=== PATIENT | female | born 1960 | race Caucasian/White ===

== ENCOUNTER → 2016-04-15 | Outpatient (CLI) | payer OTHER ==
[~2016-04-15] MED LIST: AMT10 PO; ASPCH81X PO; ATOR-26 PO; ATOR10TA82 PO; ATV1 PO; ATV5 PO; B-COTAB18 PO; BUPR-79 PO; BUPR300T43 PO; CALC-20 PO; CHOL100010 PO; CHOL2000 PO; CHOLCAP10 PO; CLOP1TAB15 PO; COCO1CAP PO; CODEINE #3 PO; CYAN500T13 PO; CYCL10TA6 PO; CYM/30 PO; CYM60 PO; DEXL60CA4 PO; DULO60CA44 PO; FERR1TAB23 PO; IBUP-1050 PO; INSU50IN3 SQ; ISOS-10 PO; MAGN500T15 PO; METF1000 PO; METO50TA16 PO; NAPR500T3 PO; NIAC500T11 PO; NTRGSL/4 SL; PRAS50TA PO; PROB1CAP PO; TRAM-10 PO; [UNRECOGNIZED DRUG - CODE] PO
== END | disposition home or self-care (01) ==
LOC: C.NEUR 14:48
PROVIDERS: ATTEND Internal Medicine Pulmonary Disease
DX: G47.33 Obstructive sleep apnea (adult) (pediatric) (principal); E66.01 Morbid (severe) obesity due to excess calories; F17.200 Nicotine dependence, unspecified, uncomplicated; Z91.19 Patient's noncompliance with other medical treatment and regimen

== ENCOUNTER → 2016-05-20 | Day surgery (SDC) | payer OTHER ==
[2016-05-14 13:04] VITALS: BMI 37.0
[~2016-05-20] VITALS: Ht 162.6 cm; Wt 97.7 kg
[~2016-05-20] MED LIST changes: -AMT10 PO; -ATOR10TA82 PO; -ATV5 PO; -BUPR-79 PO; -CHOL100010 PO; -CHOL2000 PO; -CYAN500T13 PO; -CYM60 PO; -INSU50IN3 SQ; -ISOS-10 PO; +LIDOCAINE HCL 2% 2 ML VIAL (20MG/ML) ONE; +PROPOFOL IV EMULSION 10 MG/ML 20 ML VIAL IV ONE; +SODIUM CHLORIDE 0.9% 500ML 500 ML IV ONE
[2016-05-20 08:10] VITALS: Ht 162.6 cm; Wt 97.7 kg
--- NOTE | 2016-05-20 08:33 | Endo History and Physical ---
History & Physical Date of Service: May 20, 2016. Chief Complaint: Abnormal CT scan Referring Physician: Dr. Orozco History of Present Illness 55 yo CF who presents for EGD secondary to abnormal CT Scan. Past Surgical History Hx Cardiac Surgery: Yes (HEART CATH, STENTS X2) Hx Internal Defibrillator: No Hx Pacemaker: No Hx Abdominal Surgery: Yes (ROBER BSO) Hx of Implantable Prosthesis: No Hx Post-Op Nausea and Vomiting: No Hx Cancer Surgery: No Hx Thoracic Surgery: No Hx Orthopedic: No Hx Urinary Tract Surgery: No Family History Esophogeal CA, IBD Social History Smoking Status: Current Every Day Smoker Hx Substance Use: Yes (MARIJUANA USE A COUPLE TIMES/DAY) Hx Alcohol Use: Yes (OCCASIONAL) Allergies Coded Allergies: No Known Allergies (Unverified , 05/20/16) Current Medications Reported Home Medications Medications Dose Route/Sig Max Daily Dose Days Date Category Dose Instructions Awake Maximum Strength (Caffeine) 200 Mg Tab 2 Tabs PO QAM 05/14/16 Reported Cymbalta (Duloxetine Hcl) 60 Mg Cap 60 Mg PO QAM 05/14/16 Reported [Codeine #3] 1 Tab PO DAILY PRN 05/14/16 Reported Naproxen 500 Mg Tab 1 Tab PO BID PRN 05/14/16 Reported Niacin 500 Mg Tab 500 Mg PO HS 05/14/16 Reported Magnesium 500 Mg Tab 1 Tab PO HS 05/14/16 Reported Iron (Ferrous Sulfate) 325 Mg Tab 1 Tab PO HS 05/14/16 Reported Coconut Oil Organic (Coconut Oil) 1,000 Mg Cap 2 Tabs PO BID 05/14/16 Reported Acidophilus Super Probiot (Probiotic Product) 1 Cap Cap 1 Tab PO BID 05/14/16 Reported Dhea (Prasterone (Dhea)) 50 Mg Tab 1 Tab PO BID 05/14/16 Reported Vitamin B Complex (B-Complex Vitamins) 1 Tab Tab 1 Tab PO QAM 05/14/16 Reported Cymbalta (Duloxetine Hcl) 30 Mg Cap 30 Mg PO QAM 05/14/16 Reported D 5000 (Cholecalciferol) 5,000 Unit Cap 3 Tabs PO BID 05/14/16 Reported Lipitor (Atorvastatin Calcium) 80 Mg Tab 80 Mg PO HS 05/14/16 Reported Bupropion Hcl Xl (Bupropion Hcl) 300 Mg Tab 1 Tab PO QAM 1/31/17 Reported Aspirin Chewable (Aspirin) 81 Mg Chew 3 Tabs PO HS 11/03/13 Reported Calcium 600 + D (Calcium Carbonate-Vitamin D) 1 Tab Tab 1 Tab PO HS 11/03/13 Reported Nitrostat (Nitroglycerin) 0.4 Mg Tab 1 Tab SL UD PRN 11/03/13 Reported Lopressor (Metoprolol Tartrate) 50 Mg Tab 50 Mg PO BID 11/03/13 Reported Dexilant (Dexlansoprazole) 60 Mg Cap 60 Mg PO HS 11/03/13 Reported Glucophage (Metformin Hcl) 1,000 Mg Tab 1,000 Mg PO BID 03/30/13 Reported Flexeril (Cyclobenzaprine Hcl) 10 Mg Tab 10 Mg PO TID PRN 03/30/13 Reported PRN Advil (Ibuprofen) 200 Mg Tab 200-600 Mg PO Q4-6H PRN 09/06/08 Reported Ultram (Tramadol HCl) 50 Mg Tab 100 Mg PO BID 08/09/08 Reported PRN PAIN Ativan * (Lorazepam) 1 Mg Tab 1 Mg PO QAM 11/25/06 Reported Plavix (Clopidogrel Bisulfate) 75 Mg Tab 75 Mg PO QAM 03/29/06 Reported Vital Signs Weight (Kilograms): 97.73 Height (Feet): 5 Height (Inches): 4 Physical Exam General Appearance: WD/WN, no apparent distress Respiratory/Chest: Auscultation: breath sounds normal Cardiovascular: Heart Auscultation: RRR Abdomen: Bowel Sounds: normal Inspection & Palpation: soft, non-distended, no tenderness, guarding & rebound Assessment and Plan Assessment: 55 yo CF who presents for EGD secondary to abnormal CT Scan. Plan: Proceed with EGD.
[2016-05-20 08:34] VITALS: TEMP 37.3
--- NOTE | 2016-05-20 09:01 | Discharge Instructions ---
Endoscopy Patient Instructions Date / Procedure(s) Performed May 20, 2016. EGD Allergy Information Coded Allergies: No Known Allergies (Unverified , 05/20/16) Discharge Date / Findings May 20, 2016. Gastritis s/p biopsies Medication Instructions Stopped Medication(s): PLAVIX OK to resume all medications today as prescribed Reported Home Medications Medications Dose Route/Sig Max Daily Dose Days Date Category Dose Instructions Awake Maximum Strength (Caffeine) 200 Mg Tab 2 Tabs PO QAM 05/14/16 Reported Cymbalta (Duloxetine Hcl) 60 Mg Cap 60 Mg PO QAM 05/14/16 Reported [Codeine #3] 1 Tab PO DAILY PRN 05/14/16 Reported Naproxen 500 Mg Tab 1 Tab PO BID PRN 05/14/16 Reported Niacin 500 Mg Tab 500 Mg PO HS 05/14/16 Reported Magnesium 500 Mg Tab 1 Tab PO HS 05/14/16 Reported Iron (Ferrous Sulfate) 325 Mg Tab 1 Tab PO HS 05/14/16 Reported Coconut Oil Organic (Coconut Oil) 1,000 Mg Cap 2 Tabs PO BID 05/14/16 Reported Acidophilus Super Probiot (Probiotic Product) 1 Cap Cap 1 Tab PO BID 05/14/16 Reported Dhea (Prasterone (Dhea)) 50 Mg Tab 1 Tab PO BID 05/14/16 Reported Vitamin B Complex (B-Complex Vitamins) 1 Tab Tab 1 Tab PO QAM 05/14/16 Reported Cymbalta (Duloxetine Hcl) 30 Mg Cap 30 Mg PO QAM 05/14/16 Reported D 5000 (Cholecalciferol) 5,000 Unit Cap 3 Tabs PO BID 05/14/16 Reported Lipitor (Atorvastatin Calcium) 80 Mg Tab 80 Mg PO HS 05/14/16 Reported Bupropion Hcl Xl (Bupropion Hcl) 300 Mg Tab 1 Tab PO QAM 05/14/16 Reported Aspirin Chewable (Aspirin) 81 Mg Chew 3 Tabs PO HS 11/03/13 Reported Calcium 600 + D (Calcium Carbonate-Vitamin D) 1 Tab Tab 1 Tab PO HS 11/03/13 Reported Nitrostat (Nitroglycerin) 0.4 Mg Tab 1 Tab SL UD PRN 11/03/13 Reported Lopressor (Metoprolol Tartrate) 50 Mg Tab 50 Mg PO BID 11/03/13 Reported Dexilant (Dexlansoprazole) 60 Mg Cap 60 Mg PO HS 11/03/13 Reported Glucophage (Metformin Hcl) 1,000 Mg Tab 1,000 Mg PO BID 03/30/13 Reported Flexeril (Cyclobenzaprine Hcl) 10 Mg Tab 10 Mg PO TID PRN 03/30/13 Reported PRN Advil (Ibuprofen) 200 Mg Tab 200-600 Mg PO Q4-6H PRN 09/06/08 Reported Ultram (Tramadol HCl) 50 Mg Tab 100 Mg PO BID 08/09/08 Reported PRN PAIN Ativan * (Lorazepam) 1 Mg Tab 1 Mg PO QAM 11/25/06 Reported Plavix (Clopidogrel Bisulfate) 75 Mg Tab 75 Mg PO QAM 03/29/06 Reported Provider Instructions Activity Restrictions - No exercising or heavy lifting for 24 hours. - Do not drink alcohol the day of the procedure. - Do not drive a car or operate machinery until the day after the procedure. - Do not make any important decisions or sign important papers in 24 hours after the procedure. Following Day: - Return to full activity which may include returning to work/school. Diet Start your diet with liquids and light foods (jello, soup, juice, toast). Then eat your usual diet if not nauseated. Treatment For Common After Affects For mild abdominal pain, bloating, or excessive gas: - Rest - Eat lightly - Lie on right side Follow-Up Information Follow-up with [facility] as scheduled Anesthesia Information What You Should Know You have had a procedure that required some medicine to reduce anxiety and discomfort. This treatment is called moderate sedation. After receiving the treatment, you may be sleepy, but you will be able to breathe on your own. The effects of the treatment may last for several hours. Follow these instructions along with Activity/Diet recommendations noted above: * Do NOT do anything where dizziness or clumsiness would be dangerous. * Rest quietly at home today, then you can be up and about tomorrow. * Have a responsible person stay with you the rest of today. * You may have had an I.V. today. If so, you may take the dressing off later today. Recommendations Call your doctor if: * Trouble breathing * Continuous vomiting for more than 24 hours * Temperature above 101 degrees * Severe abdominal pain or bloating * Pain not relieved by pain medicine ordered * There is increased drainage or redness from any incision * A large amount of rectal bleeding greater than 2-3 tablespoons. (If you had a polyp/s removed or have hemorrhoids, a small amount of blood - from the rectum is to be expected.) * You have any unanswered questions or concerns. IN THE EVENT OF A SERIOUS EMERGENCY, GO TO THE NEAREST EMERGENCY ROOM Your discharge instructions were prepared by provider Lenin Berry. Patient Instructions Signature Page Amber Griffin Patient (or Guardian) Signature/Date: I have read and understand the instructions given to me by my caregivers. Caregiver/RN/Doctor Signature/Date: The above-named patient and/or guardian has received patient instructions on this date. + Original Patient Signature Page (only) stays with chart. Please make copy for patient.
--- NOTE | 2016-05-20 09:14 | GI REPORT ---
Procedure Date: 05/20/2016 8:35 AM Procedure: Upper GI endoscopy Indications: Abnormal CT of the GI tract Medicines: Monitored Anesthesia Care Complications: No immediate complications. Estimated Blood Loss: Estimated blood loss: none. Procedure: Pre-Anesthesia Assessment: - Prior to the procedure, a History and Physical was performed, and patient medications and allergies were reviewed. The patient's tolerance of previous anesthesia was also reviewed. The risks and benefits of the procedure and the sedation options and risks were discussed with the patient. All questions were answered, and informed consent was obtained. Prior Anticoagulants: The patient last took aspirin 1 day and Plavix (clopidogrel) 5 days prior to the procedure. ASA Grade Assessment: III - A patient with severe systemic disease. After reviewing the risks and benefits, the patient was deemed in satisfactory condition to undergo the procedure. After obtaining informed consent, the endoscope was passed under direct vision. Throughout the procedure, the patient's blood pressure, pulse, and oxygen saturations were monitored continuously. The scope was introduced through the mouth, and advanced to the second part of duodenum. The upper GI endoscopy was accomplished without difficulty. The patient tolerated the procedure well. Findings: The examined esophagus was normal. Localized moderate inflammation characterized by erythema was found in the gastric antrum. Biopsies were taken with a cold forceps for histology. The examined duodenum was normal. Impression: - Normal esophagus. - Gastritis. Biopsied. - Normal examined duodenum. Recommendation: - Resume previous diet. - Continue present medications. - Await pathology results. - Return to primary care physician as previously scheduled. Lenin Berry DO 05/20/2016 9:14:26 AM This report has been signed electronically. Note Initiated On: 05/20/2016 8:35 AM I attest to the content of the Intraoperative Record and orders documented therein, exceptions below
--- NOTE | 2016-05-20 09:18 | Anesthesiology Progress Note ---
Anesthesia Post Op Note Date & Time May 20, 2016 at 09:18 Vital Signs Vital Signs Past 12 Hours Date Time Temp Pulse Resp B/P Pulse Ox O2 Delivery O2 Flow Rate FiO2 05/20/16 09:08 71 20 140/72 97 Room Air 05/20/16 08:34 37.3 73 18 184/95 95 Room Air Notes Mental Status: alert / awake / arousable, participated in evaluation Pt Amnestic to Procedure: Yes Nausea / Vomiting: adequately controlled Pain: adequately controlled Airway Patency, RR, SpO2: stable & adequate BP & HR: stable & adequate Hydration State: stable & adequate Anesthetic Complications: no major complications apparent
[2016-05-20 09:38] VITALS: BP 135/86; PULSE 68; O2SAT 96
== END | disposition home or self-care (01) ==
LOC: C.GI 07:51
PROVIDERS: ATTEND Internal Medicine
DX: K29.60 Other gastritis without bleeding (principal); Z80.0 Family history of malignant neoplasm of digestive organs; Z83.79 Family history of other diseases of the digestive system; F17.210 Nicotine dependence, cigarettes, uncomplicated

== ENCOUNTER → 2016-05-29 | Outpatient (CLI) | payer OTHER ==
[~2016-05-29] MED LIST changes: -LIDOCAINE HCL 2% 2 ML VIAL (20MG/ML) ONE; -PROPOFOL IV EMULSION 10 MG/ML 20 ML VIAL IV ONE; -SODIUM CHLORIDE 0.9% 500ML 500 ML IV ONE
[2016-05-29 17:36] LABS: BASO % 0.4 %; BASO ABS # 0.04 K/uL (0-0.2); COMPLETE YES; HEMATOCRIT 40.6 % (37-47); IG% 0.2 %; MEAN CELL VOLUME 88.6 fL (80-100); MEAN CORPUSCULAR HEMOGLOBIN 31.7 pg (25-34); MEAN CORPUSCULAR HGB CONC 35.7 g/dl (32-36); MEAN PLATELET VOLUME 9.9 fL (7.4-10.4); MONO % 5.6 %; NEUT % 58.8 %; PLATELET COUNT 248 K/uL (130-400); RED BLOOD COUNT 4.58 M/uL (4.2-5.4); WHITE BLOOD COUNT 9.32 K/uL (4.8-10.8)
[2016-05-29 18:03] LABS: ALT/SGPT 19 U/L (12-78); AMYLASE 21 U/L (25-115); AST/SGOT 10 U/L (15-37); BLOOD UREA NITROGEN 12 mg/dl (7-18); CARBON DIOXIDE 28 mmol/L (21-32); CHLORIDE 106 mmol/L (98-107); CHOLESTEROL 125 mg/dl (0-200); CREATININE 0.92 mg/dl (0.60-1.20); GLUCOSE 97 mg/dl (70-99); POTASSIUM 3.8 mmol/L (3.5-5.1); SODIUM 141 mmol/L (136-145)
[2016-05-29 18:06] LABS: CHOLESTEROL/HDL RATIO 2.8; HDL CHOLESTEROL 45 mg/dl; LDL CHOLESTEROL CALCULATED 55 mg/dl; TRIGLYCERIDES 126 mg/dl (0-150); VERY LOW DENSITY LIPOPROT CALC 25 mg/dl
[2016-05-30 05:51] LABS: ESTIMATED AVERAGE GLUCOSE 143 mg/dl; HA1C FLAG Normal (Normal)
== END | disposition home or self-care (01) ==
LOC: C.LAB1850 16:40
PROVIDERS: ATTEND Internal Medicine
DX: E11.65 Type 2 diabetes mellitus with hyperglycemia (principal); K76.0 Fatty (change of) liver, not elsewhere classified; R11.0 Nausea

== ENCOUNTER → 2016-08-26 | Outpatient (CLI) | payer OTHER ==
[2016-08-26 17:43] LABS: BASO % 0.4 %; BASO ABS # 0.04 K/uL (0-0.2); COMPLETE YES; EOS % 4.2 %; HEMATOCRIT 41.6 % (37-47); IG% 0.3 %; LYMPH % 23.5 %; LYMPH ABS # 2.22 K/uL (1.2-3.4); MEAN CELL VOLUME 89.8 fL (80-100); MEAN CORPUSCULAR HEMOGLOBIN 31.5 pg (25-34); MEAN CORPUSCULAR HGB CONC 35.1 g/dl (32-36); MEAN PLATELET VOLUME 10.3 fL (7.4-10.4); MONO % 3.9 %; NEUT % 67.7 %; PLATELET COUNT 275 K/uL (130-400); RED BLOOD COUNT 4.63 M/uL (4.2-5.4); WHITE BLOOD COUNT 9.45 K/uL (4.8-10.8)
[2016-08-26 17:49] LABS: URINE APPEARANCE CLEAR (CLEAR); URINE BILIRUBIN NEG (NEG); URINE COLOR DK YELLOW; URINE EPITHELIAL CELL AUTO >30 /lpf (0-5); URINE NITRITE NEG (NEG); UROBILINOGEN NEG (NEG)
[2016-08-26 17:52] LABS: MANUAL MICROSCOPIC REQUIRED? NO; REVIEW REQ? NO
[2016-08-26 18:23] LABS: BLOOD UREA NITROGEN 12 mg/dl (7-18); BUN/CREATININE RATIO 12.9 (10-20); CALCIUM 9.3 mg/dl (8.5-10.1); CARBON DIOXIDE 31 mmol/L (21-32); CHLORIDE 106 mmol/L (98-107); CREATININE 0.96 mg/dl (0.60-1.20); GLUCOSE 196 mg/dl (70-99); POTASSIUM 4.1 mmol/L (3.5-5.1); SODIUM 141 mmol/L (136-145)
[2016-08-26 18:34] LABS: THYROID STIMULATING HORMONE 0.795 uIu/ml (0.300-4.500)
[2016-08-27 07:34] LABS: ESTIMATED AVERAGE GLUCOSE 148 mg/dl; HA1C FLAG Normal (Normal)
== END | disposition home or self-care (01) ==
LOC: C.LAB1850 16:43
PROVIDERS: ATTEND Internal Medicine
DX: R31.0 Gross hematuria (principal); R13.10 Dysphagia, unspecified; E11.65 Type 2 diabetes mellitus with hyperglycemia

== ENCOUNTER → 2017-01-02 | Outpatient (CLI) | payer OTHER ==
[2017-01-02 17:42] LABS: HEMATOCRIT 41.2 % (37-47); MEAN CELL VOLUME 91.2 fL (80-100); MEAN CORPUSCULAR HEMOGLOBIN 32.3 pg (25-34); MEAN CORPUSCULAR HGB CONC 35.4 g/dl (32-36); MEAN PLATELET VOLUME 10.7 fL (7.4-10.4); PLATELET COUNT 250 K/uL (130-400); RED BLOOD COUNT 4.52 M/uL (4.2-5.4); WHITE BLOOD COUNT 8.84 K/uL (4.8-10.8)
[2017-01-02 17:51] LABS: URINE APPEARANCE CLEAR (CLEAR); URINE BILIRUBIN NEG (NEG); URINE COLOR YELLOW; URINE NITRITE NEG (NEG); URINE PH 6.5 (4.5-7.5); URINE SPECIFIC GRAVITY 1.016 (1.000-1.030); UROBILINOGEN NEG (NEG)
[2017-01-02 17:55] LABS: MANUAL MICROSCOPIC REQUIRED? NO; REVIEW REQ? NO
[2017-01-02 18:18] LABS: ALT/SGPT 18 U/L (12-78); AST/SGOT 10 U/L (15-37); BLOOD UREA NITROGEN 10 mg/dl (7-18); BUN/CREATININE RATIO 8.2 (10-20); CALCIUM 9.2 mg/dl (8.5-10.1); CARBON DIOXIDE 28 mmol/L (21-32); CHLORIDE 106 mmol/L (98-107); GLUCOSE 153 mg/dl (70-99); POTASSIUM 4.2 mmol/L (3.5-5.1); SODIUM 141 mmol/L (136-145)
[2017-01-02 18:20] LABS: ALKALINE PHOSPHATASE 88 U/L (45-117)
[2017-01-03 06:02] LABS: ESTIMATED AVERAGE GLUCOSE 143 mg/dl; HA1C FLAG Normal (Normal)
== END | disposition home or self-care (01) ==
LOC: C.LAB1850 16:30
PROVIDERS: ATTEND Internal Medicine
DX: N39.3 Stress incontinence (female) (male) (principal); E11.9 Type 2 diabetes mellitus without complications; E55.9 Vitamin D deficiency, unspecified; K76.0 Fatty (change of) liver, not elsewhere classified; R60.0 Localized edema

== ENCOUNTER → 2017-05-12 | Outpatient (CLI) | payer OTHER ==
[2017-05-12 17:14] LABS: HEMATOCRIT 41.7 % (37-47); HEMOGLOBIN 14.5 g/dL (12.0-16.0); MEAN CELL VOLUME 90.3 fL (80-100); MEAN CORPUSCULAR HEMOGLOBIN 31.4 pg (25-34); MEAN CORPUSCULAR HGB CONC 34.8 g/dl (32-36); MEAN PLATELET VOLUME 10.9 fL (7.4-10.4); PLATELET COUNT 236 K/uL (130-400); RED CELL DISTRIBUTION WIDTH CV 12.7 % (11.5-14.5); RED CELL DISTRIBUTION WIDTH SD 41.3 fL (36.4-46.3)
[2017-05-12 17:34] LABS: ALT/SGPT 17 U/L (12-78); AST/SGOT 10 U/L (15-37); BLOOD UREA NITROGEN 11 mg/dl (7-18); CALCIUM 9.2 mg/dl (8.5-10.1); CARBON DIOXIDE 27 mmol/L (21-32); CHOLESTEROL 101 mg/dl (0-200); CREATININE 1.04 mg/dl (0.60-1.20); GLUCOSE 142 mg/dl (70-99); POTASSIUM 4.1 mmol/L (3.5-5.1); SODIUM 139 mmol/L (136-145)
[2017-05-12 17:36] LABS: LDL CHOLESTEROL CALCULATED 37 mg/dl
[2017-05-13 06:21] LABS: HEMOGLOBIN A1C 6.4 % (4.5-5.6)
== END | disposition home or self-care (01) ==
LOC: C.LAB1850 16:00
PROVIDERS: ATTEND Internal Medicine
DX: E11.65 Type 2 diabetes mellitus with hyperglycemia (principal); E78.5 Hyperlipidemia, unspecified; E55.9 Vitamin D deficiency, unspecified; R10.9 Unspecified abdominal pain

== ENCOUNTER → 2017-07-14 | Outpatient (CLI) | payer OTHER ==
[~2017-07-14] MED LIST changes: +NAPR-1231 PO; -NAPR500T3 PO
[2017-07-14 17:39] LABS: BASO % 0.8 %; BASO ABS # 0.07 K/uL (0-0.2); EOS % 3.4 %; HEMOGLOBIN 14.2 g/dL (12.0-16.0); IG# 0.02 K/uL (0.00-0.02); LYMPH % 30.3 %; MEAN CELL VOLUME 88.4 fL (80-100); MEAN CORPUSCULAR HEMOGLOBIN 32.2 pg (25-34); MEAN CORPUSCULAR HGB CONC 36.4 g/dl (32-36); MEAN PLATELET VOLUME 10.7 fL (7.4-10.4); MONO % 4.3 %; MONO ABS # 0.38 K/uL (0.11-0.59); NEUT ABS # 5.45 K/uL (1.4-6.5); PLATELET COUNT 252 K/uL (130-400); RED CELL DISTRIBUTION WIDTH CV 12.5 % (11.5-14.5); WHITE BLOOD COUNT 8.92 K/uL (4.8-10.8)
[2017-07-14 18:23] LABS: ALBUMIN 3.6 gm/dl (3.4-5.0); ALT/SGPT 18 U/L (12-78); BLOOD UREA NITROGEN 14 mg/dl (7-18); CARBON DIOXIDE 28 mmol/L (21-32); CREATININE 1.12 mg/dl (0.60-1.20); GLUCOSE 108 mg/dl (70-99); POTASSIUM 4.2 mmol/L (3.5-5.1); SODIUM 138 mmol/L (136-145)
[2017-07-14 18:34] LABS: ALKALINE PHOSPHATASE 127 U/L (45-117); AST/SGOT 13 U/L (15-37); TOTAL PROTEIN 7.2 gm/dl (6.4-8.2)
== END | disposition home or self-care (01) ==
LOC: C.LAB1850 16:31
PROVIDERS: ATTEND Internal Medicine
DX: R42 Dizziness and giddiness (principal)

== ENCOUNTER → 2017-11-14 | Outpatient (CLI) | payer OTHER ==
--- NOTE | 2017-11-14 14:37 | MAMMOGRAPHY REPORT ---
BILATERAL DIGITAL DIAGNOSTIC MAMMOGRAM TOMOSYNTHESIS WITH CAD: 11/14/2017 CLINICAL HISTORY: The patient reports nonfocal left breast discomfort intermittently for at least one year. She denies any palpable lump, skin changes, or other complaints. TECHNIQUE: The study was acquired using full field digital technology and interpreted from soft copy. Breast tomosynthesis in addition to standard 2D mammography was performed. Current study was also ev aluated with a Computer Aided Detection (CAD) system. Bilateral CC and MLO to gentamicin that this i mages were obtained. COMPARISON: Comparison is made to exams dated: 10/24/2009 mammogram - [facility]. BREAST COMPOSITION: There are scattered areas of fibroglandular density in both breasts. FINDINGS: A square marker was placed by the technologist on the left breast at the site of pain, however, on di scussion with the patient the pain is diffuse and nonfocal. There are no suspicious masses, calcific ations, or areas of architectural distortion noted within either breast. There has been no significa nt interval change mammographically compared to prior exams. A circular marker jolly a mole on the l eft upper outer breast. As the pain is diffuse and nonfocal and given no mammographic abnormality, t argeted ultrasound was not performed. IMPRESSION: ACR BI-RADS CATEGORY 2: BENIGN No etiology for intermittent left breast discomfort evident. There is no mammographic evidence of ma lignancy in either breast. Recommend clinical follow-up for left breast discomfort, and recommend ro utine bilateral screening mammograms in one year. The patient has been verbally notified of the results. Some breast cancers are not detected with mammography. A negative mammographic report should not renetta y biopsy if a clinically suggestive mass is present. Inessa Hermosillo M.D. /:11/14/2017 11:57:24 Validation Technician: RT Laureano(Fidencio)(M), [facility] letter sent: Normal 1/2 BI-RADS Code: ACR BI-RADS Category 2: Benign
== END | disposition home or self-care (01) ==
LOC: C.MAMM 10:37
PROVIDERS: ATTEND Internal Medicine
DX: N64.4 Mastodynia (principal)

== ENCOUNTER 2023-08-19 13:20 | Inpatient (IN) ==
--- NOTE | 2023-08-19 14:20 | Emergency Department Note ---
Impression & Plan Paranoid schizophrenia, Psychosis, Acute UTI (urinary tract infection) ED Provider Note NAME: JAE HUERTA AGE: 63 SEX: F : 1960 ARRIVES VIA: Law Enforcement Transport INFORMANT: Patient, ED PROVIDER(S): Viktor Vanegas DO CHIEF COMPLAINT: Mental health evaluation HPI: The patient is a 63-year-old female who is well-known to our facility who presented to the emergency department for an evaluation with the police. The patient has a history of delusional thoughts. She also has a history of schizophrenia. Apparently the patient arrived with police after she was in a neighbor's home. She was trespassing. She has a history of delusional thoughts especially around her neighbors. This is not new. The patient was sprayed with bug spray in the face and hair. She denies having any visual difficulty. She denies having any nausea or vomiting. The patient states that she is been compliant with her outpatient medications. She presented with police for medical clearance. ROS: See above HPI for pertinent positives & negatives. A total of 10 systems reviewed and were otherwise negative. PAST MEDICAL HISTORY: See Below PAST SURGICAL HISTORY: See Below FAMILY HISTORY: See Below SOCIAL HISTORY: See Below HOME MEDICATIONS: See Below ALLERGIES: See Below VITALS: See Below PHYSICAL EXAMINATION: GENERAL: Patient is awake and alert. She is nonanxious appearing. She does smell of cat urine. EYES: The conjunctivae are clear. The pupils are round and reactive. EARS, NOSE, MOUTH AND THROAT: The nose is without any evidence of any deformity. NECK: The neck is nontender and supple. RESPIRATORY: Normal respiratory effort is noted there is no evidence of wheezing rhonchi or rales CARDIOVASCULAR: Regular rate and rhythm noted there no murmurs rubs or gallops normal S1 normal S2. GASTROINTESTINAL: The abdomen is soft. Abdomen is nontender. MUSCULOSKELETAL/EXTREMITIES: There is no evidence of gross deformity full range of motion is noted in the hips and shoulders. SKIN: There is no obvious evidence of any rash. There are no petechiae, pallor or cyanosis noted. NEUROLOGIC: Patient is awake alert and oriented x3 PSYCH: The patient makes good eye contact mostly evaluation. Patient's thought process is somewhat tangential. She does not remember being in her neighbors home. She states the police picked her up from her home but then later states that the police picked her up for a number of her neighbors home. The patient is currently denying any suicidal homicidal ideation. MEDICAL DECISION MAKING: The patient is a 63-year-old female who presented to the department for evaluation with police. The patient has been having chronic problems with schizophrenia. She has psychotic thoughts about her neighbors. She was brought in by police after she was found in her neighbors home. The patient states that she has been compliant with her outpatient medications. Extensive review the patient's previous visits as well as her overall condition does not make me feel the patient is a good candidate for outpatient treatment. For this reason the patient was felt to be a better candidate for inpatient management. I discussed the patient's condition with the emergency department off pillowcase cutter. Triage Nursing notes reviewed. Prior medical records reviewed Vital Signs: reviewed and remarkable for no significant abnormalities Differential diagnosis: Mood disorder, infection, hypoglycemia, electrolyte abnormalities, cardiac sources, intracerebral event, toxicologic, trauma, neurologic, as well as other pathologies. ER treatment provided: See below Diagnostics interpreted by me: ECG: EKG was obtained in the emergency department. My interpretation is normal sinus rhythm at 95 bpm. There is no ectopy. There is no acute ST segment abnormalities noted. This was compared to a tracing from April 24, 2020. No changes were noted Laboratory studies: As stated above and show below. Imaging studies: See below. Consultation(s): I discussed this case with the emergency department mental health pillowcase cutter The patient was evaluated by the delegate from [facility]. The patient was felt to be a good candidate for admission on their inpatient psychiatric unit. Past Med/Surg History Medical History Schizophrenia Psychosis Delusions Encounter for pre-operative examination Diverticulitis ? PT NOT SURE Leg swelling left leg worse/right leg swells on occ Excessive daytime sleepiness on occassion History of anesthesia reaction wake up during anesthesia Gallstones Kidney stones will flare occ Fatty liver Anxiety Poor historian Abdominal tenderness reason for upcoming procedure History of high blood pressure High cholesterol Migraines Type 2 diabetes mellitus ? controlled Encounter for screening for malignant neoplasm of rectum Encounter for screening for malignant neoplasm of colon Dyspnea on exertion Abdominal pain Orthostatic lightheadedness Palpitations Hypomagnesemia Hypophosphatemia Atypical chest pain Radiculopathy, lumbar region Rectal pain Early satiety Nausea Abdominal pain Vitamin D deficiency Obstructive sleep apnea couldn't tolerate cpap History of renal stone Arteriosclerotic cardiovascular disease (ASCVD) ADD (attention deficit disorder) Surgical History H/O sinus surgery H/O esophagogastroduodenoscopy H/O colonoscopy H/O cardiac catheterization 2004...tx to gen/ 2 stents total. H/O: hysterectomy H/O oral surgery Family History Father Acute myocardial infarction Myocardial infarction Hypertension Mother , age 49 Cancer Sister Alcoholism Depression Unknown Breast cancer Grandmother (Paternal) Myocardial infarction Other Antithrombin 3 deficiency Denies family history of Ovarian cancer Prostate cancer Colonic polyp Social History Smoking Status: Former smoker Tobacco Type: Cigarettes Cigarettes Per Day: 2 PER DAY AVERAGE/ADVISED NPO; Second Hand Exposure: No; Do You Dip or Chew Tobacco: No; Hx Alcohol Use: No Preferred Language: Kenyan Communication Ability: Effective Visual Impairment: No Limitations Hearing Ability: Normal Cyber Security Manager Required: No Beliefs That Will Affect Care: None marital status: Single Current Living Situation: Alone current occupational status: disabled Feels Safe at Home: Yes Childhood Exposure to Second-Hand Smoke: No Dental Care, Regularly: No Physical Activity Frequency: 1-2 Times per Week Seatbelt Use: always Sunscreen Use: No Gender Identity: Female Assistive Devices: Denture - Upper and Glasses Allergies Allergies Allergy/AdvReac Type Severity Reaction Status Date / Time fentanyl Allergy Unknown see notes Verified 07/14/23 14:13 below Home Meds Home Medications Medication Instructions Recorded Confirmed cholecalciferol (vitamin D3) 125 125 mcg PO QAM 01/09/22 07/14/23 mcg (5,000 unit) capsule mecobalamin (vitamin B12) 5,000 5,000 mcg PO QAM 01/09/22 07/14/23 mcg disintegrating tablet aspirin 81 mg tablet,delayed 81 mg PO QPM 03/19/22 07/14/23 release caffeine 100 mg tablet 200 mg PO UD PRN migraines 10/10/22 07/14/23 omeprazole 40 mg capsule,delayed 40 mg PO HS 10/10/22 07/14/23 release ibuprofen 200 mg capsule 200 mg PO Q6H PRN 02/27/23 07/14/23 Previous Rx's Medication Instructions Recorded nystatin 100,000 unit/gram topical 1 applic topical BID #60 grams 04/30/21 powder nitroglycerin 0.4 mg sublingual 0.4 mg sublingual DIRECTED PRN 10/24/21 tablet Chest Pain #30 tabs clopidogrel 75 mg tablet 75 mg PO QAM #30 tabs 02/27/23 cyclobenzaprine 5 mg tablet 5 mg PO BID PRN Muscle Spasm #30 02/27/23 tabs atorvastatin 80 mg tablet 80 mg PO QPM #90 tabs 03/04/23 peg [id number] See Rx Instructions PO .COMPLEX #2 04/09/23 178.7-7.3-0.5-1.12-0.9 gram oral mL soln (Suflave) amlodipine 5 mg tablet 5 mg PO BID #180 tabs 05/22/23 bupropion HCl 300 mg 24 hr tablet, 300 mg PO QAM #90 tabs 07/10/23 extended release metformin 1,000 mg tablet 1,000 mg PO BID #180 tabs 07/10/23 metoprolol tartrate 50 mg tablet 50 mg PO BID 90 days #180 tabs 07/10/23 buspirone 5 mg tablet 5 mg PO BID #60 tabs 07/14/23 duloxetine 30 mg capsule,delayed 30 mg PO QAM #90 caps 07/14/23 release duloxetine 60 mg capsule,delayed 60 mg PO QAM #90 caps 07/14/23 release valsartan 40 mg tablet 40 mg PO BID #180 tabs 07/14/23 Results & Data (ED) Vital Signs Vital Signs - 24 hr 08/19/23 13:27 08/19/23 15:22 Temperature 36.6 C Temperature Source Oral Pulse Rate 105 H Pulse Rate [Radial] 90 Pulse Rhythm [Radial] Regular Pulse Strength Normal Respiratory Rate 18 18 Respiratory Effort / Characteristics Non-Labored Spontaneous Non-Labored Respiratory Depth Normal Normal Respiratory Pattern Regular Regular Blood Pressure 145/88 H Blood Pressure [Left Arm] 113/77 Blood Pressure Mean 107 Blood Pressure Mean [Left Arm] 89 Blood Pressure Position Sitting Pulse Oximetry 95 97 Oxygen Delivery Method Room Air Room Air Sepsis Recent Fever Within 48 Hours No Sepsis New/Unexplained Change in Mental Status No Sepsis Action Taken by Nursing No Action Required Home Medications Current Medication List: was personally reviewed by me Laboratory Data Attestation: I reviewed the patient's lab results. 08/19/23 14:22 08/19/23 14:22 Lab Results 08/19/23 08/19/23 Range/Units 13:23 14:22 WBC 8.52 (4.8-10.8) K/ul RBC 3.77 L (4.20-5.40) M/uL Hgb 11.3 L (12.0-16.0) g/dl Hct 33.7 L (37.0-47.0) % MCV 89.4 (80.0-100.0) fL MCH 30.0 (25.0-34.0) pg MCHC 33.5 (32.0-36.0) g/dL RDW Std Deviation 45.8 (36.4-46.3) fL RDW Coeff of Stacie 14.1 (11.5-14.5) % Plt Count 273 (130-400) K/uL MPV 10.7 (9.4-12.4) fL Immature Gran % (Auto) 0.5 % Neut % (Auto) 69.5 % Lymph % (Auto) 21.5 % [place] % (Auto) 5.4 % Eos % (Auto) 2.5 % Baso % (Auto) 0.6 % Neut # (Auto) 5.93 (1.40-6.50) K/uL Lymph # (Auto) 1.83 (1.20-3.40) K/uL Morrison # (Auto) 0.46 (0.11-0.59) K/uL Eos # (Auto) 0.21 (0.00-0.50) K/uL Baso # (Auto) 0.05 (0.00-0.20) K/uL Immature Gran # (Auto) 0.04 (0.01-0.20) K/uL Sodium 141 (136-145) mmol/L Potassium 4.1 (3.5-5.1) mmol/L Chloride 107 (98-107) mmol/L Carbon Dioxide 25 (21-32) mmol/L Anion Gap 9 (3-11) BUN 30 H (6-23) mg/dl Creatinine 2.00 H (0.6-1.2) mg/dl Est Cr Clr Drug Dosing Not Reportable Est GFR ( Amer) 29.6 ml/min Est GFR (Non-Af Amer) 25.6 ml/min BUN/Creatinine Ratio 15.0 (10-20) Glucose 104 H (70-99(Fasting)) mg/dl Calcium 10.4 H (8.6-10.3) mg/dl Total Bilirubin 0.4 (0.2-1.0) mg/dl AST 10 L (13-39) U/L ALT 8 (7-52) U/L Alkaline Phosphatase 82 (34-104) U/L Troponin I High Sens 8.4 (0-14) pg/ml Total Protein 7.0 (6.0-8.3) gm/dl Albumin 4.0 (3.4-5.0) gm/dl Globulin 3.0 (2.5-4.0) gm/dl Albumin/Globulin Ratio 1.3 (0.9-2) TSH 1.941 (0.300-4.500) uIu/ml Urine Color Yellow Urine Appearance Cloudy A (Clear) Urine pH 5.5 (4.5-7.5) Ur Specific [place] 1.018 (1.000-1.030) Urine Protein 1+ H (Negative) Urine Glucose (UA) Negative (Negative) Urine Ketones Trace H (Negative) Urine Blood 1+ H (Negative) Urine Nitrite Negative (Negative) Urine Bilirubin Negative (Negative) Urine Urobilinogen Negative (Negative) Ur Leukocyte Esterase 1+ H (Negative) Urine WBC (Auto) 21-50 H (0-5) /hpf Urine RBC (Auto) 3-5 H (0-2) /hpf U Hyaline Cast (Auto) >20 H (0-2) /lpf U Epithel Cells (Auto) 11-20 H (0-2) /hpf Urine Bacteria (Auto) 4+ H (None Seen) Granular Casts Present A (None Prsent) /lpf Other Casts Mixed Cell Cast A (None Prsent) /lpf Salicylates < 3.0 L (3.0-30) mg/dl Urine Opiates Screen Neg (Neg) Ur Methadone, Qual Neg (Neg) Acetaminophen < 3 L (10-30) ug/ml Urine Barbiturates Neg (Neg) Ur Phencyclidine (PCP) Neg (Neg) U Amphetamin/Meth Scrn Neg (Neg) MDMA (Ecstasy) Screen Pos H (Neg) U Benzodiazepines Scrn Neg (Neg) Ur Cocaine Metabolite Neg (Neg) U Marijuana (THC) Screen Neg (Neg) Ethyl Alcohol mg/dL < 10.0 (<10.0) mg/dl SARS-CoV-2, RNA, NAAT NEGATIVE (NEGATIVE) Discharge Plan Visit Data Chief Complaint: Medical Clearance ED Provider: Vincent Tyler Discharge Problem: Paranoid schizophrenia, Psychosis, Acute UTI (urinary tract infection) Patient Disposition: Transfer Behavioral Health Fac Forms Stand Alone Forms: [facility] Prescriptions Prescriptions: No Action nystatin 100,000 unit/gram powder 1 applic topical BID Qty: 60 0RF nitroglycerin 0.4 mg tablet, sublingual 0.4 mg SL DIRECTED PRN (Reason: Chest Pain) Qty: 30 3RF Rx Instructions: PLACE ONE TABLET UNDER THE TONGUE EVERY 5 MINUTES FOR UP TO 3 DOSES OVER 15 MINUTES IF NEEDED FOR CHEST PAIN atorvastatin 80 mg tablet 80 mg PO QPM Qty: 90 3RF Patient Comments: Not taking Suflave 178.7-7.3-0.5 gram recon soln See Rx Instructions PO .COMPLEX Qty: 2 0RF Rx Instructions: orally; TAKE FIRST DOSE AT 6 PM AND SECOND DOSE 6 HOURS PRIOR TO PROCEDURE BIN: [id number] PCN: XIN GROUP: [id number] bupropion HCl 300 mg tablet extended release 24 hr 300 mg PO QAM Qty: 90 3RF metoprolol tartrate 50 mg tablet 50 mg PO BID 90 Days Qty: 180 1RF metformin 1,000 mg tablet 1,000 mg PO BID Qty: 180 1RF amlodipine 5 mg tablet 5 mg PO BID Qty: 180 2RF cholecalciferol (vitamin D3) 125 mcg (5,000 unit) capsule 125 mcg PO QAM mecobalamin (vitamin B12) 5,000 mcg tablet,disintegrating 5,000 mcg PO QAM ibuprofen 200 mg capsule 200 mg PO Q6H PRN clopidogrel 75 mg tablet 75 mg PO QAM Qty: 30 5RF cyclobenzaprine 5 mg tablet 5 mg PO BID PRN (Reason: Muscle Spasm) Qty: 30 3RF aspirin 81 mg tablet,delayed release (DR/EC) 81 mg PO QPM duloxetine 30 mg capsule,delayed release(DR/EC) 30 mg PO QAM Qty: 90 1RF Rx Instructions: Take with 60mg capsule for total of 90mg duloxetine 60 mg capsule,delayed release(DR/EC) 60 mg PO QAM Qty: 90 1RF Rx Instructions: Take with 30mg capsule for total of 90mg daily valsartan 40 mg tablet 40 mg PO BID Qty: 180 1RF buspirone 5 mg tablet 5 mg PO BID Qty: 60 2RF omeprazole 40 mg capsule,delayed release(DR/EC) 40 mg PO HS caffeine 100 mg Tablet 200 mg PO UD PRN (Reason: migraines) Referrals Referrals: ,Viktor Ramirez MD [Primary Care Provider] - Discharge Problem: Psychosis Qualifiers: Psychosis type: other Qualified Code(s): F28 - Other psychotic disorder not due to a substance or known physiological condition
[2023-08-19 14:44] LABS: Basophils # (auto) 0.05 K/uL (0.00-0.20); Basophils % (auto) 0.6 %; Eosinophils # (auto) 0.21 K/uL (0.00-0.50); Eosinophils % (auto) 2.5 %; Hematocrit (blood only) 33.7 % (37.0-47.0); Hemoglobin 11.3 g/dl (12.0-16.0); Immature Granulocytes # (auto) 0.04 K/uL (0.01-0.20); Immature Granulocytes % (auto) 0.5 %; Lymphocytes # (auto) 1.83 K/uL (1.20-3.40); Lymphocytes % (auto) 21.5 %; Mean Corpuscular Hgb Conc 33.5 g/dL (32.0-36.0); Mean Corpuscular Volume 89.4 fL (80.0-100.0); Mean Platelet Volume 10.7 fL (9.4-12.4); Monocytes # (auto) 0.46 K/uL (0.11-0.59); Monocytes % (auto) 5.4 %; Neutrophils # (auto) 5.93 K/uL (1.40-6.50); Neutrophils % (auto) 69.5 %; Platelet Count 273 K/uL (130-400); RDW Coefficient of Variation 14.1 % (11.5-14.5); RDW Standard Deviation 45.8 fL (36.4-46.3); Red Blood Count 3.77 M/uL (4.20-5.40); White Blood Count 8.52 K/ul (4.8-10.8)
[2023-08-19 14:55] LABS: Anion Gap 9 (3-11); Bilirubin,Total 0.4 mg/dl (0.2-1.0); Calcium 10.4 mg/dl (8.6-10.3); Carbon Dioxide 25 mmol/L (21-32); Chloride 107 mmol/L (98-107); Potassium 4.1 mmol/L (3.5-5.1); Sodium 141 mmol/L (136-145)
[2023-08-19 15:01] LABS: Acetaminophen < 3 ug/ml (10-30); Alanine Aminotransferase 8 U/L (7-52); Albumin Globulin Ratio 1.3 (0.9-2); Alkaline Phosphatase 82 U/L (34-104); Aspartate Aminotransferase 10 U/L (13-39); Blood Urea Nitrogen 30 mg/dl (6-23); Est GFR (African American) 29.6 ml/min; Est GFR (Non-African American) 25.6 ml/min; Glucose 104 mg/dl (70-99(Fasting)); Salicylate < 3.0 mg/dl (3.0-30)
[2023-08-19 15:06] LABS: Troponin I High Sensitivity 8.4 pg/ml (0-14)
[2023-08-19 15:15] LABS: Thyroid Stimulating Hormone 1.941 uIu/ml (0.300-4.500)
[2023-08-19 15:20] LABS: Amphetamines+Metham, Urine Neg (Neg); Barbiturates, Urine Neg (Neg); Benzodiazepine, Urine Neg (Neg); Cocaine, Urine Neg (Neg); MDMA (Ecstacy), Urine Pos (Neg); Marijuana, Urine Neg (Neg); Methadone, Urine Neg (Neg); Opiate, Urine Neg (Neg); Phencyclidine, Urine Neg (Neg)
[2023-08-19 16:33] LABS: Appearance Urine Cloudy (Clear); Bacteria Urine Automated 4+ (None Seen); Bilirubin Urine Negative (Negative); Blood Urine 1+ (Negative); Cast Urine Automated >20 /lpf (0-2); Color Urine Yellow; Glucose Urine UA Negative (Negative); Ketones Urine Trace (Negative); Leukocyte Esterase Urine 1+ (Negative); Nitrite Urine Negative (Negative); Protein Urine 1+ (Negative); Specific Gravity Urine 1.018 (1.000-1.030); Urobilinogen Urine Negative (Negative); WBC Urine Automated 21-50 /hpf (0-5); pH Urine 5.5 (4.5-7.5)
[2023-08-19 16:53] LABS: Granular Casts Urine Present /lpf (None Prsent)
[2023-08-19] MEDS ORDERED: CYCLOBENZAPRINE HCL 5 MG TAB PO PRN (22:23)
[2023-08-19] MEDS ORDERED: NITROGLYCERIN SL 0.4 MG/TAB TAB SL PRN (22:23)
--- NOTE | 2023-08-19 23:02 | Emergency Department Note ---
ED Visit Note 05/17/2001: Signout from Dr. Vanegas. 63-year-old female with history of schizophrenia. 302. Awaiting placement. .
[2023-08-19] MEDS: METOPROLOL TARTRATE 50 MG TAB PO SCH (23:19)
[2023-08-19] MEDS: CEFDINIR 300 MG CAP PO STA (23:19)
[2023-08-19] MEDS: VALSARTAN 80 MG TAB PO SCH (23:19)
[2023-08-20] MEDS ORDERED: SODIUM CHLORIDE 0.65% NA SOLN 45 ML (OCEAN) PRN (02:54)
[2023-08-20] MEDS ORDERED: BISMUTH SUBSALICYLATE LIQD 236 ML PO PRN (02:54)
--- NOTE | 2023-08-20 04:36 | Electrocardiogram Report ---
Test Reason : Blood Pressure : / mmHG Vent. Rate : 095 BPM Atrial Rate : 095 BPM P-R Int : 192 ms QRS Dur : 086 ms QT Int : 346 ms P-R-T Axes : 065 -26 073 degrees QTc Int : 434 ms Normal sinus rhythm Normal ECG When compared with ECG of 24-APR-2020 14:24, Borderline criteria for Anterolateral infarct are no longer Present Confirmed by Miguel A George ([id number]) on 08/20/2023 4:35:58 AM Referred By: Confirmed By:Miguel A George
[2023-08-20] MEDS ORDERED: busPIRone 5 MG TAB PO SCH (09:00)
[2023-08-20] MEDS ORDERED: buPROPion XL 300 MG TABCR PO SCH (09:00)
[2023-08-20] MEDS ORDERED: CEFDINIR 300 MG CAP PO SCH (09:00)
[2023-08-20] MEDS ORDERED: CLOPIDOGREL BISULFATE 75 MG TAB PO SCH (09:00)
[2023-08-20] MEDS ORDERED: amLODIPine BESYLATE 5 MG TAB PO SCH (09:00)
[2023-08-20] MEDS ORDERED: metFORMIN HCL 500 MG TAB PO SCH (09:00)
[2023-08-20] MEDS: NICOTINE 7 MG/24 HR TDSY TD SCH (10:38)
[2023-08-20] MEDS: metFORMIN HCL 500 MG TAB PO SCH (10:39)
[2023-08-20] MEDS: DULoxetine HCL 30 MG CAP PO SCH (10:39)
[2023-08-20] MEDS: amLODIPine BESYLATE 5 MG TAB PO SCH (10:39)
[2023-08-20] MEDS: VALSARTAN 80 MG TAB PO SCH (10:40)
[2023-08-20] MEDS: METOPROLOL TARTRATE 50 MG TAB PO SCH (10:40)
[2023-08-20] MEDS: buPROPion XL 300 MG TABCR PO SCH (10:40)
[2023-08-20] MEDS: busPIRone 5 MG TAB PO SCH (10:40)
[2023-08-20] MEDS: CLOPIDOGREL BISULFATE 75 MG TAB PO SCH (10:40)
[2023-08-20] MEDS: ACETAMINOPHEN 325 MG TAB PO PRN (15:43)
[2023-08-20] MEDS: ALUMINUM/MAGNESIUM SUSP 30 ML UDC PO PRN (16:00)
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
--- NOTE | 2023-08-20 16:24 | Hospitalist Consultation ---
Date of Consultation August 20, 2023 Assessment & Plan (1) Diabetes mellitus type 2, uncontrolled: Patient continues on home medications which metformin, (2) Hypertension: Continues on metoprolol and losartan Is in mild ALBA on CKD 3 we will evaluate once she is hydrated and watch her labs rechecking labs in 48 hours (3) Acute UTI (urinary tract infection): Patient has gram-negative urinary tract infection present on admission patient is on cefdinir at this point in time, on 10 August she had a Klebsiella urinary tract infection which was pansensitive she says she did not believe she completed all of her outpatient antibiotics. Was on cephalexin as an outpatient (4) Paranoid schizophrenia: Patient is admitted manage to the behavioral health unit History of Present Illness Attending Physician: Alejandro Piper MD History of Present Illness 63 F who is admitted to psychiatry as a 302, reportedly has a warrant for her arrest as she was trespassing has medical history of Hypertension cad dyslipidemia and diabetes has a uti with Gr negative rods present on admission Allergies Allergy/AdvReac Type Severity Reaction Status Date / Time fentanyl Allergy Unknown see notes Verified 07/14/23 14:13 below Home Medications Medication Instructions Recorded Confirmed Type nystatin 100,000 unit/gram topical 1 applic topical BID #60 grams 04/30/21 07/14/23 Rx powder nitroglycerin 0.4 mg sublingual 0.4 mg sublingual DIRECTED PRN 10/24/21 07/14/23 Rx tablet Chest Pain #30 tabs cholecalciferol (vitamin D3) 125 125 mcg PO QAM 01/09/22 07/14/23 History mcg (5,000 unit) capsule mecobalamin (vitamin B12) 5,000 5,000 mcg PO QAM 01/09/22 07/14/23 History mcg disintegrating tablet aspirin 81 mg tablet,delayed 81 mg PO QPM 03/19/22 07/14/23 History release caffeine 100 mg tablet 200 mg PO UD PRN migraines 10/10/22 07/14/23 History omeprazole 40 mg capsule,delayed 40 mg PO HS 10/10/22 07/14/23 History release clopidogrel 75 mg tablet 75 mg PO QAM #30 tabs 02/27/23 07/14/23 Rx cyclobenzaprine 5 mg tablet 5 mg PO BID PRN Muscle Spasm #30 11/16/23 04/01/24 Rx tabs ibuprofen 200 mg capsule 200 mg PO Q6H PRN 02/27/23 07/14/23 History atorvastatin 80 mg tablet 80 mg PO QPM #90 tabs 03/04/23 07/14/23 Rx peg 3350-sod sulf,[id number] See Rx Instructions PO .COMPLEX #2 04/09/23 07/14/23 Rx 178.7-7.3-0.5-1.12-0.9 gram oral mL soln (Suflave) amlodipine 5 mg tablet 5 mg PO BID #180 tabs 05/22/23 07/14/23 Rx bupropion HCl 300 mg 24 hr tablet, 300 mg PO QAM #90 tabs 07/10/23 07/14/23 Rx extended release metformin 1,000 mg tablet 1,000 mg PO BID #180 tabs 07/10/23 07/14/23 Rx metoprolol tartrate 50 mg tablet 50 mg PO BID 90 days #180 tabs 07/10/23 07/14/23 Rx buspirone 5 mg tablet 5 mg PO BID #60 tabs 07/14/23 07/14/23 Rx duloxetine 30 mg capsule,delayed 30 mg PO QAM #90 caps 07/14/23 07/14/23 Rx release duloxetine 60 mg capsule,delayed 60 mg PO QAM #90 caps 07/14/23 07/14/23 Rx release valsartan 40 mg tablet 40 mg PO BID #180 tabs 07/14/23 07/14/23 Rx Patient History Medical History Schizophrenia Psychosis Delusions Encounter for pre-operative examination Diverticulitis ? PT NOT SURE Leg swelling left leg worse/right leg swells on occ Excessive daytime sleepiness on occassion History of anesthesia reaction wake up during anesthesia Gallstones Kidney stones will flare occ Fatty liver Anxiety Poor historian Abdominal tenderness reason for upcoming procedure History of high blood pressure High cholesterol Migraines Type 2 diabetes mellitus ? controlled Encounter for screening for malignant neoplasm of rectum Encounter for screening for malignant neoplasm of colon Dyspnea on exertion Abdominal pain Orthostatic lightheadedness Palpitations Hypomagnesemia Hypophosphatemia Atypical chest pain Radiculopathy, lumbar region Rectal pain Early satiety Nausea Abdominal pain Vitamin D deficiency Obstructive sleep apnea couldn't tolerate cpap History of renal stone Arteriosclerotic cardiovascular disease (ASCVD) ADD (attention deficit disorder) Surgical History H/O sinus surgery H/O esophagogastroduodenoscopy H/O colonoscopy H/O cardiac catheterization 2004...tx to gen/ 2 stents total. H/O: hysterectomy H/O oral surgery Family History Father Acute myocardial infarction Myocardial infarction Hypertension Mother , age 49 Cancer Sister Alcoholism Depression Unknown Breast cancer Grandmother (Paternal) Myocardial infarction Other Antithrombin 3 deficiency Denies family history of Ovarian cancer Prostate cancer Colonic polyp Social History Smoking Status: Current every day smoker Tobacco Type: Cigarettes Cigarettes Per Day: 2 PER DAY AVERAGE/ADVISED NPO; Second Hand Exposure: No; Do You Dip or Chew Tobacco: No; Hx Alcohol Use: No Preferred Language: Tajik Communication Ability: Effective Visual Impairment: No Limitations Hearing Ability: Normal 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 Beliefs That Will Affect Care: None marital status: Single Current Living Situation: Alone current occupational status: disabled Feels Safe at Home: Yes Childhood Exposure to Second-Hand Smoke: No Dental Care, Regularly: No Physical Activity Frequency: 1-2 Times per Week Seatbelt Use: always Sunscreen Use: No Gender Identity: Female Assistive Devices: Glasses Review of Systems Review of Systems: Mild distress and fatigue no headache, no visual changes no speech or swallowing issues no chest pain, pressure or palpitations no shortness of breath, cough or wheezes no abdominal pain, nausea or vomiting, diarrhea or constipation no dysuria, hematuria or frequency no focal joint pain or swelling no back pain, CVA tenderness or radicular pain Patient has some bruises and scratches from falling no focal signs of weakness or numbness or altered sensation Patient has some confusion about the events that occurred yesterday prior to her admission Physical Exam Physical Exam: The patient appeared well nourished and normally developed. Vital signs as documented. Head exam is normocephalic atraumatic Neck is without JVD, thyromegaly, or carotid bruits. Lungs are clear to auscultation, no focal loss of breath sounds Cardiac exam, Rhythm is regular.. No murmurs, rubs or gallops. Abdominal exam reveals normal bowel sounds, soft non tender, no masses Extremities are nonedematous and both pedal pulses are present Neurologic exam is alert and oriented, no focal loss of strength or sensation Skin is with bruising to her left knee, some abrasions to her left arm Results & Data Results & Data Vital Signs (Past 12 Hours) Vital Signs Temp Pulse Resp BP Pulse Ox O2 Del Method 08/20/23 04:20 99.1 F 85 18 157/96 H 97 Room Air Laboratory Results Reviewed CBC Reviewed urine culture PG Care Time/CCT Total # of Minutes Spent Total Time Spent with Patient: Total time spent is greater than 50% in coordination of care (as documented) at patient's floor/unit and/or counseling patient: Coding Level of Care Code 50206 IN/OBS CONSULT LVL 3,45M Diagnoses Diabetes mellitus type 2, uncontrolled E11.65 Hypertension I10 Acute UTI (urinary tract infection) N39.0 Paranoid schizophrenia F20.0
[2023-08-20] MEDS ORDERED: NON-FORMULARY MEDICATION (Omeprazole 40 mg capsule,delayed release(DR/EC)) PO SCH (21:00)
[2023-08-20] MEDS ORDERED: ATORVASTATIN 40 MG TAB PO SCH (21:00)
[2023-08-20] MEDS: ATORVASTATIN 40 MG TAB PO SCH (21:17)
[2023-08-20] MEDS: ASPIRIN 81 MG CHEW PO SCH (21:17)
[2023-08-20] MEDS: CEFDINIR 300 MG CAP PO SCH (21:19)
[2023-08-20] MEDS: PANTOprazole 40 MG TAB PO SCH (21:21)
[2023-08-20] MEDS: ARIPiprazole 5 MG TAB PO SCH (21:22)
--- NOTE | 2023-08-21 07:47 | Hospitalist Progress Note ---
Date of Service August 21, 2023 Assessment & Plan (1) Acute UTI (urinary tract infection): Plan: Patient has Klebsiella urinary tract infection present on admission complete 5 days of cefdinirlast dose 08/25/2023 (2) Diabetes mellitus type 2, uncontrolled: Plan: Patient continues on home medications which metformin, (3) Hypertension: Plan: Continues on metoprolol and losartan, blood pressure remains controlled Is in mild ALBA on CKD 3 we will evaluate once she is hydrated and watch her labs rechecking labs in 48 hours (4) Paranoid schizophrenia: Plan: Patient is admitted manage to the behavioral health unit Admission and Anticipated Discharge Date Admission Date: August 20, 2023 Subjective Patient states she has headache but this is her chronic daily headache. She has improvement in her dysuria and urinary urgency. She has no other physical complaints on 08/21/2023 Physical Exam Physical Exam: She is awake and alert she has no focal deficits She does not have pressured speech in fact she appears slightly lethargic today Card exam is regular lungs are clear Results & Data Results & Data Vital Signs (Past 12 Hours) Vital Signs Temp Pulse Resp BP 08/21/23 06:34 70 114/74 08/21/23 06:34 98.8 F 61 16 132/80 PG Care Time/CCT Total # of Minutes Spent Total Time Spent with Patient: Total time spent is greater than 50% in coordination of care (as documented) at patient's floor/unit and/or counseling patient: Coding Level of Care Code 09893 SUB INP/OBS CARE 2/35MIN Diagnoses Acute UTI (urinary tract infection) N39.0 Diabetes mellitus type 2, uncontrolled E11.65 Hypertension I10 Paranoid schizophrenia F20.0
--- NOTE | 2023-08-21 11:29 | Psychiatric Progress Note ---
Date of Service August 21, 2023 Impression / Recommendations Impression JAE HUERTA is a 63-year-old F who currently lives in alone, has a history of psychosis, and was admitted on 08/20/23 01:01 on a 302 involuntary commitment for psychosis and acting on delusional thoughts. 08/21/23: Patient is receiving appropriate hydration and presents an improvement in her and her mental status. She appears less confused today and is more oriented. She continues to present persecutory delusions regarding her neighbors. Overnight staff noted she was responding to internal stimuli. She reports having broken appliances at home and limited outpatient support; we discussed opportunities for her to receive more help post discharge. We discussed medication side effects and she was agreeable to continue her scheduled antipsychotic Abilify. (1) Psychosis: (2) UTI (urinary tract infection): (3) Diabetes mellitus type 2, uncontrolled: (4) Hyperlipidemia: (5) Hypertension: (6) Coronary artery disease: Plan 08/21/2023: Continue home Cymbalta Buspar Wellbutrin. Continue Abilify 5 mg at bedtime. Encourage fluid intake. Working with social work to provide appropriate outpatient resources post discharge. BG checks daily. Suicide Risk Level Suicide Risk Level: Moderate (q15 min suicide checks) Risk Factors Assessment Do You Have Access To A Gun?: No Protective Factors Assessment Employed: No Interval History Identifying Information JAE HUERTA is a 63-year-old F who currently lives in alone, has a history of psychosis, and was admitted on 08/20/23 01:01 on a 302 involuntary commitment for psychosis and acting on delusional thoughts. Chief Complaint "I have a headache". Review of Systems Sleep Information Total Hours of Sleep: 7.25 Meal Information Percent Meal Consumed - Breakfast: 100 Percent Meal Consumed - Lunch: 100 Percent Meal Consumed - Dinner: 0 Nutrition Comment: sleeping Subjective Subjective Patient was seen & assessed and interval progress reviewed with treatment team nursing and social work Overnight no acute events. was seen by hospitalist and concern for acute kidney injury and will reevaluate once hydrated. Patient complains of a headache. She reports having a headache in the past due to Abilify. When discussing the timeline of the headache she reports the headache started before her first Abilify dose last night. She is agreeable to continuing Abilify and seeing if headache will improve. She feels safe and denies any auditory or visual hallucinations. She presents complaints about her neighbors and then try to take advantage of her. She reports not having a refrigerator in her home because it stopped working. Says her washing machine is broken. Reports being unable to get to the laundromat as it can be a lot of work. Reports she is still driving. When asked about what foods she eats at home she reports eating Ramen and at times completes her meal eats it late or does not eat at all. When asked about Case management she reports not getting along with her as the bilingual case manager would often make remarks she did not appreciate and she spoke to the coin wrapping machine operator's boss requesting her to stop coming. She is open to discussing getting a new bilingual case manager. Physical Exam Mental Examination Appearance: Unkempt and Disheveled Eye Contact: Maintains Eye Contact Motor Behavior: Unremarkable Speech: Normal and Circumstantial Mood: Euthymic and Happy Affect: Congruent Thought Process: Intact and Circumstantial Thought Content: Circumstantial (persecutory delusions of neighbors) Hallucinations: None Insight: Poor Judgement: Poor Vital Signs (Past 24 Hours) Last Vital Signs Temp 37.1 C 08/21/23 06:34 Pulse 70 08/21/23 06:34 Resp 16 08/21/23 06:34 BP 114/74 08/21/23 06:34 Pulse Ox 97 08/20/23 04:20 O2 Del Method Room Air 08/20/23 04:20 Results & Data ([facility]) Current Inpatient Medications Current Inpatient Medications: Current Inpatient Medications Acetaminophen (Acetaminophen 325 Mg Tab) 650 mg PO Q4H PRN PRN Reason: Headache or Minor Fever Stop: 09/19/23 02:53 Last Admin: 08/21/23 07:49 Dose: 650 mg Al Hydrox/Mg Hydrox/Simethicone (Aluminum/Magnesium Susp 30 Ml Udc) 30 ml PO Q4H PRN PRN Reason: GI Upset Stop: 09/19/23 02:53 Last Admin: 08/20/23 16:00 Dose: 30 ml Amlodipine Besylate (Amlodipine Besylate 5 Mg Tab) 5 mg PO BID [facility] Stop: 09/19/23 08:59 Last Admin: 08/21/23 07:50 Dose: 5 mg Aripiprazole (Aripiprazole 5 Mg Tab) 5 mg PO HS [facility] Stop: 09/19/23 21:59 Last Admin: 08/20/23 21:22 Dose: 5 mg Aspirin (Aspirin 81 Mg Chew) 81 mg PO QPM [facility] Stop: 09/19/23 20:59 Last Admin: 08/20/23 21:17 Dose: 81 mg Atorvastatin Calcium (Atorvastatin 40 Mg Tab) 80 mg PO QPM [facility] Stop: 09/19/23 20:59 Last Admin: 08/20/23 21:17 Dose: 80 mg Bismuth Subsalicylate (Bismuth Subsalicylate Liqd 236 Ml) 15 ml PO PRN PRN PRN Reason: Loose Stool Stop: 09/19/23 02:53 Bupropion HCl (Bupropion Xl 300 Mg Tabcr) 300 mg PO [facility] Stop: 09/19/23 08:59 Last Admin: 08/21/23 07:51 Dose: 300 mg Buspirone HCl (Buspirone 5 Mg Tab) 5 mg PO BID [facility] Stop: 09/19/23 08:59 Last Admin: 08/21/23 07:51 Dose: 5 mg Cefdinir (Cefdinir 300 Mg Cap) 300 mg PO BID [facility]; Protocol Stop: 08/25/23 20:59 Last Admin: 08/21/23 07:52 Dose: 300 mg Clopidogrel Bisulfate (Clopidogrel Bisulfate 75 Mg Tab) 75 mg PO [facility] Stop: 09/19/23 08:59 Last Admin: 08/21/23 07:52 Dose: 75 mg Duloxetine HCl (Duloxetine Hcl 30 Mg Cap) 90 mg PO [facility] Stop: 09/19/23 08:59 Last Admin: 08/21/23 07:53 Dose: 90 mg Hydroxyzine HCl (Hydroxyzine Hcl 25 Mg Tab) 25 mg PO HSZ PRN PRN Reason: Insomnia Stop: 09/19/23 02:53 Hydroxyzine HCl (Hydroxyzine Hcl 25 Mg Tab) 25 mg PO Q4H PRN PRN Reason: Anxiety Stop: 09/19/23 02:53 Magnesium Hydroxide (Magnesium Hydroxide Susp 30 Ml Udc) 30 ml PO DAILY PRN PRN Reason: Constipation Stop: 09/19/23 02:53 Metformin HCl (Metformin Hcl 500 Mg Tab) [facility] [place] Stop: 09/19/23 08:59 Last Admin: 08/21/23 07:55 Dose: 1,000 mg Metoprolol Tartrate (Metoprolol Tartrate 50 Mg Tab) 50 mg PO BID [facility] Stop: 09/19/23 08:59 Last Admin: 08/21/23 07:54 Dose: 50 mg Miscellaneous (Remove Nicoderm Patch) 1 each N/A DAILY@0859 [facility] Stop: 09/19/23 08:58 Last Admin: 08/21/23 07:50 Dose: Not Given Nicotine (Nicotine 7 Mg/24 Hr Tdsy) 1 patch TD QAM [facility] Stop: 09/19/23 08:59 Last Admin: 08/21/23 07:56 Dose: Not Given Pantoprazole Sodium (Pantoprazole 40 Mg Tab) 40 mg PO HS [facility] Stop: 09/19/23 21:59 Last Admin: 08/20/23 21:21 Dose: 40 mg Sodium Chloride (Sodium Chloride 0.65% Na Soln 45 Ml ([place])) 1 - 2 sprays NA PRN PRN PRN Reason: Nasal Dryness/Congestion Stop: 09/19/23 02:53 Valsartan (Valsartan 80 Mg Tab) 40 mg PO BID [facility] Stop: 09/19/23 08:59 Last Admin: 08/21/23 07:57 Dose: 40 mg Mental Health & Subst Abuse Tx Therapist Name of Therapist: N/A Stave Jointer Name of Stave Jointer: N/A (1) Psychosis Psychosis type: other Qualified Code(s): F28 - Other psychotic disorder not due to a substance or known physiological condition
[2023-08-21] MEDS: IBUPROFEN 200 MG TAB PO PRN (19:57)
[2023-08-22 09:15] LABS: Anion Gap 8 (3-11); BUN Creatinine Ratio 17.6 (10-20); Blood Urea Nitrogen 21 mg/dl (6-23); Calcium 9.5 mg/dl (8.6-10.3); Carbon Dioxide 25 mmol/L (21-32); Chloride 108 mmol/L (98-107); Est GFR (African American) 55.5 ml/min; Est GFR (Non-African American) 47.9 ml/min; Glucose 98 mg/dl (70-99(Fasting)); Potassium 3.7 mmol/L (3.5-5.1); Sodium 141 mmol/L (136-145)
[2023-08-22] MEDS ORDERED: bisacodyL 5 MG TABEC PO PRN (09:49)
[2023-08-22] MEDS: LIDOCAINE 5% 1 PATCH TD SCH (10:42)
[2023-08-22] MEDS: DOCUSATE SODIUM 100 MG CAP PO SCH (10:42)
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
[2023-08-23] MEDS: hydrOXYzine HCl 25 MG TAB PO PRN (02:31)
[2023-08-23] MEDS: MAGNESIUM HYDROXIDE SUSP 30 ML UDC PO PRN (06:44)
[2023-08-23] MEDS: buPROPion XL 150 MG TABCR PO SCH (09:07)
[2023-08-23] MEDS: ARIPiprazole 5 MG TAB PO SCH (09:07)
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
[2023-08-23 16:18] LABS: MDA negative; MDEA negative; MDMA (Ecstasy) Urine, Confirm negative
[2023-08-23] MEDS: busPIRone 5 MG TAB PO SCH (21:22)
[2023-08-23] MEDS: risperiDONE 1 MG TABLET PO SCH (21:23)
--- NOTE | 2023-08-24 07:19 | Communication Note ---
Date of Service: August 24, 2023 pts medical problems are stable hospital medicine will sign off, complete antibiotics for 5 days for uti bp is stable on current regimen, continue please contact me is you need further assistance
[2023-08-24 07:34] LABS: Chol HDL Ratio 3.4 (0-5)
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
[2023-08-24] MEDS: risperiDONE 0.25 MG TAB PO PRN (14:30)
[2023-08-25 07:28] LABS: Estimated Average Glucose 123 mg/dl; Hemoglobin A1C 5.9 % (4.5-5.6)
[2023-08-25] MEDS: risperiDONE 0.5 MG TABLET PO SCH (07:59)
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
[2023-08-25] MEDS ORDERED: DOCUSATE SODIUM 100 MG CAP PO PRN (12:42)
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
[2023-08-26] MEDS: OLANZapine 5 MG TABLET PO SCH (22:12)
--- NOTE | 2023-08-27 09:00 | Psychiatric Progress Note ---
Date of Service August 27, 2023 Impression / Recommendations Impression JAE HUERTA is a 63-year-old woman with a history of psychosis admitted initially on a 302 involuntary commitment, now converted to voluntary status, for psychosis and acting on delusional thoughts. Differential includes schizophrenia vs post-TBI induced psychosis vs delusional disorder vs mood disorder such as gi. 08/27/23: Fewer overt delusions today but having dizziness and nausea this afternoon. Possibly due to Vistaril versus side effect from buspirone. Given ongoing expansive speech pattern and flight of ideas will decrease duloxetine. Continue with olanzapine. MNPR due to acute psychosis and delusions that involve peers. Overall, I spent a total of 28 minutes on this case including meeting with the patient, reviewing the chart, nursing report, multidisciplinary team meeting, orders, and documentation. (1) Psychosis: (2) Diabetes mellitus type 2, uncontrolled: (3) Hyperlipidemia: (4) Hypertension: (5) Coronary artery disease: Plan 08/27/2023: -Continue olanzapine -Decrease Cymbalta to 60mg daily -EKG given her report of history of cardiac event with atypical symptoms 08/26/2023: -Discontinue risperidone -Start olanzapine 5mg HS 08/25/2023: Continue current medications and tx plan. Change colace to prn given loose stool this AM. 08/24/2023: Increase risperidone to 0.5mg qAM & 1 mg HS. May need to consider tapering Cymbalta but will hold off for now. Elopement precautions. 08/23/2023: -Discontinue abilify -Start risperidone 1mg HS -Increase buspar to 10mg BID -Discontinue Wellbutrin -Continue Cymbalta -Fasting lipid panel in AM 08/22/2023: Continue home Cymbalta Buspar Wellbutrin. Increase Abilify to 5mg QAM and 5mg HS. Decrease Wellbutrin to 150mg QD. Encourage fluid intake. Working with social work to provide appropriate outpatient resources post discharge. Colace 100mg BID started. Lidocaine patch 5% QD for low back pain started. Ibuprofen 200mg Q8hr PRN for pain started. 08/21/2023: Continue home Cymbalta Buspar Wellbutrin. Continue Abilify 5 mg at bedtime. Encourage fluid intake. Working with social work to provide appropriate outpatient resources post discharge. BG checks daily. Inventory Assets Strengths: housing, trusts PCP Needs: additional services, medication management, psychiatric follow-up Suicide Risk Level Suicide Risk Level: Moderate (q15 min suicide checks) (denies SI but with ongoing psychosis) Risk Factors Assessment : Yes Do You Have Access To A Gun?: No Mental Health Diagnoses: Yes Previous Psychiatric Hospitalization: Yes Protective Factors Assessment Employed: No Stable Relationships: Yes Good Rapport with Provider: Yes (PCP) Interval History Identifying Information JAE HUERTA is a 63-year-old F who currently lives in alone, has a history of psychosis, and was admitted on 08/20/23 01:01 on a 302 involuntary commitment for psychosis and acting on delusional thoughts. Chief Complaint "I liked those small orange pills from before". Review of Systems Sleep Information Total Hours of Sleep: 8 Sleep Comments: Scheduled Zyprexa and Buspar a HS Meal Information Percent Meal Consumed - Breakfast: 100 Percent Meal Consumed - Lunch: 100 Percent Meal Consumed - Dinner: 50 Nutrition Comment: sleeping Subjective Subjective Patient was seen & assessed and interval progress reviewed with treatment team nursing and social work. Increased anxiety mid-day and recieved Vistaril prn. After this having nausea and dizziness. Vital signs reviewed and stable. Tells me she had a stent in the past and never had typical chest pain. She is agreeable to EKG. Until mid-day no medication side effects today. Physical Exam Psychiatric Orientation: alert and oriented x 3 Eye Contact: good eye contact Motor Behavior: no abnormal motor movements Speech: + abnormal rate/rhythm/volume of speech (expansive) Affect: + constricted affect Mood: + anxious mood Thought Process: + tangential thought process and + confabulations (possibly) Thought Content: + paranoid, + delusions and + persecution Suicidal Thoughts: denies suicidal thoughts Homicidal Thoughts: denies homicidal thoughts Hallucinations: + auditory hallucinations (of neighbors communicating with her) Insight: + limited insight Judgment: + limited judgement Vital Signs (Past 24 Hours) Last Vital Signs Temp 35.6 C L 08/27/23 05:59 Pulse 78 08/27/23 06:01 Resp 16 08/27/23 05:59 BP 118/79 08/27/23 06:01 Pulse Ox 98 08/24/23 06:19 O2 Del Method Room Air 08/24/23 06:19 Results & Data ([facility]) Laboratory Results Laboratory Results - last 24 hr 08/27/23 05:52 POC Glucose 118 H Current Inpatient Medications Current Inpatient Medications: Current Inpatient Medications Acetaminophen (Acetaminophen 325 Mg Tab) 650 mg PO Q4H PRN PRN Reason: Headache or Minor Fever Stop: 09/19/23 02:53 Last Admin: 08/25/23 18:15 Dose: 650 mg Al Hydrox/Mg Hydrox/Simethicone (Aluminum/Magnesium Susp 30 Ml Udc) 30 ml PO Q4H PRN PRN Reason: GI Upset Stop: 09/19/23 02:53 Last Admin: 08/20/23 16:00 Dose: 30 ml Amlodipine Besylate (Amlodipine Besylate 5 Mg Tab) 5 mg PO BID [facility] Stop: 09/19/23 08:59 Last Admin: 08/26/23 21:45 Dose: 5 mg Aspirin (Aspirin 81 Mg Chew) 81 mg PO QPM [facility] Stop: 09/19/23 20:59 Last Admin: 08/26/23 21:45 Dose: 81 mg Atorvastatin Calcium (Atorvastatin 40 Mg Tab) 80 mg PO QPM [facility] Stop: 09/19/23 20:59 Last Admin: 08/26/23 21:45 Dose: 80 mg Bisacodyl (Bisacodyl 5 Mg Tabec) 5 mg PO DAILY PRN PRN Reason: Constipation Stop: 09/21/23 09:48 Bismuth Subsalicylate (Bismuth Subsalicylate Liqd 236 Ml) 15 ml PO PRN PRN PRN Reason: Loose Stool Stop: 09/19/23 02:53 Buspirone HCl (Buspirone 5 Mg Tab) 10 mg PO BID [facility] Stop: 09/22/23 20:59 Last Admin: 08/26/23 21:45 Dose: 10 mg Clopidogrel Bisulfate (Clopidogrel Bisulfate 75 Mg Tab) 75 mg PO QAM [facility] Stop: 09/19/23 08:59 Last Admin: 08/26/23 09:17 Dose: 75 mg Docusate Sodium (Docusate Sodium 100 Mg Cap) 100 mg PO BID PRN PRN Reason: Constipation Stop: 09/24/23 20:59 Duloxetine HCl (Duloxetine Hcl 30 Mg Cap) 90 mg PO QAM [facility] Stop: 09/19/23 08:59 Last Admin: 08/26/23 09:17 Dose: 90 mg Hydroxyzine HCl (Hydroxyzine Hcl 25 Mg Tab) 25 mg PO HSZ PRN PRN Reason: Insomnia Stop: 09/19/23 02:53 Last Admin: 08/23/23 21:50 Dose: 25 mg Hydroxyzine HCl (Hydroxyzine Hcl 25 Mg Tab) 25 mg PO Q4H PRN PRN Reason: Anxiety Stop: 09/19/23 02:53 Ibuprofen (Ibuprofen 200 Mg Tab) 200 mg PO Q8H PRN PRN Reason: Pain or Fever Stop: 09/20/23 19:35 Last Admin: 08/26/23 12:37 Dose: 200 mg Lidocaine (Lidocaine 5% 1 Patch) 1 patch TD [facility] Stop: 09/21/23 09:59 Last Admin: 08/26/23 09:21 Dose: 1 patch Magnesium Hydroxide (Magnesium Hydroxide Susp 30 Ml Udc) 30 ml PO DAILY PRN PRN Reason: Constipation Stop: 09/19/23 02:53 Last Admin: 08/24/23 19:45 Dose: 30 ml Metformin HCl (Metformin Hcl 500 Mg Tab) 1,000 mg PO BIDM [facility] Stop: 09/19/23 08:59 Last Admin: 08/26/23 17:24 Dose: 1,000 mg Metoprolol Tartrate (Metoprolol Tartrate 50 Mg Tab) 50 mg PO BID [facility] Stop: 09/19/23 08:59 Last Admin: 08/26/23 21:45 Dose: 50 mg Miscellaneous (Remove Nicoderm Patch) 1 each N/A DAILY@0859 [facility] Stop: 09/19/23 08:58 Last Admin: 08/26/23 09:31 Dose: Not Given Miscellaneous (Remove Lidoderm Patch) 1 each N/A DAILY@2100 [facility] Stop: 09/21/23 20:59 Last Admin: 08/26/23 21:45 Dose: 1 each Nicotine (Nicotine 7 Mg/24 Hr Tdsy) 1 patch TD QAM [facility] Stop: 09/19/23 08:59 Last Admin: 08/26/23 09:30 Dose: Not Given Nicotine Polacrilex (Nicotine Polacrilex 2 Mg Gum) 1 piece MT PRN PRN PRN Reason: nicotine cravings Stop: 09/24/23 12:40 Olanzapine (Olanzapine 5 Mg Tablet) 5 mg PO HS [facility] Stop: 09/25/23 21:59 Last Admin: 08/26/23 22:12 Dose: 5 mg Pantoprazole Sodium (Pantoprazole 40 Mg Tab) 40 mg PO HS [facility] Stop: 09/19/23 21:59 Last Admin: 08/26/23 22:11 Dose: 40 mg Risperidone (Risperidone 0.25 Mg Tab) 0.5 mg PO BID PRN PRN Reason: paranoia/agitation Stop: 09/22/23 12:18 Last Admin: 08/24/23 14:30 Dose: 0.5 mg Sodium Chloride (Sodium Chloride 0.65% Na Soln 45 Ml ([place])) 1 - 2 sprays NA PRN PRN PRN Reason: Nasal Dryness/Congestion Stop: 09/19/23 02:53 Valsartan (Valsartan 80 Mg Tab) 40 mg PO BID [facility] Stop: 09/19/23 08:59 Last Admin: 08/26/23 22:13 Dose: 40 mg Mental Health & Subst Abuse Tx Therapist Name of Therapist: N/A Cake Press Operator Name of Cake Press Operator: N/A (1) Psychosis Psychosis type: other Qualified Code(s): F28 - Other psychotic disorder not due to a substance or known physiological condition
[2023-08-27] MEDS: hydrOXYzine HCl 25 MG TAB PO PRN (12:09)
[2023-08-27] MEDS: NICOTINE POLACRILEX 2 MG GUM MT PRN (23:46)
--- NOTE | 2023-08-28 08:03 | Electrocardiogram Report ---
Test Reason : Blood Pressure : / mmHG Vent. Rate : 068 BPM Atrial Rate : 068 BPM P-R Int : 178 ms QRS Dur : 100 ms QT Int : 394 ms P-R-T Axes : 040 -34 049 degrees QTc Int : 418 ms Normal sinus rhythm Left axis deviation Minimal voltage criteria for LVH, may be normal variant Poor R wave progression, consider anterior ID vs. lead placement vs. LVH Abnormal ECG When compared with ECG of 19-AUG-2023 14:13, No significant change was found Confirmed by Nabeel Corbett ([id number]) on 08/28/2023 8:02:44 AM Referred By: Viktor Orozco Confirmed By:Gordon Corbett
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
[2023-08-28] MEDS: DULoxetine HCL 60 MG CAP PO SCH (09:17)
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
[2023-08-29] MEDS ORDERED: OLANZAPINE 2.5 MG TAB PO PRN (17:56)
[2023-08-29] MEDS: OLANZAPINE 2.5 MG TAB PO SCH (21:58)
--- NOTE | 2023-08-30 15:13 | Psychiatric Progress Note ---
Date of Service August 30, 2023 Impression / Recommendations Impression JAE HUERTA is a 63-year-old woman with a history of psychosis admitted initially on a 302 involuntary commitment, now converted to voluntary status, for psychosis and acting on delusional thoughts. Differential includes schizophrenia vs post-TBI induced psychosis vs delusional disorder vs mood disorder such as gi. 08/29/23: Ongoing persecutory delusions and paranoia, able to reality-test at times but struggles to do this with any consistency. Continues to be very tangential. Ongoing concerns about deplorable state of her home with no water or sewage which seems to have lead her to restrict her intake to avoid having bowel movements. Tolerating taper of duloxetine given concerns for possible gi component. 08/30/23 Patient says she is doing well. We will continue to observe and titrate the medications as required. Overall, I spent a total of 50 minutes on this case including meeting with the patient, reviewing the chart, nursing report, multidisciplinary team meeting, orders, gathering collateral information and documentation. Inventory Assets Strengths: housing, trusts PCP Needs: additional services, medication management, psychiatric follow-up Suicide Risk Level Suicide Risk Level: Moderate (q15 min suicide checks) (denies SI but with ongoing psychosis) Risk Factors Assessment : Yes Do You Have Access To A Gun?: No Mental Health Diagnoses: Yes Previous Psychiatric Hospitalization: Yes Protective Factors Assessment Employed: No Stable Relationships: Yes Good Rapport with Provider: Yes (PCP) Interval History Identifying Information JAE HUERTA is a 63-year-old F who currently lives in alone, has a history of psychosis, and was admitted on 08/20/23 01:01 on a 302 involuntary commitment for psychosis and acting on delusional thoughts. Chief Complaint "I like the risperidone". Review of Systems Sleep Information Total Hours of Sleep: 5.5 Sleep Comments: Scheduled Zyprexa and Buspar a HS Meal Information Percent Meal Consumed - Breakfast: 100 Percent Meal Consumed - Lunch: 100 Percent Meal Consumed - Dinner: 100 Nutrition Comment: sleeping Subjective Subjective Patient was seen & assessed and interval progress reviewed with treatment team, nursing and social work. She was in good spirits and states that she is pleased with the medication changes so far. Physical Exam Psychiatric Orientation: alert and oriented x 3 Eye Contact: good eye contact Motor Behavior: no abnormal motor movements Speech: + abnormal rate/rhythm/volume of speech (expansive) Affect: + constricted affect Mood: + anxious mood Thought Process: + circumstantial thought process, + tangential thought process and + confabulations (possibly) Thought Content: + paranoid, + delusions and + persecution Suicidal Thoughts: denies suicidal thoughts Homicidal Thoughts: denies homicidal thoughts Hallucinations: + auditory hallucinations (of neighbors communicating with her) Insight: + limited insight Judgment: + limited judgement Vital Signs (Past 24 Hours) Last Vital Signs Temp 36.4 C L 08/30/23 06:32 Pulse 76 08/30/23 06:33 Resp 16 08/30/23 06:32 BP 127/80 08/30/23 06:33 Pulse Ox 96 08/27/23 15:46 O2 Del Method Room Air 08/27/23 15:46 Results & Data (U) Laboratory Results Laboratory Results - last 24 hr 08/30/23 07:37 POC Glucose 143 H Current Inpatient Medications Current Inpatient Medications: Current Inpatient Medications Acetaminophen (Acetaminophen 325 Mg Tab) 650 mg PO Q4H PRN PRN Reason: Headache or Minor Fever Stop: 09/19/23 02:53 Last Admin: 08/30/23 14:56 Dose: 650 mg Al Hydrox/Mg Hydrox/Simethicone (Aluminum/Magnesium Susp 30 Ml Udc) 30 ml PO Q4H PRN PRN Reason: GI Upset Stop: 09/19/23 02:53 Last Admin: 08/20/23 16:00 Dose: 30 ml Amlodipine Besylate (Amlodipine Besylate 5 Mg Tab) 5 mg PO BID [facility] Stop: 09/19/23 08:59 Last Admin: 08/30/23 08:56 Dose: 5 mg Aspirin (Aspirin 81 Mg Chew) 81 mg PO QPM [facility] Stop: 09/19/23 20:59 Last Admin: 08/29/23 21:55 Dose: 81 mg Atorvastatin Calcium (Atorvastatin 40 Mg Tab) 80 mg PO QPM [facility] Stop: 09/19/23 20:59 Last Admin: 08/29/23 21:57 Dose: 80 mg Bisacodyl (Bisacodyl 5 Mg Tabec) 5 mg PO DAILY PRN PRN Reason: Constipation Stop: 09/21/23 09:48 Bismuth Subsalicylate (Bismuth Subsalicylate Liqd 236 Ml) 15 ml PO PRN PRN PRN Reason: Loose Stool Stop: 09/19/23 02:53 Buspirone HCl (Buspirone 5 Mg Tab) 10 mg PO BID [facility] Stop: 09/22/23 20:59 Last Admin: 08/30/23 08:56 Dose: 10 mg Clopidogrel Bisulfate (Clopidogrel Bisulfate 75 Mg Tab) [facility] Stop: 09/19/23 08:59 Last Admin: 08/30/23 08:55 Dose: 75 mg Docusate Sodium (Docusate Sodium 100 Mg Cap) 100 mg PO BID PRN PRN Reason: Constipation Stop: 09/24/23 20:59 Duloxetine HCl (Duloxetine Hcl 60 Mg Cap) 60 mg PO [facility] Stop: 09/27/23 08:59 Last Admin: 08/30/23 08:55 Dose: 60 mg Hydroxyzine HCl (Hydroxyzine Hcl 25 Mg Tab) 25 mg PO HSZ PRN PRN Reason: Insomnia Stop: 09/19/23 02:53 Last Admin: 08/29/23 00:10 Dose: 25 mg Hydroxyzine HCl (Hydroxyzine Hcl 25 Mg Tab) 25 mg PO Q4H PRN PRN Reason: Anxiety Stop: 09/19/23 02:53 Last Admin: 08/27/23 12:09 Dose: 25 mg Ibuprofen (Ibuprofen 200 Mg Tab) 200 mg PO Q8H PRN PRN Reason: Pain or Fever Stop: 09/20/23 19:35 Last Admin: 08/28/23 19:53 Dose: 200 mg Lidocaine (Lidocaine 5% 1 Patch) 1 patch TD [facility] Stop: 09/21/23 09:59 Last Admin: 08/30/23 08:52 Dose: 1 patch Magnesium Hydroxide (Magnesium Hydroxide Susp 30 Ml Udc) 30 ml PO DAILY PRN PRN Reason: Constipation Stop: 09/19/23 02:53 Last Admin: 08/24/23 19:45 Dose: 30 ml Metformin HCl (Metformin Hcl 500 Mg Tab) 1,[facility] Stop: 09/19/23 08:59 Last Admin: 08/30/23 08:57 Dose: 1,000 mg Metoprolol Tartrate (Metoprolol Tartrate 50 Mg Tab) 50 mg PO BID [facility] Stop: 09/19/23 08:59 Last Admin: 08/30/23 08:57 Dose: 50 mg Miscellaneous (Remove Nicoderm Patch) 1 each N/A DAILY@0859 [facility] Stop: 09/19/23 08:58 Last Admin: 08/30/23 09:01 Dose: Not Given Miscellaneous (Remove Lidoderm Patch) 1 each N/A DAILY@2100 [facility] Stop: 09/21/23 20:59 Last Admin: 08/29/23 21:58 Dose: 1 each Nicotine (Nicotine 7 Mg/24 Hr Tdsy) 1 patch TD QAM [facility] Stop: 09/19/23 08:59 Last Admin: 08/30/23 09:00 Dose: Not Given Nicotine Polacrilex (Nicotine Polacrilex 2 Mg Gum) 1 piece MT PRN PRN PRN Reason: nicotine cravings Stop: 09/24/23 12:40 Last Admin: 08/28/23 09:19 Dose: 1 piece Olanzapine (Olanzapine 2.5 Mg Tab) 7.5 mg PO HS [facility] Stop: 09/28/23 21:59 Last Admin: 08/29/23 21:58 Dose: 7.5 mg Olanzapine (Olanzapine 2.5 Mg Tab) 2.5 mg PO BID PRN PRN Reason: Paranoia/Agitation Stop: 09/28/23 20:59 Pantoprazole Sodium (Pantoprazole 40 Mg Tab) 40 mg PO HS [facility] Stop: 09/19/23 21:59 Last Admin: 08/29/23 21:58 Dose: 40 mg Risperidone (Risperidone 0.25 Mg Tab) 0.5 mg PO BID PRN PRN Reason: paranoia/agitation Stop: 09/22/23 12:18 Last Admin: 08/30/23 12:05 Dose: 0.5 mg Sodium Chloride (Sodium Chloride 0.65% Na Soln 45 Ml ([place])) 1 - 2 sprays NA PRN PRN PRN Reason: Nasal Dryness/Congestion Stop: 09/19/23 02:53 Valsartan (Valsartan 80 Mg Tab) 40 mg PO BID [facility] Stop: 09/19/23 08:59 Last Admin: 08/30/23 08:58 Dose: 40 mg Mental Health & Subst Abuse Tx Therapist Name of Therapist: N/A [employer]umping [employer] Supervisor Name of Gas Pumping Station Supervisor: N/A
--- NOTE | 2023-08-30 17:31 | Progress Note ---
<Statement entered by Misty Ayon, DO - 08/30/23 17:31> in error
--- NOTE | 2023-08-31 13:30 | Psychiatric Progress Note ---
Date of Service August 31, 2023 Impression / Recommendations Impression JAE HUERTA is a 63-year-old woman with a history of psychosis admitted initially on a 302 involuntary commitment, now converted to voluntary status, for psychosis and acting on delusional thoughts. Differential includes schizophrenia vs post-TBI induced psychosis vs delusional disorder vs mood disorder such as gi. 08/29/23: Ongoing persecutory delusions and paranoia, able to reality-test at times but struggles to do this with any consistency. Continues to be very tangential. Ongoing concerns about deplorable state of her home with no water or sewage which seems to have lead her to restrict her intake to avoid having bowel movements. Tolerating taper of duloxetine given concerns for possible gi component. 08/30/23 Patient says she is doing well. We will continue to observe and titrate the medications as required. 08/31/23 Patient continue to say she is doing well. She is perseverating on the Risperidone so I have stopped it. She is on a very low dose and it is likely the Zyprexa that is helping her. i (1) Psychosis: Continue treatment with Zyprexa (2) Diabetes mellitus type 2, uncontrolled: Continue current treatment. (3) Hyperlipidemia: Continue current treatment. (4) Hypertension: Continue current treatment. (5) Coronary artery disease: Continue current treatment. Plan 08/31/23: I have discontinued the Risperidone because I want her to be on only one anti psychotic. I will continue to taper the duloxetine tomorrow. 08/29/2023: -Increase olanzapine to 7.5mg HS -Olanzapine 2.5mg BID prn for paranoia/agitation and risperidone if she refuses olanzapine (she seems to have developed a new preference for this) -Continue to taper duloxetine as tolerated 08/28/2023: -Continue current medications and tx plan 08/27/2023: -Continue olanzapine -Decrease Cymbalta to 60mg daily -EKG given her report of history of cardiac event with atypical symptoms 08/26/2023: -Discontinue risperidone -Start olanzapine 5mg HS 08/25/2023: Continue current medications and tx plan. Change colace to prn given loose stool this AM. 08/24/2023: Increase risperidone to 0.5mg qAM & 1 mg HS. May need to consider tapering Cymbalta but will hold off for now. Elopement precautions. 08/23/2023: -Discontinue abilify -Start risperidone 1mg HS -Increase buspar to 10mg BID -Discontinue Wellbutrin -Continue Cymbalta -Fasting lipid panel in AM 08/22/2023: Continue home Cymbalta Buspar Wellbutrin. Increase Abilify to 5mg QAM and 5mg HS. Decrease Wellbutrin to 150mg QD. Encourage fluid intake. Working with social work to provide appropriate outpatient resources post discharge. Colace 100mg BID started. Lidocaine patch 5% QD for low back pain started. Ibuprofen 200mg Q8hr PRN for pain started. 08/21/2023: Continue home Cymbalta Buspar Wellbutrin. Continue Abilify 5 mg at bedtime. Encourage fluid intake. Working with social work to provide appropriate outpatient resources post discharge. BG checks daily. Inventory Assets Strengths: housing, trusts PCP Needs: additional services, medication management, psychiatric follow-up Suicide Risk Level Suicide Risk Level: Moderate (q15 min suicide checks) (denies SI but with ongoing psychosis) Risk Factors Assessment : Yes Do You Have Access To A Gun?: No Mental Health Diagnoses: Yes Previous Psychiatric Hospitalization: Yes Protective Factors Assessment Employed: No Stable Relationships: Yes Good Rapport with Provider: Yes (PCP) Interval History Identifying Information JAE HUERTA is a 63-year-old F who currently lives in alone, has a history of psychosis, and was admitted on 08/20/23 01:01 on a 302 involuntary commitment for psychosis and acting on delusional thoughts. Chief Complaint "I'm doing really well". Review of Systems Sleep Information Total Hours of Sleep: 6 Sleep Comments: Scheduled Zyprexa and Buspar a HS Meal Information Percent Meal Consumed - Breakfast: 100 Percent Meal Consumed - Lunch: 100 Percent Meal Consumed - Dinner: 100 Nutrition Comment: sleeping Subjective Subjective Patient was seen & assessed and interval progress reviewed with the treatment team, nursing and social work. She said that she is doing very well. She is a bit preoccupied with the Risperidone despite the fact that it at a very low dose and only a PRN medication. I discussed with her the likelihood that it is the Zyprexa that is really helping her and it would be better that she is only on one anti-psychotic medication so we will discontinue the Risperidone and possibly increase the Zyprexa. The patient stated that she was willing to do whatever is recommended. Physical Exam Mental Examination Appearance: Unkempt and Disheveled Eye Contact: Maintains Eye Contact Motor Behavior: Unremarkable Speech: Normal and Circumstantial Mood: Euthymic and Happy Affect: Congruent Thought Process: Intact Thought Content: Circumstantial Hallucinations: None Insight: Fair Judgement: Fair Psychiatric Orientation: alert and oriented x 3 Eye Contact: good eye contact Motor Behavior: no abnormal motor movements Speech: normal rate/rhythm/volume of speech Affect: euthymic affect Thought Process: + circumstantial thought process Thought Content: + delusions Suicidal Thoughts: denies suicidal thoughts Homicidal Thoughts: denies homicidal thoughts Insight: + limited insight Judgment: + limited judgement Vital Signs (Past 24 Hours) Last Vital Signs Temp 36.5 C 08/31/23 06:34 Pulse 73 08/31/23 06:35 Resp 16 08/31/23 06:34 BP 128/82 08/31/23 06:35 Pulse Ox 96 08/27/23 15:46 O2 Del Method Room Air 08/27/23 15:46 Results & Data ([facility]) Laboratory Results Laboratory Results - last 24 hr 08/31/23 08:20 POC Glucose 144 H Current Inpatient Medications Current Inpatient Medications: Current Inpatient Medications Acetaminophen (Acetaminophen 325 Mg Tab) 650 mg PO Q4H PRN PRN Reason: Headache or Minor Fever Stop: 09/19/23 02:53 Last Admin: 08/31/23 10:54 Dose: 650 mg Al Hydrox/Mg Hydrox/Simethicone (Aluminum/Magnesium Susp 30 Ml Udc) 30 ml PO Q4H PRN PRN Reason: GI Upset Stop: 09/19/23 02:53 Last Admin: 08/20/23 16:00 Dose: 30 ml Amlodipine Besylate (Amlodipine Besylate 5 Mg Tab) 5 mg PO BID [facility] Stop: 09/19/23 08:59 Last Admin: 08/31/23 08:44 Dose: 5 mg Aspirin (Aspirin 81 Mg Chew) 81 mg PO QPM [facility] Stop: 09/19/23 20:59 Last Admin: 08/30/23 21:29 Dose: 81 mg Atorvastatin Calcium (Atorvastatin 40 Mg Tab) 80 mg PO QPM [facility] Stop: 09/19/23 20:59 Last Admin: 08/30/23 21:29 Dose: 80 mg Bisacodyl (Bisacodyl 5 Mg Tabec) 5 mg PO DAILY PRN PRN Reason: Constipation Stop: 09/21/23 09:48 Bismuth Subsalicylate (Bismuth Subsalicylate Liqd 236 Ml) 15 ml PO PRN PRN PRN Reason: Loose Stool Stop: 09/19/23 02:53 Buspirone HCl (Buspirone 5 Mg Tab) 10 mg PO BID [facility] Stop: 09/22/23 20:59 Last Admin: 08/31/23 08:43 Dose: 10 mg Clopidogrel Bisulfate (Clopidogrel Bisulfate 75 Mg Tab) [facility] Stop: 09/19/23 08:59 Last Admin: 08/31/23 08:43 Dose: 75 mg Docusate Sodium (Docusate Sodium 100 Mg Cap) 100 mg PO BID PRN PRN Reason: Constipation Stop: 09/24/23 20:59 Duloxetine HCl (Duloxetine Hcl 60 Mg Cap) 60 mg PO [facility] Stop: 09/27/23 08:59 Last Admin: 08/31/23 08:44 Dose: 60 mg Hydroxyzine HCl (Hydroxyzine Hcl 25 Mg Tab) 25 mg PO HSZ PRN PRN Reason: Insomnia Stop: 09/19/23 02:53 Last Admin: 08/29/23 00:10 Dose: 25 mg Hydroxyzine HCl (Hydroxyzine Hcl 25 Mg Tab) 25 mg PO Q4H PRN PRN Reason: Anxiety Stop: 09/19/23 02:53 Last Admin: 08/27/23 12:09 Dose: 25 mg Ibuprofen (Ibuprofen 200 Mg Tab) 200 mg PO Q8H PRN PRN Reason: Pain or Fever Stop: 09/20/23 19:35 Last Admin: 08/28/23 19:53 Dose: 200 mg Lidocaine (Lidocaine 5% 1 Patch) 1 patch TD [facility] Stop: 09/21/23 09:59 Last Admin: 08/31/23 08:44 Dose: 1 patch Magnesium Hydroxide (Magnesium Hydroxide Susp 30 Ml Udc) 30 ml PO DAILY PRN PRN Reason: Constipation Stop: 09/19/23 02:53 Last Admin: 08/24/23 19:45 Dose: 30 ml Metformin HCl (Metformin Hcl 500 Mg Tab) 1,[facility] Stop: 09/19/23 08:59 Last Admin: 08/31/23 08:44 Dose: 1,000 mg Metoprolol Tartrate (Metoprolol Tartrate 50 Mg Tab) 50 mg PO BID [facility] Stop: 09/19/23 08:59 Last Admin: 08/31/23 08:43 Dose: 50 mg Miscellaneous (Remove Nicoderm Patch) 1 each N/A DAILY@0859 [facility] Stop: 09/19/23 08:58 Last Admin: 08/31/23 08:45 Dose: Not Given Miscellaneous (Remove Lidoderm Patch) 1 each N/A DAILY@2100 [facility] Stop: 09/21/23 20:59 Last Admin: 08/30/23 21:30 Dose: 1 each Nicotine (Nicotine 7 Mg/24 Hr Tdsy) 1 patch TD QAM [facility] Stop: 09/19/23 08:59 Last Admin: 08/31/23 08:45 Dose: Not Given Nicotine Polacrilex (Nicotine Polacrilex 2 Mg Gum) 1 piece MT PRN PRN PRN Reason: nicotine cravings Stop: 09/24/23 12:40 Last Admin: 08/30/23 20:30 Dose: 1 piece Olanzapine (Olanzapine 2.5 Mg Tab) 7.5 mg PO HS [facility] Stop: 09/28/23 21:59 Last Admin: 08/30/23 21:27 Dose: 7.5 mg Olanzapine (Olanzapine 2.5 Mg Tab) 2.5 mg PO BID PRN PRN Reason: Paranoia/Agitation Stop: 09/28/23 20:59 Pantoprazole Sodium (Pantoprazole 40 Mg Tab) 40 mg PO HS [facility] Stop: 09/19/23 21:59 Last Admin: 08/30/23 21:30 Dose: 40 mg Sodium Chloride (Sodium Chloride 0.65% Na Soln 45 Ml ([place])) 1 - 2 sprays NA PRN PRN PRN Reason: Nasal Dryness/Congestion Stop: 09/19/23 02:53 Valsartan (Valsartan 80 Mg Tab) 40 mg PO BID [facility] Stop: 09/19/23 08:59 Last Admin: 08/31/23 08:43 Dose: 40 mg Mental Health & Subst Abuse Tx Therapist Name of Therapist: N/A Color Finisher Name of Color Finisher: N/A (1) Psychosis Psychosis type: other Qualified Code(s): F28 - Other psychotic disorder not due to a substance or known physiological condition
--- NOTE | 2023-09-01 12:59 | Electrocardiogram Report ---
Test Reason : Blood Pressure : / mmHG Vent. Rate : 067 BPM Atrial Rate : 067 BPM P-R Int : 178 ms QRS Dur : 088 ms QT Int : 392 ms P-R-T Axes : 060 -17 045 degrees QTc Int : 414 ms Normal sinus rhythm Poor R wave progression, consider anterior RI vs. lead placement vs. LVH Abnormal ECG When compared with ECG of 27-AUG-2023 16:29, No significant change was found Confirmed by Leobardo Hilliard ([id number]) on 09/01/2023 12:58:37 PM Referred By: Viktor Orozco Confirmed By:Leobardo Hilliard
--- NOTE | 2023-09-01 15:05 | Psychiatric Progress Note ---
Date of Service September 01, 2023 Impression / Recommendations Impression JAE HUERTA is a 63-year-old woman with a history of psychosis admitted initially on a 302 involuntary commitment, now converted to voluntary status, for psychosis and acting on delusional thoughts. Differential includes schizophrenia vs post-TBI induced psychosis vs delusional disorder vs mood disorder such as gi. 08/29/23: Ongoing persecutory delusions and paranoia, able to reality-test at times but struggles to do this with any consistency. Continues to be very tangential. Ongoing concerns about deplorable state of her home with no water or sewage which seems to have lead her to restrict her intake to avoid having bowel movements. Tolerating taper of duloxetine given concerns for possible gi component. 08/30/23 Patient says she is doing well. We will continue to observe and titrate the medications as required. 08/31/23 Patient continue to say she is doing well. She is perseverating on the Risperidone so I have stopped it. She is on a very low dose and it is likely the Zyprexa that is helping her. 09/01/23 Patient continues to be pleased with her treatment here. She is doing well on the Zyprexa. She says she particularly likes the Buspar. We decreased the dose of her cymbalta. (1) Psychosis: Continue treatment with Zyprexa (2) Diabetes mellitus type 2, uncontrolled: Continue current treatment. (3) Hyperlipidemia: Continue current treatment. (4) Hypertension: Continue current treatment. (5) Coronary artery disease: Continue current treatment. Plan 09/01/23: we continued the duloxetine taper today. 08/31/23: I have discontinued the Risperidone because I want her to be on only one anti psychotic. I will continue to taper the duloxetine tomorrow. 08/29/2023: -Increase olanzapine to 7.5mg HS -Olanzapine 2.5mg BID prn for paranoia/agitation and risperidone if she refuses olanzapine (she seems to have developed a new preference for this) -Continue to taper duloxetine as tolerated 08/28/2023: -Continue current medications and tx plan 08/27/2023: -Continue olanzapine -Decrease Cymbalta to 60mg daily -EKG given her report of history of cardiac event with atypical symptoms 08/26/2023: -Discontinue risperidone -Start olanzapine 5mg HS 08/25/2023: Continue current medications and tx plan. Change colace to prn given loose stool this AM. 08/24/2023: Increase risperidone to 0.5mg qAM & 1 mg HS. May need to consider tapering Cymbalta but will hold off for now. Elopement precautions. 08/23/2023: -Discontinue abilify -Start risperidone 1mg HS -Increase buspar to 10mg BID -Discontinue Wellbutrin -Continue Cymbalta -Fasting lipid panel in AM 08/22/2023: Continue home Cymbalta Buspar Wellbutrin. Increase Abilify to 5mg QAM and 5mg HS. Decrease Wellbutrin to 150mg QD. Encourage fluid intake. Working with social work to provide appropriate outpatient resources post discharge. Colace 100mg BID started. Lidocaine patch 5% QD for low back pain started. Ibuprofen 200mg Q8hr PRN for pain started. 08/21/2023: Continue home Cymbalta Buspar Wellbutrin. Continue Abilify 5 mg at bedtime. Encourage fluid intake. Working with social work to provide appropriate outpatient resources post discharge. BG checks daily. Inventory Assets Strengths: housing, trusts PCP Needs: additional services, medication management, psychiatric follow-up Suicide Risk Level Suicide Risk Level: Moderate (q15 min suicide checks) (denies SI but with ongoing psychosis) Risk Factors Assessment : Yes Do You Have Access To A Gun?: No Mental Health Diagnoses: Yes Previous Psychiatric Hospitalization: Yes Protective Factors Assessment Employed: No Stable Relationships: Yes Good Rapport with Provider: Yes (PCP) Interval History Identifying Information JAE HUERTA is a 63-year-old F who currently lives alone, has a history of psychosis, and was admitted on 08/20/23 01:01 on a 302 involuntary commitment for psychosis and acting on delusional thoughts. Chief Complaint "I'm so good". Review of Systems Sleep Information Total Hours of Sleep: 6 Sleep Comments: Scheduled Zyprexa and Buspar a HS Meal Information Percent Meal Consumed - Breakfast: 100 Percent Meal Consumed - Lunch: 100 Percent Meal Consumed - Dinner: 100 Nutrition Comment: sleeping Subjective Subjective Patient was seen & assessed and interval progress reviewed with the treatment team, nursing and social work. She continues to do very well. We again discussed the importance of her being on only one anti-psychotic medication and the Zyprexa seems to be really helping her. She has been cooperative and pleasant in the milieu. We discussed decreasing her anti depressant again because it was started being down titrated previously. She agreed that we should decrease the dose again. Physical Exam Mental Examination Appearance: Well Groomed Eye Contact: Maintains Eye Contact Motor Behavior: Unremarkable Speech: Normal and Circumstantial Mood: Euthymic and Happy Affect: Congruent Thought Process: Intact Thought Content: Circumstantial Hallucinations: None Insight: Fair Judgement: Fair Psychiatric Orientation: alert and oriented x 3 Eye Contact: good eye contact Motor Behavior: no abnormal motor movements Speech: normal rate/rhythm/volume of speech Affect: euthymic affect and + constricted affect Mood: no depressed mood, no anxious mood, no irritable mood, no dysphoric mood and no angry mood Thought Process: goal directed thought process and + tangential thought process Thought Content: no delusions and no worthlessness Suicidal Thoughts: denies suicidal thoughts Homicidal Thoughts: denies homicidal thoughts Hallucinations: no auditory hallucinations Insight: + limited insight Judgment: + limited judgement Vital Signs (Past 24 Hours) Last Vital Signs Temp 36.5 C 09/01/23 06:36 Pulse 87 09/01/23 06:37 Resp 16 09/01/23 06:36 BP 148/90 H 09/01/23 06:37 Pulse Ox 96 08/27/23 15:46 O2 Del Method Room Air 08/27/23 15:46 Results & Data ([facility]) Laboratory Results Laboratory Results - last 24 hr 09/01/23 07:22 POC Glucose 134 H Current Inpatient Medications Current Inpatient Medications: Current Inpatient Medications Acetaminophen (Acetaminophen 325 Mg Tab) 650 mg PO Q4H PRN PRN Reason: Headache or Minor Fever Stop: 09/19/23 02:53 Last Admin: 09/01/23 11:11 Dose: 650 mg Al Hydrox/Mg Hydrox/Simethicone (Aluminum/Magnesium Susp 30 Ml Udc) 30 ml PO Q4H PRN PRN Reason: GI Upset Stop: 09/19/23 02:53 Last Admin: 08/20/23 16:00 Dose: 30 ml Amlodipine Besylate (Amlodipine Besylate 5 Mg Tab) 5 mg PO BID [facility] Stop: 09/19/23 08:59 Last Admin: 09/01/23 07:59 Dose: 5 mg Aspirin (Aspirin 81 Mg Chew) 81 mg PO QPM [facility] Stop: 09/19/23 20:59 Last Admin: 08/31/23 21:23 Dose: 81 mg Atorvastatin Calcium (Atorvastatin 40 Mg Tab) 80 mg PO QPM [facility] Stop: 09/19/23 20:59 Last Admin: 08/31/23 21:26 Dose: 80 mg Bisacodyl (Bisacodyl 5 Mg Tabec) 5 mg PO DAILY PRN PRN Reason: Constipation Stop: 09/21/23 09:48 Bismuth Subsalicylate (Bismuth Subsalicylate Liqd 236 Ml) 15 ml PO PRN PRN PRN Reason: Loose Stool Stop: 09/19/23 02:53 Buspirone HCl (Buspirone 5 Mg Tab) 10 mg PO BID [facility] Stop: 09/22/23 20:59 Last Admin: 09/01/23 08:00 Dose: 10 mg Clopidogrel Bisulfate (Clopidogrel Bisulfate 75 Mg Tab) 75 mg PO [facility] Stop: 09/19/23 08:59 Last Admin: 09/01/23 08:01 Dose: 75 mg Docusate Sodium (Docusate Sodium 100 Mg Cap) 100 mg PO BID PRN PRN Reason: Constipation Stop: 09/24/23 20:59 Duloxetine HCl (Duloxetine Hcl 30 Mg Cap) 30 mg PO [facility] Stop: 10/02/23 08:59 Hydroxyzine HCl (Hydroxyzine Hcl 25 Mg Tab) 25 mg PO HSZ PRN PRN Reason: Insomnia Stop: 09/19/23 02:53 Last Admin: 08/29/23 00:10 Dose: 25 mg Hydroxyzine HCl (Hydroxyzine Hcl 25 Mg Tab) 25 mg PO Q4H PRN PRN Reason: Anxiety Stop: 09/19/23 02:53 Last Admin: 08/31/23 20:24 Dose: 25 mg Ibuprofen (Ibuprofen 200 Mg Tab) 200 mg PO Q8H PRN PRN Reason: Pain or Fever Stop: 09/20/23 19:35 Last Admin: 08/31/23 21:40 Dose: 200 mg Lidocaine (Lidocaine 5% 1 Patch) 1 patch TD [facility] Stop: 09/21/23 09:59 Last Admin: 09/01/23 08:03 Dose: 1 patch Magnesium Hydroxide (Magnesium Hydroxide Susp 30 Ml Udc) 30 ml PO DAILY PRN PRN Reason: Constipation Stop: 09/19/23 02:53 Last Admin: 08/24/23 19:45 Dose: 30 ml Metformin HCl (Metformin Hcl 500 Mg Tab) 1,000 mg PO BIDM [facility] Stop: 09/19/23 08:59 Last Admin: 09/01/23 08:00 Dose: 1,000 mg Metoprolol Tartrate (Metoprolol Tartrate 50 Mg Tab) 50 mg PO BID [facility] Stop: 09/19/23 08:59 Last Admin: 09/01/23 08:03 Dose: 50 mg Miscellaneous (Remove Nicoderm Patch) 1 each N/A DAILY@0859 [facility] Stop: 09/19/23 08:58 Last Admin: 09/01/23 07:44 Dose: Not Given Miscellaneous (Remove Lidoderm Patch) 1 each N/A DAILY@2100 [facility] Stop: 09/21/23 20:59 Last Admin: 08/31/23 21:27 Dose: 1 each Nicotine (Nicotine 7 Mg/24 Hr Tdsy) 1 patch TD QAM [facility] Stop: 09/19/23 08:59 Last Admin: 09/01/23 08:04 Dose: 1 patch Nicotine Polacrilex (Nicotine Polacrilex 2 Mg Gum) 1 piece MT PRN PRN PRN Reason: nicotine cravings Stop: 09/24/23 12:40 Last Admin: 08/30/23 20:30 Dose: 1 piece Olanzapine (Olanzapine 2.5 Mg Tab) 7.5 mg PO HS [facility] Stop: 09/28/23 21:59 Last Admin: 08/31/23 21:25 Dose: 7.5 mg Olanzapine (Olanzapine 2.5 Mg Tab) 2.5 mg PO BID PRN PRN Reason: Paranoia/Agitation Stop: 09/28/23 20:59 Pantoprazole Sodium (Pantoprazole 40 Mg Tab) 40 mg PO HS [facility] Stop: 09/19/23 21:59 Last Admin: 08/31/23 21:26 Dose: 40 mg Sodium Chloride (Sodium Chloride 0.65% Na Soln 45 Ml ([place])) 1 - 2 sprays NA PRN PRN PRN Reason: Nasal Dryness/Congestion Stop: 09/19/23 02:53 Valsartan (Valsartan 80 Mg Tab) 40 mg PO BID [facility] Stop: 09/19/23 08:59 Last Admin: 09/01/23 08:13 Dose: 40 mg Mental Health & Subst Abuse Tx Therapist Name of Therapist: N/A Rod Drawer Name of Rod Drawer: N/A (1) Psychosis Psychosis type: other Qualified Code(s): F28 - Other psychotic disorder not due to a substance or known physiological condition
[2023-09-02] MEDS: DULoxetine HCL 30 MG CAP PO SCH (08:22)
--- NOTE | 2023-09-02 13:09 | Psychiatric Progress Note ---
Date of Service September 02, 2023 Impression / Recommendations Impression JAE HUERTA is a 63-year-old woman with a history of psychosis admitted initially on a 302 involuntary commitment, now converted to voluntary status, for psychosis and acting on delusional thoughts. Differential includes schizophrenia vs post-TBI induced psychosis vs delusional disorder vs mood disorder such as gi. 08/29/23: Ongoing persecutory delusions and paranoia, able to reality-test at times but struggles to do this with any consistency. Continues to be very tangential. Ongoing concerns about deplorable state of her home with no water or sewage which seems to have lead her to restrict her intake to avoid having bowel movements. Tolerating taper of duloxetine given concerns for possible gi component. 08/30/23 Patient says she is doing well. We will continue to observe and titrate the medications as required. 08/31/23 Patient continue to say she is doing well. She is perseverating on the Risperidone so I have stopped it. She is on a very low dose and it is likely the Zyprexa that is helping her. 09/01/23 Patient continues to be pleased with her treatment here. She is doing well on the Zyprexa. She says she particularly likes the Buspar. We decreased the dose of her cymbalta. 09/02/2023 Patient seems to have regressed and was paranoid and poorly cooperative today. (1) Psychosis: Continue treatment with Zyprexa (2) Diabetes mellitus type 2, uncontrolled: Continue current treatment. (3) Hyperlipidemia: Continue current treatment. (4) Hypertension: Continue current treatment. (5) Coronary artery disease: Continue current treatment. Plan 09/02/23 Patient was irritable and paranoid today. This is different than her presentation over the last few days. We will continue to monitor. 09/01/23: we continued the duloxetine taper today. 08/31/23: I have discontinued the Risperidone because I want her to be on only one anti psychotic. I will continue to taper the duloxetine tomorrow. 08/29/2023: -Increase olanzapine to 7.5mg HS -Olanzapine 2.5mg BID prn for paranoia/agitation and risperidone if she refuses olanzapine (she seems to have developed a new preference for this) -Continue to taper duloxetine as tolerated 08/28/2023: -Continue current medications and tx plan 08/27/2023: -Continue olanzapine -Decrease Cymbalta to 60mg daily -EKG given her report of history of cardiac event with atypical symptoms 08/26/2023: -Discontinue risperidone -Start olanzapine 5mg HS 08/25/2023: Continue current medications and tx plan. Change colace to prn given loose stool this AM. 08/24/2023: Increase risperidone to 0.5mg qAM & 1 mg HS. May need to consider tapering Cymbalta but will hold off for now. Elopement precautions. 08/23/2023: -Discontinue abilify -Start risperidone 1mg HS -Increase buspar to 10mg BID -Discontinue Wellbutrin -Continue Cymbalta -Fasting lipid panel in AM 08/22/2023: Continue home Cymbalta Buspar Wellbutrin. Increase Abilify to 5mg QAM and 5mg HS. Decrease Wellbutrin to 150mg QD. Encourage fluid intake. Working with social work to provide appropriate outpatient resources post discharge. Colace 100mg BID started. Lidocaine patch 5% QD for low back pain started. Ibuprofen 200mg Q8hr PRN for pain started. 08/21/2023: Continue home Cymbalta Buspar Wellbutrin. Continue Abilify 5 mg at bedtime. Encourage fluid intake. Working with social work to provide appropriate outpatient resources post discharge. BG checks daily. Inventory Assets Strengths: housing, trusts PCP Needs: additional services, medication management, psychiatric follow-up Suicide Risk Level Suicide Risk Level: Moderate (q15 min suicide checks) (denies SI but with ongoing psychosis) Risk Factors Assessment : Yes Do You Have Access To A Gun?: No Mental Health Diagnoses: Yes Previous Psychiatric Hospitalization: Yes Protective Factors Assessment Employed: No Stable Relationships: Yes Good Rapport with Provider: Yes (PCP) Interval History Identifying Information JAE HUERTA is a 63-year-old F who currently lives alone, has a history of psychosis, and was admitted on 08/20/23 01:01 on a 302 involuntary commitment for psychosis and acting on delusional thoughts. Chief Complaint "I saw Shoshana in your office talking about me". Review of Systems Sleep Information Total Hours of Sleep: 6.30 Sleep Comments: HS Buspar and Zyprexa Meal Information Percent Meal Consumed - Breakfast: 100 Percent Meal Consumed - Lunch: 100 Percent Meal Consumed - Dinner: 75 Nutrition Comment: sleeping Subjective Subjective Patient was seen & assessed and interval progress reviewed with treatment team, nursing and social work. She has been doing well for the past few days but last night she reportedly was paranoid and she again became paranoid today. Physical Exam Mental Examination Appearance: Well Groomed Eye Contact: Maintains Eye Contact Motor Behavior: Unremarkable Speech: Normal and Circumstantial Mood: Anxious and Irritable Affect: Congruent Thought Process: Disorganized Thought Content: Circumstantial Hallucinations: None Insight: Poor Judgement: Poor Psychiatric Orientation: alert and oriented x 3 Eye Contact: good eye contact Motor Behavior: no abnormal motor movements Speech: normal rate/rhythm/volume of speech Affect: + anxious affect and + constricted affect Mood: + irritable mood and + dysphoric mood; no depressed mood, no anxious mood and no angry mood Thought Process: + circumstantial thought process, + tangential thought process and + confabulations (possibly) Thought Content: + paranoid and + persecution; no delusions and no worthlessness Suicidal Thoughts: denies suicidal thoughts Homicidal Thoughts: denies homicidal thoughts Hallucinations: no auditory hallucinations Insight: + limited insight Judgment: + limited judgement Vital Signs (Past 24 Hours) Last Vital Signs Temp 36.4 C L 09/02/23 06:32 Pulse 80 09/02/23 06:33 Resp 16 09/02/23 06:32 BP 165/92 H 09/02/23 06:33 Pulse Ox 96 08/27/23 15:46 O2 Del Method Room Air 08/27/23 15:46 Results & Data ([facility]) Laboratory Results Laboratory Results - last 24 hr 09/02/23 06:24 POC Glucose 142 H Current Inpatient Medications Current Inpatient Medications: Current Inpatient Medications Acetaminophen (Acetaminophen 325 Mg Tab) 650 mg PO Q4H PRN PRN Reason: Headache or Minor Fever Stop: 09/19/23 02:53 Last Admin: 09/02/23 08:36 Dose: 650 mg Al Hydrox/Mg Hydrox/Simethicone (Aluminum/Magnesium Susp 30 Ml Udc) 30 ml PO Q4H PRN PRN Reason: GI Upset Stop: 09/19/23 02:53 Last Admin: 08/20/23 16:00 Dose: 30 ml Amlodipine Besylate (Amlodipine Besylate 5 Mg Tab) 5 mg PO BID [facility] Stop: 09/19/23 08:59 Last Admin: 09/02/23 08:21 Dose: 5 mg Aspirin (Aspirin 81 Mg Chew) 81 mg PO QPM [facility] Stop: 09/19/23 20:59 Last Admin: 09/01/23 21:09 Dose: 81 mg Atorvastatin Calcium (Atorvastatin 40 Mg Tab) 80 mg PO QPM [facility] Stop: 09/19/23 20:59 Last Admin: 09/01/23 21:09 Dose: 80 mg Bisacodyl (Bisacodyl 5 Mg Tabec) 5 mg PO DAILY PRN PRN Reason: Constipation Stop: 09/21/23 09:48 Bismuth Subsalicylate (Bismuth Subsalicylate Liqd 236 Ml) 15 ml PO PRN PRN PRN Reason: Loose Stool Stop: 09/19/23 02:53 Buspirone HCl (Buspirone 5 Mg Tab) 10 mg PO BID [facility] Stop: 09/22/23 20:59 Last Admin: 09/02/23 08:21 Dose: 10 mg Clopidogrel Bisulfate (Clopidogrel Bisulfate 75 Mg Tab) 75 mg PO QAM [facility] Stop: 09/19/23 08:59 Last Admin: 09/02/23 08:21 Dose: 75 mg Docusate Sodium (Docusate Sodium 100 Mg Cap) 100 mg PO BID PRN PRN Reason: Constipation Stop: 09/24/23 20:59 Duloxetine HCl (D[facility]etine Hcl 30 Mg Cap) [facility] Stop: 10/02/23 08:59 Last Admin: 09/02/23 08:22 Dose: 30 mg Hydroxyzine HCl (Hydroxyzine Hcl 25 Mg Tab) 25 mg PO HSZ PRN PRN Reason: Insomnia Stop: 09/19/23 02:53 Last Admin: 08/29/23 00:10 Dose: 25 mg Hydroxyzine HCl (Hydroxyzine Hcl 25 Mg Tab) 25 mg PO Q4H PRN PRN Reason: Anxiety Stop: 09/19/23 02:53 Last Admin: 08/31/23 20:24 Dose: 25 mg Ibuprofen (Ibuprofen 200 Mg Tab) 200 mg PO Q8H PRN PRN Reason: Pain or Fever Stop: 09/20/23 19:35 Last Admin: 09/02/23 08:34 Dose: 200 mg Lidocaine (Lidocaine 5% 1 Patch) 1 patch TD QAM [facility] Stop: 09/21/23 09:59 Last Admin: 09/02/23 08:22 Dose: 1 patch Magnesium Hydroxide (Magnesium Hydroxide Susp 30 Ml Udc) 30 ml PO DAILY PRN PRN Reason: Constipation Stop: 09/19/23 02:53 Last Admin: 08/24/23 19:45 Dose: 30 ml Metformin HCl (Metformin Hcl 500 Mg Tab) 1,000 mg PO BIDM [facility] Stop: 09/19/23 08:59 Last Admin: 09/02/23 08:22 Dose: 1,000 mg Metoprolol Tartrate (Metoprolol Tartrate 50 Mg Tab) 50 mg PO BID [facility] Stop: 09/19/23 08:59 Last Admin: 09/02/23 08:22 Dose: 50 mg Miscellaneous (Remove Nicoderm Patch) 1 each N/A DAILY@0859 [facility] Stop: 09/19/23 08:58 Last Admin: 09/02/23 08:29 Dose: 1 each Miscellaneous (Remove Lidoderm Patch) 1 each N/A DAILY@2100 [facility] Stop: 09/21/23 20:59 Last Admin: 09/01/23 21:34 Dose: 1 each Nicotine (Nicotine 7 Mg/24 Hr Tdsy) 1 patch TD [facility] Stop: 09/19/23 08:59 Last Admin: 09/02/23 08:29 Dose: 1 patch Nicotine Polacrilex (Nicotine Polacrilex 2 Mg Gum) 1 piece MT PRN PRN PRN Reason: nicotine cravings Stop: 09/24/23 12:40 Last Admin: 08/30/23 20:30 Dose: 1 piece Olanzapine (Olanzapine 2.5 Mg Tab) 7.5 mg PO [facility] Stop: 09/28/23 21:59 Last Admin: 09/01/23 21:13 Dose: 7.5 mg Olanzapine (Olanzapine 2.5 Mg Tab) 2.5 mg PO BID PRN PRN Reason: Paranoia/Agitation Stop: 09/28/23 20:59 Pantoprazole Sodium (Pantoprazole 40 Mg Tab) 40 mg PO [facility] Stop: 09/19/23 21:59 Last Admin: 09/01/23 21:13 Dose: 40 mg Sodium Chloride (Sodium Chloride 0.65% Na Soln 45 Ml ([place])) 1 - 2 sprays NA PRN PRN PRN Reason: Nasal Dryness/Congestion Stop: 09/19/23 02:53 Valsartan (Valsartan 80 Mg Tab) 40 mg PO BID [facility] Stop: 09/19/23 08:59 Last Admin: 09/02/23 08:23 Dose: 40 mg Mental Health & Subst Abuse Tx Therapist Name of Therapist: N/A Visiting Nurse Name of Visiting Nurse: N/A (1) Psychosis Psychosis type: other Qualified Code(s): F28 - Other psychotic disorder not due to a substance or known physiological condition
[2023-09-02] MEDS: OLANZAPINE 2.5 MG TAB PO PRN (14:06)
--- NOTE | 2023-09-03 11:39 | Psychiatric Progress Note ---
Date of Service September 03, 2023 Impression / Recommendations Impression JAE HUERTA is a 63-year-old woman with a history of psychosis admitted initially on a 302 involuntary commitment, now converted to voluntary status, for psychosis and acting on delusional thoughts. Differential includes schizophrenia vs post-TBI induced psychosis vs delusional disorder vs mood disorder such as gi. 08/29/23: Ongoing persecutory delusions and paranoia, able to reality-test at times but struggles to do this with any consistency. Continues to be very tangential. Ongoing concerns about deplorable state of her home with no water or sewage which seems to have lead her to restrict her intake to avoid having bowel movements. Tolerating taper of duloxetine given concerns for possible gi component. 08/30/23 Patient says she is doing well. We will continue to observe and titrate the medications as required. 08/31/23 Patient continue to say she is doing well. She is perseverating on the Risperidone so I have stopped it. She is on a very low dose and it is likely the Zyprexa that is helping her. 09/01/23 Patient continues to be pleased with her treatment here. She is doing well on the Zyprexa. She says she particularly likes the Buspar. We decreased the dose of her cymbalta. 09/02/2023 Patient seems to have regressed and was paranoid and poorly cooperative today. 09/03/23 Patient was more pleasant today. She waxes and wanes in her level of functioning. This is more likely due to a dementia rather than her mental illness. Patient remains a danger to herself and others and is unable to care for herself outside the hospital. Measures should be started to have her placed in a safer living situation; from all reports her home is no longer habitable. (1) Psychosis: Continue treatment with Zyprexa (2) Diabetes mellitus type 2, uncontrolled: Continue current treatment. (3) Hyperlipidemia: Continue current treatment. (4) Hypertension: Continue current treatment. (5) Coronary artery disease: Continue current treatment. Plan 09/02/23 Patient was irritable and paranoid today. This is different than her presentation over the last few days. We will continue to monitor. 09/01/23: we continued the duloxetine taper today. 08/31/23: I have discontinued the Risperidone because I want her to be on only one anti psychotic. I will continue to taper the duloxetine tomorrow. 08/29/2023: -Increase olanzapine to 7.5mg HS -Olanzapine 2.5mg BID prn for paranoia/agitation and risperidone if she refuses olanzapine (she seems to have developed a new preference for this) -Continue to taper duloxetine as tolerated 08/28/2023: -Continue current medications and tx plan 08/27/2023: -Continue olanzapine -Decrease Cymbalta to 60mg daily -EKG given her report of history of cardiac event with atypical symptoms 08/26/2023: -Discontinue risperidone -Start olanzapine 5mg HS 08/25/2023: Continue current medications and tx plan. Change colace to prn given loose stool this AM. 08/24/2023: Increase risperidone to 0.5mg qAM & 1 mg HS. May need to consider tapering Cymbalta but will hold off for now. Elopement precautions. 08/23/2023: -Discontinue abilify -Start risperidone 1mg HS -Increase buspar to 10mg BID -Discontinue Wellbutrin -Continue Cymbalta -Fasting lipid panel in AM 08/22/2023: Continue home Cymbalta Buspar Wellbutrin. Increase Abilify to 5mg QAM and 5mg HS. Decrease Wellbutrin to 150mg QD. Encourage fluid intake. Working with social work to provide appropriate outpatient resources post discharge. Colace 100mg BID started. Lidocaine patch 5% QD for low back pain started. Ibuprofen 200mg Q8hr PRN for pain started. 08/21/2023: Continue home Cymbalta Buspar Wellbutrin. Continue Abilify 5 mg at bedtime. Encourage fluid intake. Working with social work to provide appropriate outpatient resources post discharge. BG checks daily. Inventory Assets Strengths: housing, trusts PCP Needs: additional services, medication management, psychiatric follow-up Suicide Risk Level Suicide Risk Level: Moderate (q15 min suicide checks) (denies SI but with ongoing psychosis) Risk Factors Assessment : Yes Do You Have Access To A Gun?: No Mental Health Diagnoses: Yes Previous Psychiatric Hospitalization: Yes Protective Factors Assessment Employed: No Stable Relationships: Yes Good Rapport with Provider: Yes (PCP) Interval History Identifying Information JAE HUERTA is a 63-year-old F who currently lives alone, has a history of psychosis, and was admitted on 08/20/23 01:01 on a 302 involuntary commitment for psychosis and acting on delusional thoughts. Chief Complaint "I'm doing well". Review of Systems Sleep Information Total Hours of Sleep: 5.5 Sleep Comments: HS Buspar and Tirexa Meal Information Percent Meal Consumed - Breakfast: 100 Percent Meal Consumed - Lunch: 100 Percent Meal Consumed - Dinner: 50 Nutrition Comment: sleeping Subjective Subjective Patient was seen & assessed and interval progress reviewed with treatment team, nursing and social work. She is doing much better than yesterday. She reportedly was embarrassed about her behavior yesterday. She is stable from a psychiatric point of view, however her confusion waxes and wanes and this is unlikely to improve. This may very well be an early onset dementia and placement in an assisted living situation should be strongly considered. From reports, the patient's living situation is unsafe and would contribute to further deterioration and decompensation. Procedures to inspect her home should be started because the patient says that everything is fixed but she is prone to confabulations and this seems very unlikely. Adult protective services may need to become involve. Physical Exam Mental Examination Appearance: Well Groomed Eye Contact: Maintains Eye Contact Motor Behavior: Unremarkable Speech: Normal and Circumstantial Mood: Anxious and Irritable Affect: Congruent Thought Process: Disorganized Thought Content: Circumstantial Hallucinations: None Insight: Poor Judgement: Poor Psychiatric Orientation: alert and oriented x 3 Eye Contact: good eye contact Motor Behavior: no abnormal motor movements Speech: normal rate/rhythm/volume of speech Affect: euthymic affect, + anxious affect and + constricted affect Mood: + irritable mood and + dysphoric mood; no depressed mood, no anxious mood and no angry mood Thought Process: + circumstantial thought process, + tangential thought process and + confabulations (possibly) Thought Content: + paranoid, + delusions and + persecution; no worthlessness Suicidal Thoughts: denies suicidal thoughts Homicidal Thoughts: denies homicidal thoughts Hallucinations: no auditory hallucinations Insight: + poor insight Judgment: + limited judgement and + poor judgement Vital Signs (Past 24 Hours) Last Vital Signs Temp 37 C 09/03/23 06:31 Pulse 77 09/03/23 06:31 Resp 16 09/03/23 06:31 BP 157/91 H 09/03/23 06:31 Pulse Ox 99 09/02/23 21:22 O2 Del Method Room Air 09/02/23 21:22 Results & Data ([facility]) Laboratory Results Laboratory Results - last 24 hr 09/03/23 07:27 POC Glucose 168 H Current Inpatient Medications Current Inpatient Medications: Current Inpatient Medications Acetaminophen (Acetaminophen 325 Mg Tab) 650 mg PO Q4H PRN PRN Reason: Headache or Minor Fever Stop: 09/19/23 02:53 Last Admin: 09/03/23 08:13 Dose: 650 mg Al Hydrox/Mg Hydrox/Simethicone (Aluminum/Magnesium Susp 30 Ml Udc) 30 ml PO Q4H PRN PRN Reason: GI Upset Stop: 09/19/23 02:53 Last Admin: 08/20/23 16:00 Dose: 30 ml Amlodipine Besylate (Amlodipine Besylate 5 Mg Tab) 5 mg PO BID [facility] Stop: 09/19/23 08:59 Last Admin: 09/03/23 07:41 Dose: 5 mg Aspirin (Aspirin 81 Mg Chew) 81 mg PO QPM [facility] Stop: 09/19/23 20:59 Last Admin: 09/02/23 21:08 Dose: 81 mg Atorvastatin Calcium (Atorvastatin 40 Mg Tab) 80 mg PO QPM [facility] Stop: 09/19/23 20:59 Last Admin: 09/02/23 21:09 Dose: 80 mg Bisacodyl (Bisacodyl 5 Mg Tabec) 5 mg PO DAILY PRN PRN Reason: Constipation Stop: 09/21/23 09:48 Bismuth Subsalicylate (Bismuth Subsalicylate Liqd 236 Ml) 15 ml PO PRN PRN PRN Reason: Loose Stool Stop: 09/19/23 02:53 Buspirone HCl (Buspirone 5 Mg Tab) 10 mg PO BID [facility] Stop: 09/22/23 20:59 Last Admin: 09/03/23 07:40 Dose: 10 mg Clopidogrel Bisulfate (Clopidogrel Bisulfate 75 Mg Tab) 75 mg PO QAM [facility] Stop: 09/19/23 08:59 Last Admin: 09/03/23 07:41 Dose: 75 mg Docusate Sodium (Docusate Sodium 100 Mg Cap) 100 mg PO BID PRN PRN Reason: Constipation Stop: 06/12/24 20:59 Duloxetine HCl (Duloxetine Hcl 30 Mg Cap) 30 mg PO QAM [facility] Stop: 10/02/23 08:59 Last Admin: 09/03/23 07:42 Dose: 30 mg Hydroxyzine HCl (Hydroxyzine Hcl 25 Mg Tab) 25 mg PO HSZ PRN PRN Reason: Insomnia Stop: 09/19/23 02:53 Last Admin: 08/29/23 00:10 Dose: 25 mg Hydroxyzine HCl (Hydroxyzine Hcl 25 Mg Tab) 25 mg PO Q4H PRN PRN Reason: Anxiety Stop: 09/19/23 02:53 Last Admin: 08/31/23 20:24 Dose: 25 mg Ibuprofen (Ibuprofen 200 Mg Tab) 200 mg PO Q8H PRN PRN Reason: Pain or Fever Stop: 09/20/23 19:35 Last Admin: 09/03/23 08:13 Dose: 200 mg Lidocaine (Lidocaine 5% 1 Patch) 1 patch TD [facility] Stop: 09/21/23 09:59 Last Admin: 09/03/23 07:57 Dose: 1 patch Magnesium Hydroxide (Magnesium Hydroxide Susp 30 Ml Udc) 30 ml PO DAILY PRN PRN Reason: Constipation Stop: 09/19/23 02:53 Last Admin: 08/24/23 19:45 Dose: 30 ml Metformin HCl (Metformin Hcl 500 Mg Tab) 1,000 mg PO BIDM [facility] Stop: 09/19/23 08:59 Last Admin: 09/03/23 07:43 Dose: 1,000 mg Metoprolol Tartrate (Metoprolol Tartrate 50 Mg Tab) 50 mg PO BID [facility] Stop: 09/19/23 08:59 Last Admin: 09/03/23 07:41 Dose: 50 mg Miscellaneous (Remove Nicoderm Patch) 1 each N/A DAILY@0859 [facility] Stop: 09/19/23 08:58 Last Admin: 09/03/23 07:48 Dose: 1 each Miscellaneous (Remove Lidoderm Patch) 1 each N/A DAILY@2100 [facility] Stop: 09/21/23 20:59 Last Admin: 09/02/23 21:20 Dose: 1 each Nicotine (Nicotine 7 Mg/24 Hr Tdsy) 1 patch TD QAM [facility] Stop: 09/19/23 08:59 Last Admin: 09/03/23 07:49 Dose: 1 patch Nicotine Polacrilex (Nicotine Polacrilex 2 Mg Gum) 1 piece MT PRN PRN PRN Reason: nicotine cravings Stop: 09/24/23 12:40 Last Admin: 08/30/23 20:30 Dose: 1 piece Olanzapine (Olanzapine 2.5 Mg Tab) 7.5 mg PO HS [facility] Stop: 09/28/23 21:59 Last Admin: 09/02/23 21:11 Dose: 7.5 mg Olanzapine (Olanzapine 2.5 Mg Tab) 2.5 mg PO BID PRN PRN Reason: Paranoia/Agitation Stop: 09/28/23 20:59 Last Admin: 09/02/23 14:06 Dose: 2.5 mg Pantoprazole Sodium (Pantoprazole 40 Mg Tab) 40 mg PO HS [facility] Stop: 09/19/23 21:59 Last Admin: 09/02/23 21:12 Dose: 40 mg Sodium Chloride (Sodium Chloride 0.65% Na Soln 45 Ml ([place])) 1 - 2 sprays NA PRN PRN PRN Reason: Nasal Dryness/Congestion Stop: 09/19/23 02:53 Valsartan (Valsartan 80 Mg Tab) 40 mg PO BID [facility] Stop: 09/19/23 08:59 Last Admin: 09/03/23 07:42 Dose: 40 mg Mental Health & Subst Abuse Tx Therapist Name of Therapist: N/A Scalper Operator Name of Scalper Operator: N/A (1) Psychosis Psychosis type: other Qualified Code(s): F28 - Other psychotic disorder not due to a substance or known physiological condition
--- NOTE | 2023-09-04 10:03 | Psychiatric Progress Note ---
Date of Service September 04, 2023 Impression / Recommendations Impression JAE HUERTA is a 63-year-old woman with a history of psychosis admitted initially on a 302 involuntary commitment, now converted to voluntary status, for psychosis and acting on delusional thoughts. Differential includes schizophrenia vs post-TBI induced psychosis vs delusional disorder vs mood disorder such as gi. 08/29/23: Ongoing persecutory delusions and paranoia, able to reality-test at times but struggles to do this with any consistency. Continues to be very tangential. Ongoing concerns about deplorable state of her home with no water or sewage which seems to have lead her to restrict her intake to avoid having bowel movements. Tolerating taper of duloxetine given concerns for possible gi component. 08/30/23 Patient says she is doing well. We will continue to observe and titrate the medications as required. 08/31/23 Patient continue to say she is doing well. She is perseverating on the Risperidone so I have stopped it. She is on a very low dose and it is likely the Zyprexa that is helping her. 09/01/23 Patient continues to be pleased with her treatment here. She is doing well on the Zyprexa. She says she particularly likes the Buspar. We decreased the dose of her cymbalta. 09/02/2023 Patient seems to have regressed and was paranoid and poorly cooperative today. 09/03/23 Patient was more pleasant today. She waxes and wanes in her level of functioning. This is more likely due to a dementia rather than her mental illness. Patient remains a danger to herself and others and is unable to care for herself outside the hospital. Measures should be started to have her placed in a safer living situation; from all reports her home is no longer habitable. 09/03/22 Patient today told me that she would be willing to consider moving into a senior assisted living facility. (1) Psychosis: Continue treatment with Zyprexa (2) Diabetes mellitus type 2, uncontrolled: Continue current treatment. (3) Hyperlipidemia: Continue current treatment. (4) Hypertension: Continue current treatment. (5) Coronary artery disease: Continue current treatment. Plan 09/02/23 Patient was irritable and paranoid today. This is different than her presentation over the last few days. We will continue to monitor. 09/01/23: we continued the duloxetine taper today. 08/31/23: I have discontinued the Risperidone because I want her to be on only one anti psychotic. I will continue to taper the duloxetine tomorrow. 08/29/2023: -Increase olanzapine to 7.5mg HS -Olanzapine 2.5mg BID prn for paranoia/agitation and risperidone if she refuses olanzapine (she seems to have developed a new preference for this) -Continue to taper duloxetine as tolerated 08/28/2023: -Continue current medications and tx plan 08/27/2023: -Continue olanzapine -Decrease Cymbalta to 60mg daily -EKG given her report of history of cardiac event with atypical symptoms 08/26/2023: -Discontinue risperidone -Start olanzapine 5mg HS 08/25/2023: Continue current medications and tx plan. Change colace to prn given loose stool this AM. 08/24/2023: Increase risperidone to 0.5mg qAM & 1 mg HS. May need to consider tapering Cymbalta but will hold off for now. Elopement precautions. 08/23/2023: -Discontinue abilify -Start risperidone 1mg HS -Increase buspar to 10mg BID -Discontinue Wellbutrin -Continue Cymbalta -Fasting lipid panel in AM 08/22/2023: Continue home Cymbalta Buspar Wellbutrin. Increase Abilify to 5mg QAM and 5mg HS. Decrease Wellbutrin to 150mg QD. Encourage fluid intake. Working with social work to provide appropriate outpatient resources post discharge. Colace 100mg BID started. Lidocaine patch 5% QD for low back pain started. Ibuprofen 200mg Q8hr PRN for pain started. 08/21/2023: Continue home Cymbalta Buspar Wellbutrin. Continue Abilify 5 mg at bedtime. Encourage fluid intake. Working with social work to provide appropriate outpatient resources post discharge. BG checks daily. Inventory Assets Strengths: housing, trusts PCP Needs: additional services, medication management, psychiatric follow-up Suicide Risk Level Suicide Risk Level: Moderate (q15 min suicide checks) (denies SI but with ongoing psychosis) Risk Factors Assessment : Yes Do You Have Access To A Gun?: No Mental Health Diagnoses: Yes Previous Psychiatric Hospitalization: Yes Protective Factors Assessment Employed: No Stable Relationships: Yes Good Rapport with Provider: Yes (PCP) Interval History Identifying Information JAE HUERTA is a 63-year-old F who currently lives alone, has a history of psychosis, and was admitted on 08/20/23 01:01 on a 302 involuntary commitment for psychosis and acting on delusional thoughts. Chief Complaint "I'm so sorry I was angry a couple of days ago. " Review of Systems Sleep Information Total Hours of Sleep: 5 Sleep Comments: HS Buspar and Zyprexa Meal Information Percent Meal Consumed - Breakfast: 100 Percent Meal Consumed - Lunch: 100 Percent Meal Consumed - Dinner: 50 Nutrition Comment: sleeping Subjective Subjective Patient was seen & assessed and interval progress reviewed with treatment team, nursing and social work. She said that she was sorry about her poor behavior but she had eaten something that didn't agree with her and so she was in a lot of pain. She says she is very happy here. We discussed that she maybe should move from her house, where she is very unhappy with her neighbors, into a nursing home facility. She thought that might be a good idea and said she is willing to consider it. Physical Exam Mental Examination Appearance: Well Groomed Eye Contact: Maintains Eye Contact Motor Behavior: Unremarkable Speech: Normal and Circumstantial Mood: Anxious Affect: Congruent Thought Process: Disorganized Thought Content: Circumstantial Hallucinations: None Insight: Poor Judgement: Poor Psychiatric Orientation: alert and oriented x 3 Eye Contact: good eye contact Motor Behavior: no abnormal motor movements Speech: normal rate/rhythm/volume of speech Affect: euthymic affect, + anxious affect and + constricted affect Mood: + dysphoric mood; no depressed mood, no anxious mood and no angry mood Thought Process: goal directed thought process, + circumstantial thought process, + tangential thought process and + confabulations (possibly) Thought Content: + paranoid, + delusions and + persecution; no worthlessness Suicidal Thoughts: denies suicidal thoughts Homicidal Thoughts: denies homicidal thoughts Hallucinations: no auditory hallucinations Insight: + limited insight and + poor insight Judgment: + limited judgement and + poor judgement Vital Signs (Past 24 Hours) Last Vital Signs Temp 36.6 C 09/04/23 06:33 Pulse 80 09/04/23 06:34 Resp 16 09/04/23 06:33 BP 128/81 09/04/23 06:34 Pulse Ox 98 09/03/23 20:07 O2 Del Method Room Air 09/03/23 20:07 Results & Data (U) Laboratory Results Laboratory Results - last 24 hr 09/04/23 08:52 POC Glucose 157 H Current Inpatient Medications Current Inpatient Medications: Current Inpatient Medications Acetaminophen (Acetaminophen 325 Mg Tab) 650 mg PO Q4H PRN PRN Reason: Headache or Minor Fever Stop: 09/19/23 02:53 Last Admin: 09/03/23 15:30 Dose: 650 mg Al Hydrox/Mg Hydrox/Simethicone (Aluminum/Magnesium Susp 30 Ml Udc) 30 ml PO Q4H PRN PRN Reason: GI Upset Stop: 09/19/23 02:53 Last Admin: 08/20/23 16:00 Dose: 30 ml Amlodipine Besylate (Amlodipine Besylate 5 Mg Tab) 5 mg PO BID [facility] Stop: 09/19/23 08:59 Last Admin: 09/04/23 09:16 Dose: 5 mg Aspirin (Aspirin 81 Mg Chew) 81 mg PO QPM [facility] Stop: 09/19/23 20:59 Last Admin: 09/03/23 21:31 Dose: 81 mg Atorvastatin Calcium (Atorvastatin 40 Mg Tab) 80 mg PO QPM [facility] Stop: 09/19/23 20:59 Last Admin: 09/03/23 21:31 Dose: 80 mg Bisacodyl (Bisacodyl 5 Mg Tabec) 5 mg PO DAILY PRN PRN Reason: Constipation Stop: 09/21/23 09:48 Bismuth Subsalicylate (Bismuth Subsalicylate Liqd 236 Ml) 15 ml PO PRN PRN PRN Reason: Loose Stool Stop: 09/19/23 02:53 Buspirone HCl (Buspirone 5 Mg Tab) 10 mg PO BID [facility] Stop: 09/22/23 20:59 Last Admin: 09/04/23 09:17 Dose: 10 mg Clopidogrel Bisulfate (Clopidogrel Bisulfate 75 Mg Tab) 75 mg PO QAM [facility] Stop: 09/19/23 08:59 Last Admin: 09/04/23 09:16 Dose: 75 mg Docusate Sodium (Docusate Sodium 100 Mg Cap) 100 mg PO BID PRN PRN Reason: Constipation Stop: 09/24/23 20:59 Duloxetine HCl (Duloxetine Hcl 30 Mg Cap) 30 mg PO QAM [facility] Stop: 10/02/23 08:59 Last Admin: 09/04/23 09:17 Dose: 30 mg Hydroxyzine HCl (Hydroxyzine Hcl 25 Mg Tab) 25 mg PO HSZ PRN PRN Reason: Insomnia Stop: 09/19/23 02:53 Last Admin: 08/29/23 00:10 Dose: 25 mg Hydroxyzine HCl (Hydroxyzine Hcl 25 Mg Tab) 25 mg PO Q4H PRN PRN Reason: Anxiety Stop: 09/19/23 02:53 Last Admin: 09/03/23 16:22 Dose: 25 mg Ibuprofen (Ibuprofen 200 Mg Tab) 200 mg PO Q8H PRN PRN Reason: Pain or Fever Stop: 09/20/23 19:35 Last Admin: 09/03/23 17:38 Dose: 200 mg Lidocaine (Lidocaine 5% 1 Patch) 1 patch TD [facility] Stop: 09/21/23 09:59 Last Admin: 09/04/23 09:18 Dose: 1 patch Magnesium Hydroxide (Magnesium Hydroxide Susp 30 Ml Udc) 30 ml PO DAILY PRN PRN Reason: Constipation Stop: 09/19/23 02:53 Last Admin: 08/24/23 19:45 Dose: 30 ml Metformin HCl (Metformin Hcl 500 Mg Tab) 1,000 mg PO BIDM [facility] Stop: 09/19/23 08:59 Last Admin: 09/04/23 09:17 Dose: 1,000 mg Metoprolol Tartrate (Metoprolol Tartrate 50 Mg Tab) 50 mg PO BID [facility] Stop: 09/19/23 08:59 Last Admin: 09/04/23 09:16 Dose: 50 mg Miscellaneous (Remove Nicoderm Patch) 1 each N/A DAILY@0859 [facility] Stop: 09/19/23 08:58 Last Admin: 09/04/23 09:18 Dose: 1 each Miscellaneous (Remove Lidoderm Patch) 1 each N/A DAILY@2100 [facility] Stop: 09/21/23 20:59 Last Admin: 09/03/23 21:33 Dose: 1 each Nicotine (Nicotine 7 Mg/24 Hr Tdsy) 1 patch TD QAM [facility] Stop: 09/19/23 08:59 Last Admin: 09/04/23 09:18 Dose: 1 patch Nicotine Polacrilex (Nicotine Polacrilex 2 Mg Gum) 1 piece MT PRN PRN PRN Reason: nicotine cravings Stop: 09/24/23 12:40 Last Admin: 08/30/23 20:30 Dose: 1 piece Olanzapine (Olanzapine 2.5 Mg Tab) 7.5 mg PO HS [facility] Stop: 09/28/23 21:59 Last Admin: 09/03/23 21:33 Dose: 7.5 mg Olanzapine (Olanzapine 2.5 Mg Tab) 2.5 mg PO BID PRN PRN Reason: Paranoia/Agitation Stop: 09/28/23 20:59 Last Admin: 09/02/23 14:06 Dose: 2.5 mg Pantoprazole Sodium (Pantoprazole 40 Mg Tab) 40 mg PO HS [facility] Stop: 09/19/23 21:59 Last Admin: 09/03/23 21:33 Dose: 40 mg Sodium Chloride (Sodium Chloride 0.65% Na Soln 45 Ml ([place])) 1 - 2 sprays NA PRN PRN PRN Reason: Nasal Dryness/Congestion Stop: 09/19/23 02:53 Valsartan (Valsartan 80 Mg Tab) 40 mg PO BID [facility] Stop: 09/19/23 08:59 Last Admin: 09/04/23 09:17 Dose: 40 mg Mental Health & Subst Abuse Tx Therapist Name of Therapist: N/A Drum Sprayer Name of Drum Sprayer: N/A (1) Psychosis Psychosis type: other Qualified Code(s): F28 - Other psychotic disorder not due to a substance or known physiological condition
[2023-09-05 12:43] LABS: Appearance Urine Clear (Clear); Bacteria Urine Automated 1+ (None Seen); Bilirubin Urine Negative (Negative); Blood Urine Negative (Negative); Cast Urine Automated 0-2 /lpf (0-2); Color Urine Yellow; Epithelial Cell Urine Auto 0-2 /hpf (0-2); Glucose Urine UA Negative (Negative); Ketones Urine Negative (Negative); Leukocyte Esterase Urine 2+ (Negative); Nitrite Urine Negative (Negative); Protein Urine Negative (Negative); RBC Urine Automated 0-2 /hpf (0-2); Specific Gravity Urine 1.021 (1.000-1.030); Urobilinogen Urine Negative (Negative); WBC Urine Automated 21-50 /hpf (0-5); pH Urine 5.5 (4.5-7.5)
--- NOTE | 2023-09-05 16:46 | Psychiatric Progress Note ---
Date of Service September 05, 2023 Impression / Recommendations Impression JAE HUERTA is a 63-year-old woman with a history of psychosis admitted initially on a 302 involuntary commitment, now converted to voluntary status, for psychosis and acting on delusional thoughts. Differential includes schizophrenia vs post-TBI induced psychosis vs delusional disorder vs mood disorder such as gi. 08/29/23: Ongoing persecutory delusions and paranoia, able to reality-test at times but struggles to do this with any consistency. Continues to be very tangential. Ongoing concerns about deplorable state of her home with no water or sewage which seems to have lead her to restrict her intake to avoid having bowel movements. Tolerating taper of duloxetine given concerns for possible gi component. 08/30/23 Patient says she is doing well. We will continue to observe and titrate the medications as required. 08/31/23 Patient continue to say she is doing well. She is perseverating on the Risperidone so I have stopped it. She is on a very low dose and it is likely the Zyprexa that is helping her. 09/01/23 Patient continues to be pleased with her treatment here. She is doing well on the Zyprexa. She says she particularly likes the Buspar. We decreased the dose of her cymbalta. 09/02/2023 Patient seems to have regressed and was paranoid and poorly cooperative today. 09/03/23 Patient was more pleasant today. She waxes and wanes in her level of functioning. This is more likely due to a dementia rather than her mental illness. Patient remains a danger to herself and others and is unable to care for herself outside the hospital. Measures should be started to have her placed in a safer living situation; from all reports her home is no longer habitable. 09/04/23 Patient today told me that she would be willing to consider moving into a senior assisted living facility. 09/05/23 Patient complained of UTI symptoms adn was tested. She has been prescribed an antibiotic. She continues to be pleasant and cooperative with the staff. (1) Psychosis: Continue treatment with Zyprexa (2) Diabetes mellitus type 2, uncontrolled: Continue current treatment. (3) Hyperlipidemia: Continue current treatment. (4) Hypertension: Continue current treatment. (5) Coronary artery disease: Continue current treatment. Plan 09/02/23 Patient was irritable and paranoid today. This is different than her presentation over the last few days. We will continue to monitor. 09/01/23: we continued the duloxetine taper today. 08/31/23: I have discontinued the Risperidone because I want her to be on only one anti psychotic. I will continue to taper the duloxetine tomorrow. 08/29/2023: -Increase olanzapine to 7.5mg HS -Olanzapine 2.5mg BID prn for paranoia/agitation and risperidone if she refuses olanzapine (she seems to have developed a new preference for this) -Continue to taper duloxetine as tolerated 08/28/2023: -Continue current medications and tx plan 08/27/2023: -Continue olanzapine -Decrease Cymbalta to 60mg daily -EKG given her report of history of cardiac event with atypical symptoms 08/26/2023: -Discontinue risperidone -Start olanzapine 5mg HS 08/25/2023: Continue current medications and tx plan. Change colace to prn given loose stool this AM. 08/24/2023: Increase risperidone to 0.5mg qAM & 1 mg HS. May need to consider tapering Cymbalta but will hold off for now. Elopement precautions. 08/23/2023: -Discontinue abilify -Start risperidone 1mg HS -Increase buspar to 10mg BID -Discontinue Wellbutrin -Continue Cymbalta -Fasting lipid panel in AM 08/22/2023: Continue home Cymbalta Buspar Wellbutrin. Increase Abilify to 5mg QAM and 5mg HS. Decrease Wellbutrin to 150mg QD. Encourage fluid intake. Working with social work to provide appropriate outpatient resources post discharge. Colace 100mg BID started. Lidocaine patch 5% QD for low back pain started. Ibuprofen 200mg Q8hr PRN for pain started. 08/21/2023: Continue home Cymbalta Buspar Wellbutrin. Continue Abilify 5 mg at bedtime. Encourage fluid intake. Working with social work to provide appropriate outpatient resources post discharge. BG checks daily. Inventory Assets Strengths: housing, trusts PCP Needs: additional services, medication management, psychiatric follow-up Suicide Risk Level Suicide Risk Level: Moderate (q15 min suicide checks) (denies SI but with ongoing psychosis) Risk Factors Assessment : Yes Do You Have Access To A Gun?: No Mental Health Diagnoses: Yes Previous Psychiatric Hospitalization: Yes Protective Factors Assessment Employed: No Stable Relationships: Yes Good Rapport with Provider: Yes (PCP) Interval History Identifying Information JAE HUERTA is a 63-year-old F who currently lives alone, has a history of psychosis, and was admitted on 08/20/23 01:01 on a 302 involuntary commitment for psychosis and acting on delusional thoughts. Chief Complaint "Join us Dr Ayon". Review of Systems Sleep Information Total Hours of Sleep: 7 Sleep Comments: Scheduled Buspar and Zyprexa at HS Meal Information Percent Meal Consumed - Breakfast: 100 Percent Meal Consumed - Lunch: 75 Percent Meal Consumed - Dinner: 100 Nutrition Comment: sleeping Subjective Subjective Patient was seen & assessed and interval progress reviewed with treatment team, nursing and social work. She has complained of urinary symptoms and it was determined she has a UTI. Cefuroxime 500 BID was prescribed with the Pantoprazole recommended to be held as it will reduce the antibiotic efficacy. The patient was understanding and willing to comply with the regimen. Physical Exam Mental Examination Appearance: Well Groomed Eye Contact: Maintains Eye Contact Motor Behavior: Unremarkable Speech: Normal and Circumstantial Mood: Anxious Affect: Congruent Thought Process: Disorganized Thought Content: Circumstantial Hallucinations: None Insight: Poor Judgement: Poor Psychiatric Orientation: alert and oriented x 3 Eye Contact: good eye contact Motor Behavior: no abnormal motor movements Speech: normal rate/rhythm/volume of speech Affect: euthymic affect, + anxious affect and + constricted affect Mood: + irritable mood and + dysphoric mood; no depressed mood, no anxious mood and no angry mood Thought Process: goal directed thought process, + circumstantial thought process, + tangential thought process and + confabulations (possibly) Thought Content: + paranoid, + delusions and + persecution; no worthlessness Suicidal Thoughts: denies suicidal thoughts Homicidal Thoughts: denies homicidal thoughts Hallucinations: no auditory hallucinations Insight: + limited insight and + poor insight Judgment: + limited judgement and + poor judgement Vital Signs (Past 24 Hours) Last Vital Signs Temp 36.5 C 09/05/23 06:43 Pulse 61 09/05/23 06:44 Resp 16 09/05/23 06:43 BP 125/84 09/05/23 06:44 Pulse Ox 98 09/03/23 20:07 O2 Del Method Room Air 09/03/23 20:07 Results & Data ([facility]) Laboratory Results Laboratory Results - last 24 hr 09/05/23 09/05/23 06:29 12:24 POC Glucose 150 H Urine Color Yellow Urine Appearance Clear Urine pH 5.5 Ur Specific [place] 1.021 Urine Protein Negative Urine Glucose (UA) Negative Urine Ketones Negative Urine Blood Negative Urine Nitrite Negative Urine Bilirubin Negative Urine Urobilinogen Negative Ur Leukocyte Esterase 2+ H Urine WBC (Auto) 21-50 H Urine RBC (Auto) 0-2 U Hyaline Cast (Auto) 0-2 U Epithel Cells (Auto) 0-2 Urine Bacteria (Auto) 1+ H Current Inpatient Medications Current Inpatient Medications: Current Inpatient Medications Acetaminophen (Acetaminophen 325 Mg Tab) 650 mg PO Q4H PRN PRN Reason: Headache or Minor Fever Stop: 09/19/23 02:53 Last Admin: 09/05/23 12:26 Dose: 650 mg Al Hydrox/Mg Hydrox/Simethicone (Aluminum/Magnesium Susp 30 Ml Udc) 30 ml PO Q4H PRN PRN Reason: GI Upset Stop: 09/19/23 02:53 Last Admin: 08/20/23 16:00 Dose: 30 ml Amlodipine Besylate (Amlodipine Besylate 5 Mg Tab) 5 mg PO BID [facility] Stop: 09/19/23 08:59 Last Admin: 09/05/23 07:37 Dose: 5 mg Aspirin (Aspirin 81 Mg Chew) 81 mg PO QPM [facility] Stop: 09/19/23 20:59 Last Admin: 09/04/23 21:23 Dose: 81 mg Atorvastatin Calcium (Atorvastatin 40 Mg Tab) 80 mg PO QPM [facility] Stop: 09/19/23 20:59 Last Admin: 09/04/23 21:24 Dose: 80 mg Bisacodyl (Bisacodyl 5 Mg Tabec) 5 mg PO DAILY PRN PRN Reason: Constipation Stop: 09/21/23 09:48 Bismuth Subsalicylate (Bismuth Subsalicylate Liqd 236 Ml) 15 ml PO PRN PRN PRN Reason: Loose Stool Stop: 09/19/23 02:53 Buspirone HCl (Buspirone 5 Mg Tab) 10 mg PO BID [facility] Stop: 09/22/23 20:59 Last Admin: 09/05/23 07:36 Dose: 10 mg Clopidogrel Bisulfate (Clopidogrel Bisulfate 75 Mg Tab) 75 mg PO [facility] Stop: 09/19/23 08:59 Last Admin: 09/05/23 07:36 Dose: 75 mg Docusate Sodium (Docusate Sodium 100 Mg Cap) 100 mg PO BID PRN PRN Reason: Constipation Stop: 09/24/23 20:59 Duloxetine HCl (Duloxetine Hcl 30 Mg Cap) 30 mg PO [facility] Stop: 10/02/23 08:59 Last Admin: 09/05/23 07:37 Dose: 30 mg Hydroxyzine HCl (Hydroxyzine Hcl 25 Mg Tab) 25 mg PO HSZ PRN PRN Reason: Insomnia Stop: 09/19/23 02:53 Last Admin: 08/29/23 00:10 Dose: 25 mg Hydroxyzine HCl (Hydroxyzine Hcl 25 Mg Tab) 25 mg PO Q4H PRN PRN Reason: Anxiety Stop: 09/19/23 02:53 Last Admin: 09/05/23 12:27 Dose: 25 mg Ibuprofen (Ibuprofen 200 Mg Tab) 200 mg PO Q8H PRN PRN Reason: Pain or Fever Stop: 09/20/23 19:35 Last Admin: 09/05/23 07:49 Dose: 200 mg Lidocaine (Lidocaine 5% 1 Patch) 1 patch TD [facility] Stop: 09/21/23 09:59 Last Admin: 09/05/23 07:38 Dose: 1 patch Magnesium Hydroxide (Magnesium Hydroxide Susp 30 Ml Udc) 30 ml PO DAILY PRN PRN Reason: Constipation Stop: 09/19/23 02:53 Last Admin: 08/24/23 19:45 Dose: 30 ml Metformin HCl (Metformin Hcl 500 Mg Tab) [facility] Stop: 09/19/23 08:59 Last Admin: 09/05/23 07:37 Dose: 1,000 mg Metoprolol Tartrate (Metoprolol Tartrate 50 Mg Tab) 50 mg PO BID [facility] Stop: 09/19/23 08:59 Last Admin: 09/05/23 07:36 Dose: 50 mg Miscellaneous (Remove Nicoderm Patch) 1 each N/A DAILY@0859 [facility] Stop: 09/19/23 08:58 Last Admin: 09/04/23 21:28 Dose: 1 each Miscellaneous (Remove Lidoderm Patch) 1 each N/A DAILY@2100 [facility] Stop: 09/21/23 20:59 Last Admin: 09/04/23 21:27 Dose: 1 each Nicotine (Nicotine 7 Mg/24 Hr Tdsy) 1 patch TD QAM [facility] Stop: 09/19/23 08:59 Last Admin: 09/05/23 07:37 Dose: 1 patch Nicotine Polacrilex (Nicotine Polacrilex 2 Mg Gum) 1 piece MT PRN PRN PRN Reason: nicotine cravings Stop: 09/24/23 12:40 Last Admin: 08/30/23 20:30 Dose: 1 piece Olanzapine (Olanzapine 2.5 Mg Tab) 7.5 mg PO HS [facility] Stop: 09/28/23 21:59 Last Admin: 09/04/23 21:25 Dose: 7.5 mg Olanzapine (Olanzapine 2.5 Mg Tab) 2.5 mg PO BID PRN PRN Reason: Paranoia/Agitation Stop: 09/28/23 20:59 Last Admin: 09/02/23 14:06 Dose: 2.5 mg Pantoprazole Sodium (Pantoprazole 40 Mg Tab) 40 mg PO HS [facility] Stop: 09/19/23 21:59 Last Admin: 09/04/23 21:23 Dose: 40 mg Sodium Chloride (Sodium Chloride 0.65% Na Soln 45 Ml ([place])) 1 - 2 sprays NA PRN PRN PRN Reason: Nasal Dryness/Congestion Stop: 09/19/23 02:53 Valsartan (Valsartan 80 Mg Tab) 40 mg PO BID [facility] Stop: 09/19/23 08:59 Last Admin: 09/05/23 07:37 Dose: 40 mg Mental Health & Subst Abuse Tx Therapist Name of Therapist: N/A Stationary Equipment Mechanic Name of Stationary Equipment Mechanic: N/A (1) Psychosis Psychosis type: other Qualified Code(s): F28 - Other psychotic disorder not due to a substance or known physiological condition
[2023-09-05] MEDS: cefUROXime axetil 500 MG TAB PO SCH (17:52)
--- NOTE | 2023-09-06 09:31 | Psychiatric Progress Note ---
Date of Service September 06, 2023 Impression / Recommendations Impression JAE HUERTA is a 63-year-old woman with a history of psychosis admitted initially on a 302 involuntary commitment, now converted to voluntary status, for psychosis and acting on delusional thoughts. Differential includes schizophrenia vs post-TBI induced psychosis vs delusional disorder vs mood disorder such as gi. 09/06/2023: Reviewed interim progress. Continues to have periods of increased paranoia, ongoing delusions. Increased pain today, she consents to starting gabapentin to address this. Reviewed side effects including but not limited to dizziness, fatigue. Ongoing somatic concerns, unclear if psychosis is impacting this. 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 (1) Psychosis: Continue treatment with Zyprexa (2) Diabetes mellitus type 2, uncontrolled: Continue current treatment. (3) Hyperlipidemia: Continue current treatment. (4) Hypertension: Continue current treatment. (5) Coronary artery disease: Continue current treatment. Plan 09/06/2023: -Increase olanzapine to 2.5mg qAM and 7.5mg HS -Start gabapentin 100mg TID for increased leg pain/back pain 09/02/23 Patient was irritable and paranoid today. This is different than her presentation over the last few days. We will continue to monitor. 09/01/23: we continued the duloxetine taper today. 08/31/23: I have discontinued the Risperidone because I want her to be on only one anti psychotic. I will continue to taper the duloxetine tomorrow. 08/29/2023: -Increase olanzapine to 7.5mg HS -Olanzapine 2.5mg BID prn for paranoia/agitation and risperidone if she refuses olanzapine (she seems to have developed a new preference for this) -Continue to taper duloxetine as tolerated 08/28/2023: -Continue current medications and tx plan 08/27/2023: -Continue olanzapine -Decrease Cymbalta to 60mg daily -EKG given her report of history of cardiac event with atypical symptoms 08/26/2023: -Discontinue risperidone -Start olanzapine 5mg HS 08/25/2023: Continue current medications and tx plan. Change colace to prn given loose stool this AM. 08/24/2023: Increase risperidone to 0.5mg qAM & 1 mg HS. May need to consider tapering Cymbalta but will hold off for now. Elopement precautions. 08/23/2023: -Discontinue abilify -Start risperidone 1mg HS -Increase buspar to 10mg BID -Discontinue Wellbutrin -Continue Cymbalta -Fasting lipid panel in AM 08/22/2023: Continue home Cymbalta Buspar Wellbutrin. Increase Abilify to 5mg QAM and 5mg HS. Decrease Wellbutrin to 150mg QD. Encourage fluid intake. Working with social work to provide appropriate outpatient resources post discharge. Colace 100mg BID started. Lidocaine patch 5% QD for low back pain started. Ibuprofen 200mg Q8hr PRN for pain started. 08/21/2023: Continue home Cymbalta Buspar Wellbutrin. Continue Abilify 5 mg at bedtime. Encourage fluid intake. Working with social work to provide appropriate outpatient resources post discharge. BG checks daily. Inventory Assets Strengths: housing, trusts PCP Needs: additional services, medication management, psychiatric follow-up Suicide Risk Level Suicide Risk Level: Moderate (q15 min suicide checks) (denies SI but with ongoing psychosis) Risk Factors Assessment : Yes Do You Have Access To A Gun?: No Mental Health Diagnoses: Yes Previous Psychiatric Hospitalization: Yes Protective Factors Assessment Employed: No Stable Relationships: Yes Good Rapport with Provider: Yes (PCP) Interval History Identifying Information JAE HUERTA is a 63-year-old F who currently lives alone, has a history of psychosis, and was admitted on 08/20/23 01:01 on a 302 involuntary commitment for psychosis and acting on delusional thoughts. Chief Complaint "Having a lot of back pain that spreads down both legs". Review of Systems Sleep Information Total Hours of Sleep: 6 Sleep Comments: Pt required PRN Vistaril with HS Buspar and Zyprexa. Meal Information Percent Meal Consumed - Breakfast: 100 Percent Meal Consumed - Lunch: 75 Percent Meal Consumed - Dinner: 100 Nutrition Comment: sleeping Subjective Subjective Patient was seen & assessed and interval progress reviewed with treatment team nursing and social work. Still bringing up concerns about her neighbors doing things to her. Wrote a letter describing her concerns of not having her pain met but then said she destroyed it with toothpaste and would have burned it if she could have. She feels Vistaril helps with her focus. Frequently asking for prns. Reports ongoing sense of needing to "slow down" her thoughts. Increased back pain today, reports this has been a chronic issue for many years, used to get injections which helped for some time. She likes that Vistaril slows down her thoughts and helps her concentrate more. She is agreeable to trying AM dose of olanzapine for this. Physical Exam Psychiatric Orientation: alert and oriented x 3 Eye Contact: good eye contact Motor Behavior: no abnormal motor movements Speech: normal rate/rhythm/volume of speech Affect: + anxious affect Mood: + anxious mood Thought Process: + tangential thought process and + confabulations (possibly) Thought Content: + paranoid, + delusions and + persecution Suicidal Thoughts: denies suicidal thoughts Homicidal Thoughts: denies homicidal thoughts Hallucinations: no auditory hallucinations Insight: + poor insight Judgment: + limited judgement Vital Signs (Past 24 Hours) Last Vital Signs Temp 36.6 C 09/06/23 06:41 Pulse 67 09/06/23 06:41 Resp 16 09/06/23 06:41 BP 131/78 09/06/23 06:41 Pulse Ox 98 09/06/23 06:41 O2 Del Method Room Air 09/06/23 06:41 Results & Data ([facility]) Laboratory Results Laboratory Results - last 24 hr 09/05/23 09/06/23 12:24 06:34 POC Glucose 143 H Urine Color Yellow Urine Appearance Clear Urine pH 5.5 Ur Specific [place] 1.021 Urine Protein Negative Urine Glucose (UA) Negative Urine Ketones Negative Urine Blood Negative Urine Nitrite Negative Urine Bilirubin Negative Urine Urobilinogen Negative Ur Leukocyte Esterase 2+ H Urine WBC (Auto) 21-50 H Urine RBC (Auto) 0-2 U Hyaline Cast (Auto) 0-2 U Epithel Cells (Auto) 0-2 Urine Bacteria (Auto) 1+ H Current Inpatient Medications Current Inpatient Medications: Current Inpatient Medications Acetaminophen (Acetaminophen 325 Mg Tab) 650 mg PO Q4H PRN PRN Reason: Headache or Minor Fever Stop: 09/19/23 02:53 Last Admin: 09/06/23 07:03 Dose: 650 mg Al Hydrox/Mg Hydrox/Simethicone (Aluminum/Magnesium Susp 30 Ml Udc) 30 ml PO Q4H PRN PRN Reason: GI Upset Stop: 09/19/23 02:53 Last Admin: 08/20/23 16:00 Dose: 30 ml Amlodipine Besylate (Amlodipine Besylate 5 Mg Tab) 5 mg PO BID [facility] Stop: 09/19/23 08:59 Last Admin: 09/06/23 09:13 Dose: 5 mg Aspirin (Aspirin 81 Mg Chew) 81 mg PO QPM [facility] Stop: 09/19/23 20:59 Last Admin: 09/05/23 21:02 Dose: 81 mg Atorvastatin Calcium (Atorvastatin 40 Mg Tab) 80 mg PO QPM [facility] Stop: 09/19/23 20:59 Last Admin: 09/05/23 21:02 Dose: 80 mg Bisacodyl (Bisacodyl 5 Mg Tabec) 5 mg PO DAILY PRN PRN Reason: Constipation Stop: 09/21/23 09:48 Bismuth Subsalicylate (Bismuth Subsalicylate Liqd 236 Ml) 15 ml PO PRN PRN PRN Reason: Loose Stool Stop: 09/19/23 02:53 Buspirone HCl (Buspirone 5 Mg Tab) 10 mg PO BID [facility] Stop: 09/22/23 20:59 Last Admin: 09/06/23 09:14 Dose: 10 mg Cefuroxime Axetil (Cefuroxime Axetil 500 Mg Tab) 500 mg PO BID [facility] Stop: 09/10/23 16:59 Last Admin: 09/06/23 09:13 Dose: 500 mg Clopidogrel Bisulfate (Clopidogrel Bisulfate 75 Mg Tab) 75 mg PO QAM [facility] Stop: 09/19/23 08:59 Last Admin: 09/06/23 09:14 Dose: 75 mg Docusate Sodium (Docusate Sodium 100 Mg Cap) 100 mg PO BID PRN PRN Reason: Constipation Stop: 09/24/23 20:59 Duloxetine HCl (Duloxetine Hcl 30 Mg Cap) 30 mg PO QAM [facility] Stop: 10/02/23 08:59 Last Admin: 09/06/23 09:16 Dose: 30 mg Hydroxyzine HCl (Hydroxyzine Hcl 25 Mg Tab) 25 mg PO HSZ PRN PRN Reason: Insomnia Stop: 09/19/23 02:53 Last Admin: 05/24/24 22:26 Dose: 25 mg Hydroxyzine HCl (Hydroxyzine Hcl 25 Mg Tab) 25 mg PO Q4H PRN PRN Reason: Anxiety Stop: 09/19/23 02:53 Last Admin: 09/05/23 23:26 Dose: 25 mg Ibuprofen (Ibuprofen 200 Mg Tab) 200 mg PO Q8H PRN PRN Reason: Pain or Fever Stop: 09/20/23 19:35 Last Admin: 09/06/23 07:03 Dose: 200 mg Lidocaine ([facility]oc[facility] 5% 1 Patch) [facility]: 09/21/23 09:59 Last Admin: 09/06/23 09:11 Dose: 1 patch Magnesium Hydroxide (Magnesium Hydroxide Susp 30 Ml Udc) 30 ml PO DAILY PRN PRN Reason: Constipation Stop: 09/19/23 02:53 Last Admin: 08/24/23 19:45 Dose: 30 ml Metformin HCl (Metformin Hcl 500 Mg Tab) 1,000 mg PO BIDM [facility] Stop: 09/19/23 08:59 Last Admin: 09/06/23 09:16 Dose: 1,000 mg Metoprolol Tartrate (Metoprolol Tartrate 50 Mg Tab) 50 mg PO BID [facility] Stop: 09/19/23 08:59 Last Admin: 09/06/23 09:17 Dose: 50 mg Miscellaneous (Remove Nicoderm Patch) 1 each N/A DAILY@0859 [facility] Stop: 09/19/23 08:58 Last Admin: 09/06/23 09:16 Dose: 1 each Miscellaneous (Remove Lidoderm Patch) 1 each N/A DAILY@2100 [facility] Stop: 09/21/23 20:59 Last Admin: 09/05/23 22:26 Dose: 1 each Nicotine (Nicotine 7 Mg/24 Hr Tdsy) [facility] patch [facility] Stop: 09/19/23 08:59 Last Admin: 09/06/23 09:10 Dose: 1 patch Nicotine Polacrilex (Nicotine Polacrilex 2 Mg Gum) 1 piece MT PRN PRN PRN Reason: nicotine cravings Stop: 09/24/23 12:40 Last Admin: 08/30/23 20:30 Dose: 1 piece Olanzapine (Olanzapine 2.5 Mg Tab) 7.5 mg PO HS [facility] Stop: 09/28/23 21:59 Last Admin: 09/05/23 21:07 Dose: 7.5 mg Olanzapine (Olanzapine 2.5 Mg Tab) 2.5 mg PO BID PRN PRN Reason: Paranoia/Agitation Stop: 09/28/23 20:59 Last Admin: 09/02/23 14:06 Dose: 2.5 mg Pantoprazole Sodium (Pantoprazole 40 Mg Tab) 40 mg PO HS [facility] Stop: 09/19/23 21:59 Last Admin: 09/04/23 21:23 Dose: 40 mg Sodium Chloride (Sodium Chloride 0.65% Na Soln 45 Ml ([place])) 1 - 2 sprays NA PRN PRN PRN Reason: Nasal Dryness/Congestion Stop: 09/19/23 02:53 Valsartan (Valsartan 80 Mg Tab) 40 mg PO BID [facility] Stop: 09/19/23 08:59 Last Admin: 09/06/23 09:12 Dose: 40 mg Mental Health & Subst Abuse Tx Therapist Name of Therapist: N/A Rn Clinical Coordinator Name of Rn Clinical Coordinator: N/A (1) Psychosis Psychosis type: other Qualified Code(s): F28 - Other psychotic disorder not due to a substance or known physiological condition
[2023-09-06] MEDS: GABAPENTIN 100 MG CAP PO SCH (21:11)
[2023-09-07] MEDS: OLANZAPINE 2.5 MG TAB PO SCH (08:48)
--- NOTE | 2023-09-07 09:26 | Psychiatric Progress Note ---
Date of Service September 07, 2023 Impression / Recommendations Impression JAE HUERTA is a 63-year-old woman with a history of psychosis admitted initially on a 302 involuntary commitment, now converted to voluntary status, for psychosis and acting on delusional thoughts. Differential includes schizophrenia vs post-TBI induced psychosis vs delusional disorder vs mood disorder such as gi. 09/07/2023: Waxing and waning periods of delusions, paranoia but seems slightly less tangential today with morning addition of olanzapine. Gabapentin seems to be lessening some of her leg/back neuropathic pain. 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 (1) Psychosis: Continue treatment with Zyprexa (2) Diabetes mellitus type 2, uncontrolled: Continue current treatment. (3) Hyperlipidemia: Continue current treatment. (4) Hypertension: Continue current treatment. (5) Coronary artery disease: Continue current treatment. Plan 09/07/2023: -Continue current medications and tx plan 09/06/2023: -Increase olanzapine to 2.5mg qAM and 7.5mg HS -Start gabapentin 100mg TID for increased leg pain/back pain 09/02/23 Patient was irritable and paranoid today. This is different than her presentation over the last few days. We will continue to monitor. 09/01/23: we continued the duloxetine taper today. 08/31/23: I have discontinued the Risperidone because I want her to be on only one anti psychotic. I will continue to taper the duloxetine tomorrow. 08/29/2023: -Increase olanzapine to 7.5mg HS -Olanzapine 2.5mg BID prn for paranoia/agitation and risperidone if she refuses olanzapine (she seems to have developed a new preference for this) -Continue to taper duloxetine as tolerated 08/28/2023: -Continue current medications and tx plan 08/27/2023: -Continue olanzapine -Decrease Cymbalta to 60mg daily -EKG given her report of history of cardiac event with atypical symptoms 08/26/2023: -Discontinue risperidone -Start olanzapine 5mg HS 08/25/2023: Continue current medications and tx plan. Change colace to prn given loose stool this AM. 08/24/2023: Increase risperidone to 0.5mg qAM & 1 mg HS. May need to consider tapering Cymbalta but will hold off for now. Elopement precautions. 08/23/2023: -Discontinue abilify -Start risperidone 1mg HS -Increase buspar to 10mg BID -Discontinue Wellbutrin -Continue Cymbalta -Fasting lipid panel in AM 08/22/2023: Continue home Cymbalta Buspar Wellbutrin. Increase Abilify to 5mg QAM and 5mg HS. Decrease Wellbutrin to 150mg QD. Encourage fluid intake. Working with social work to provide appropriate outpatient resources post discharge. Colace 100mg BID started. Lidocaine patch 5% QD for low back pain started. Ibuprofen 200mg Q8hr PRN for pain started. 08/21/2023: Continue home Cymbalta Buspar Wellbutrin. Continue Abilify 5 mg at bedtime. Encourage fluid intake. Working with social work to provide appropriate outpatient resources post discharge. BG checks daily. Inventory Assets Strengths: housing, trusts PCP Needs: additional services, medication management, psychiatric follow-up Suicide Risk Level Suicide Risk Level: Moderate (q15 min suicide checks) (denies SI but with ongoing psychosis) Risk Factors Assessment : Yes Do You Have Access To A Gun?: No Mental Health Diagnoses: Yes Previous Psychiatric Hospitalization: Yes Protective Factors Assessment Employed: No Stable Relationships: Yes Good Rapport with Provider: Yes (PCP) Interval History Identifying Information JAE HUERTA is a 63-year-old F who currently lives alone, has a history of psychosis, and was admitted on 08/20/23 01:01 on a 302 involuntary commitment for psychosis and acting on delusional thoughts. Chief Complaint "I'm happy today". Review of Systems Sleep Information Total Hours of Sleep: 5.30 Sleep Comments: HS Buspar, Zyprexa, and Neurontin with PRN Vistaril. Meal Information Percent Meal Consumed - Breakfast: 100 Percent Meal Consumed - Lunch: 100 Percent Meal Consumed - Dinner: 100 Nutrition Comment: sleeping Subjective Subjective Patient was seen & assessed and interval progress reviewed with treatment team nursing and social work. Last night thought a peer was going to sneak into her room after he stated "see you later". Wonders if past peer on the unit may be stealing items from her home. Continues to ask for frequent prns. Today reports feeling happy most of the morning which she credits to the new medication, the olanzapine AM dose. She feels her pain has lessened with the gabapentin and that the olanzapine helped to slow down her thoughts and concentrate better. She denies any side effects so far. Physical Exam Psychiatric Orientation: alert and oriented x 3 Eye Contact: good eye contact Motor Behavior: no abnormal motor movements Speech: normal rate/rhythm/volume of speech Affect: euthymic affect Mood: no depressed mood and no anxious mood Thought Process: + tangential thought process Thought Content: + paranoid, + delusions and + persecution Suicidal Thoughts: denies suicidal thoughts Homicidal Thoughts: denies homicidal thoughts Hallucinations: no auditory hallucinations Insight: + poor insight Judgment: + limited judgement Vital Signs (Past 24 Hours) Last Vital Signs Temp 36.5 C 09/07/23 06:40 Pulse 69 09/07/23 06:40 Resp 16 09/07/23 06:40 BP 125/77 09/07/23 06:42 Pulse Ox 96 09/07/23 06:40 O2 Del Method Room Air 09/07/23 06:40 Results & Data ([facility]) Laboratory Results Laboratory Results - last 24 hr 09/07/23 06:36 POC Glucose 160 H Current Inpatient Medications Current Inpatient Medications: Current Inpatient Medications Acetaminophen (Acetaminophen 325 Mg Tab) 650 mg PO Q4H PRN PRN Reason: Headache or Minor Fever Stop: 09/19/23 02:53 Last Admin: 09/07/23 07:43 Dose: 650 mg Al Hydrox/Mg Hydrox/Simethicone (Aluminum/Magnesium Susp 30 Ml Udc) 30 ml PO Q4H PRN PRN Reason: GI Upset Stop: 09/19/23 02:53 Last Admin: 08/20/23 16:00 Dose: 30 ml Amlodipine Besylate (Amlodipine Besylate 5 Mg Tab) 5 mg PO BID [facility] Stop: 09/19/23 08:59 Last Admin: 09/07/23 08:45 Dose: 5 mg Aspirin (Aspirin 81 Mg Chew) 81 mg PO QPM [facility] Stop: 09/19/23 20:59 Last Admin: 09/06/23 21:07 Dose: 81 mg Atorvastatin Calcium (Atorvastatin 40 Mg Tab) 80 mg PO QPM [facility] Stop: 09/19/23 20:59 Last Admin: 09/06/23 21:08 Dose: 80 mg Bisacodyl (Bisacodyl 5 Mg Tabec) 5 mg PO DAILY PRN PRN Reason: Constipation Stop: 09/21/23 09:48 Bismuth Subsalicylate (Bismuth Subsalicylate Liqd 236 Ml) 15 ml PO PRN PRN PRN Reason: Loose Stool Stop: 09/19/23 02:53 Buspirone HCl (Buspirone 5 Mg Tab) 10 mg PO BID [facility] Stop: 09/22/23 20:59 Last Admin: 09/07/23 08:46 Dose: 10 mg Cefuroxime Axetil (Cefuroxime Axetil 500 Mg Tab) 500 mg PO BID [facility] Stop: 09/10/23 16:59 Last Admin: 09/07/23 08:46 Dose: 500 mg Clopidogrel Bisulfate (Clopidogrel Bisulfate 75 Mg Tab) 75 mg PO QAM [facility] Stop: 09/19/23 08:59 Last Admin: 09/07/23 08:46 Dose: 75 mg Docusate Sodium (Docusate Sodium 100 Mg Cap) 100 mg PO BID PRN PRN Reason: Constipation Stop: 09/24/23 20:59 Duloxetine HCl (D[facility] Hcl 30 Mg Cap) [facility] Stop: 10/02/23 08:59 Last Admin: 09/07/23 08:46 Dose: 30 mg Gabapentin (Gabapentin 100 Mg Cap) 100 mg PO TID [facility] Stop: 10/06/23 20:59 Last Admin: 09/07/23 08:46 Dose: 100 mg Hydroxyzine HCl (Hydroxyzine Hcl 25 Mg Tab) 25 mg PO HSZ PRN PRN Reason: Insomnia Stop: 09/19/23 02:53 Last Admin: 09/06/23 21:23 Dose: 25 mg Hydroxyzine HCl (Hydroxyzine Hcl 25 Mg Tab) 25 mg PO Q4H PRN PRN Reason: Anxiety Stop: 09/19/23 02:53 Last Admin: 09/06/23 12:18 Dose: 25 mg Ibuprofen (Ibuprofen 200 Mg Tab) 200 mg PO Q8H PRN PRN Reason: Pain or Fever Stop: 09/20/23 19:35 Last Admin: 09/06/23 23:54 Dose: 200 mg Lidocaine (Lidocaine 5% 1 Patch) [facility] Stop: 09/21/23 09:59 Last Admin: 09/07/23 08:48 Dose: 1 patch Magnesium Hydroxide (Magnesium Hydroxide Susp 30 Ml Udc) 30 ml PO DAILY PRN PRN Reason: Constipation Stop: 09/19/23 02:53 Last Admin: 08/24/23 19:45 Dose: 30 ml Metformin HCl (Metformin Hcl 500 Mg Tab) [facility] [place] [place] Stop: 09/19/23 08:59 Last Admin: 09/06/23 21:09 Dose: 1,000 mg Metoprolol Tartrate (Metoprolol Tartrate 50 Mg Tab) 50 mg PO BID [facility] Stop: 09/19/23 08:59 Last Admin: 09/07/23 08:47 Dose: 50 mg Miscellaneous (Remove Nicoderm Patch) 1 each N/A DAILY@0859 [facility] Stop: 09/19/23 08:58 Last Admin: 09/07/23 08:48 Dose: 1 each Miscellaneous (Remove Lidoderm Patch) 1 each N/A DAILY@2100 [facility] Stop: 09/21/23 20:59 Last Admin: 09/06/23 21:16 Dose: 1 each Nicotine (Nicotine 7 Mg/24 Hr Tdsy) 1 patch TD [facility] Stop: 09/19/23 08:59 Last Admin: 09/07/23 08:49 Dose: 1 patch Nicotine Polacrilex (Nicotine Polacrilex 2 Mg Gum) 1 piece MT PRN PRN PRN Reason: nicotine cravings Stop: 09/24/23 12:40 Last Admin: 08/30/23 20:30 Dose: 1 piece Olanzapine (Olanzapine 2.5 Mg Tab) 7.5 mg PO [facility] Stop: 09/28/23 21:59 Last Admin: 09/06/23 21:09 Dose: 7.5 mg Olanzapine (Olanzapine 2.5 Mg Tab) 2.5 mg PO BID PRN PRN Reason: Paranoia/Agitation Stop: 09/28/23 20:59 Last Admin: 09/02/23 14:06 Dose: 2.5 mg Olanzapine (Olanzapine 2.5 Mg Tab) 2.5 mg PO [facility] Stop: 10/07/23 08:59 Last Admin: 09/07/23 08:48 Dose: 2.5 mg Pantoprazole Sodium (Pantoprazole 40 Mg Tab) 40 mg PO HS [facility] Stop: 09/19/23 21:59 Last Admin: 09/04/23 21:23 Dose: 40 mg Sodium Chloride (Sodium Chloride 0.65% Na Soln 45 Ml ([place])) 1 - 2 sprays NA PRN PRN PRN Reason: Nasal Dryness/Congestion Stop: 09/19/23 02:53 Valsartan (Valsartan 80 Mg Tab) 40 mg PO BID [facility] Stop: 09/19/23 08:59 Last Admin: 09/07/23 08:47 Dose: 40 mg Mental Health & Subst Abuse Tx Therapist Name of Therapist: N/A Cdl Bulk Driver Name of Cdl Bulk Driver: N/A (1) Psychosis Psychosis type: other Qualified Code(s): F28 - Other psychotic disorder not due to a substance or known physiological condition
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
[2023-09-08] MEDS: OLANZapine 10 MG TAB PO SCH (21:35)
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
--- NOTE | 2023-09-10 08:40 | Psychiatric Progress Note ---
Date of Service September 10, 2023 Impression / Recommendations Impression JAE HUERTA is a 63-year-old woman with a history of psychosis admitted initially on a 302 involuntary commitment, now converted to voluntary status, for psychosis and acting on delusional thoughts. Differential includes schizophrenia vs post-TBI induced psychosis vs delusional disorder vs mood disorder such as gi. 09/10/2023: Ongoing psychosis and tangential thought process, able to reality- test again a bit today, but typically doesn't persist. Signed ZARA for CM referral today. Agrees to reducing duloxetine dose due to concern for possible gi/activation. Slightly HTN this morning, but asymptomatic, denies any symptoms this afternoon. 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 (1) Psychosis: Continue treatment with Zyprexa (2) Diabetes mellitus type 2, uncontrolled: Continue current treatment. (3) Hyperlipidemia: Continue current treatment. (4) Hypertension: Continue current treatment. (5) Coronary artery disease: Continue current treatment. Plan 09/10/2023: -Decrease duloxetine to 20mg qd. 09/09/2023: -Increase olanzapine to 5mg qAM and 10mg HS 09/08/2023: -Increase olanzapine to 2.5mg qAM and 10mg HS 09/07/2023: -Continue current medications and tx plan 09/06/2023: -Increase olanzapine to 2.5mg qAM and 7.5mg HS -Start gabapentin 100mg TID for increased leg pain/back pain 09/02/23 Patient was irritable and paranoid today. This is different than her presentation over the last few days. We will continue to monitor. 09/01/23: we continued the duloxetine taper today. 08/31/23: I have discontinued the Risperidone because I want her to be on only one anti psychotic. I will continue to taper the duloxetine tomorrow. 08/29/2023: -Increase olanzapine to 7.5mg HS -Olanzapine 2.5mg BID prn for paranoia/agitation and risperidone if she refuses olanzapine (she seems to have developed a new preference for this) -Continue to taper duloxetine as tolerated 08/28/2023: -Continue current medications and tx plan 08/27/2023: -Continue olanzapine -Decrease Cymbalta to 60mg daily -EKG given her report of history of cardiac event with atypical symptoms 08/26/2023: -Discontinue risperidone -Start olanzapine 5mg HS 08/25/2023: Continue current medications and tx plan. Change colace to prn given loose stool this AM. 08/24/2023: Increase risperidone to 0.5mg qAM & 1 mg HS. May need to consider tapering Cymbalta but will hold off for now. Elopement precautions. 08/23/2023: -Discontinue abilify -Start risperidone 1mg HS -Increase buspar to 10mg BID -Discontinue Wellbutrin -Continue Cymbalta -Fasting lipid panel in AM 08/22/2023: Continue home Cymbalta Buspar Wellbutrin. Increase Abilify to 5mg QAM and 5mg HS. Decrease Wellbutrin to 150mg QD. Encourage fluid intake. Working with social work to provide appropriate outpatient resources post discharge. Colace 100mg BID started. Lidocaine patch 5% QD for low back pain started. Ibuprofen 200mg Q8hr PRN for pain started. 08/21/2023: Continue home Cymbalta Buspar Wellbutrin. Continue Abilify 5 mg at bedtime. Encourage fluid intake. Working with social work to provide appropriate outpatient resources post discharge. BG checks daily. Inventory Assets Strengths: housing, trusts PCP Needs: additional services, medication management, psychiatric follow-up Suicide Risk Level Suicide Risk Level: Moderate (q15 min suicide checks) (denies SI but with ongoing psychosis) Risk Factors Assessment : Yes Do You Have Access To A Gun?: No Mental Health Diagnoses: Yes Previous Psychiatric Hospitalization: Yes Protective Factors Assessment Employed: No Stable Relationships: Yes Good Rapport with Provider: Yes (PCP) Interval History Identifying Information JAE HUERTA is a 63-year-old F who currently lives alone, has a history of psych osis, and was admitted on 08/20/23 01:01 on a 302 involuntary commitment for psychosis and acting on delusional thoughts. Chief Complaint "I'm pretty good". Review of Systems Sleep Information Total Hours of Sleep: 6 Sleep Comments: PRN Vistaril with HS Buspar, Neurontin and Zyprexa Meal Information Percent Meal Consumed - Breakfast: 100 Percent Meal Consumed - Lunch: 100 Percent Meal Consumed - Dinner: 100 Nutrition Comment: sleeping Subjective Subjective Patient was seen & assessed and interval progress reviewed with treatment team nursing and social work. Slept for 6 hours. Reports good mood today. Feels gabapentin helps with her pain. She is agreeable to reducing duloxetine dose. No side effects from olanzapine. Wonders if her neighbor snuck onto the unit to cut her hair. Able to test this slightly, she agrees it could be possible her hair is shorter because it may be thinning or falling out instead of someone having cut it. Physical Exam Psychiatric Orientation: alert and oriented x 3 Eye Contact: good eye contact Motor Behavior: no abnormal motor movements Speech: normal rate/rhythm/volume of speech Affect: euthymic affect Mood: no depressed mood and no anxious mood Thought Process: + tangential thought process Thought Content: + paranoid, + delusions and + persecution Suicidal Thoughts: denies suicidal thoughts Homicidal Thoughts: denies homicidal thoughts Hallucinations: no auditory hallucinations Insight: + poor insight Judgment: + limited judgement Vital Signs (Past 24 Hours) Last Vital Signs Temp 36.4 C L 09/10/23 06:38 Pulse 62 09/10/23 06:38 Resp 16 09/10/23 06:38 BP 167/84 H 09/10/23 06:38 Pulse Ox 100 09/08/23 18:33 O2 Del Method Room Air 09/08/23 18:33 Results & Data ([facility]) Laboratory Results Laboratory Results - last 24 hr 09/10/23 07:40 POC Glucose 174 H Current Inpatient Medications Current Inpatient Medications: Current Inpatient Medications Acetaminophen (Acetaminophen 325 Mg Tab) 650 mg PO Q4H PRN PRN Reason: Headache or Minor Fever Stop: 09/19/23 02:53 Last Admin: 09/09/23 19:46 Dose: 650 mg Al Hydrox/Mg Hydrox/Simethicone (Aluminum/Magnesium Susp 30 Ml Udc) 30 ml PO Q4H PRN PRN Reason: GI Upset Stop: 09/19/23 02:53 Last Admin: 08/20/23 16:00 Dose: 30 ml Amlodipine Besylate (Amlodipine Besylate 5 Mg Tab) 5 mg PO BID [facility] Stop: 09/19/23 08:59 Last Admin: 09/09/23 21:38 Dose: 5 mg Aspirin (Aspirin 81 Mg Chew) 81 mg PO QPM [facility] Stop: 09/19/23 20:59 Last Admin: 09/09/23 21:41 Dose: 81 mg Atorvastatin Calcium (Atorvastatin 40 Mg Tab) 80 mg PO QPM [facility] Stop: 09/19/23 20:59 Last Admin: 09/09/23 21:38 Dose: 80 mg Bisacodyl (Bisacodyl 5 Mg Tabec) 5 mg PO DAILY PRN PRN Reason: Constipation Stop: 09/21/23 09:48 Bismuth Subsalicylate (Bismuth Subsalicylate Liqd 236 Ml) 15 ml PO PRN PRN PRN Reason: Loose Stool Stop: 09/19/23 02:53 Buspirone HCl (Buspirone 5 Mg Tab) 10 mg PO BID [facility] Stop: 09/22/23 20:59 Last Admin: 09/09/23 21:36 Dose: 10 mg Cefuroxime Axetil (Cefuroxime Axetil 500 Mg Tab) 500 mg PO BID [facility] Stop: 09/10/23 16:59 Last Admin: 09/09/23 21:39 Dose: 500 mg Clopidogrel Bisulfate (Clopidogrel Bisulfate 75 Mg Tab) 75 mg PO QAM [facility] Stop: 09/19/23 08:59 Last Admin: 09/09/23 08:46 Dose: 75 mg Docusate Sodium (Docusate Sodium 100 Mg Cap) 100 mg PO BID PRN PRN Reason: Constipation Stop: 09/24/23 20:59 Duloxetine HCl (Duloxetine Hcl 30 Mg Cap) 30 mg PO QAM [facility] Stop: 10/02/23 08:59 Last Admin: 09/09/23 08:47 Dose: 30 mg Gabapentin (Gabapentin 100 Mg Cap) 100 mg PO TID [facility] Stop: 10/06/23 20:59 Last Admin: 09/09/23 21:40 Dose: 100 mg Hydroxyzine HCl (Hydroxyzine Hcl 25 Mg Tab) 25 mg PO HSZ PRN PRN Reason: Insomnia Stop: 09/19/23 02:53 Last Admin: 09/09/23 23:40 Dose: 25 mg Hydroxyzine HCl (Hydroxyzine Hcl 25 Mg Tab) 25 mg PO Q4H PRN PRN Reason: Anxiety Stop: 09/19/23 02:53 Last Admin: 09/09/23 19:46 Dose: 25 mg Ibuprofen (Ibuprofen 200 Mg Tab) 200 mg PO Q8H PRN PRN Reason: Pain or Fever Stop: 09/20/23 19:35 Last Admin: 09/09/23 08:37 Dose: 200 mg Lidocaine (L[facility]ocaine 5% 1 Patch) [facility] Stop: 09/21/23 09:59 Last Admin: 09/09/23 08:48 Dose: 1 patch Magnesium Hydroxide (Magnesium Hydroxide Susp 30 Ml Udc) 30 ml PO DAILY PRN PRN Reason: Constipation Stop: 09/19/23 02:53 Last Admin: 08/24/23 19:45 Dose: 30 ml Metformin HCl (Metformin Hcl 500 Mg Tab) 1,000 mg PO BIDM [facility] Stop: 09/19/23 08:59 Last Admin: 09/09/23 17:39 Dose: 1,000 mg Metoprolol Tartrate (Metoprolol Tartrate 50 Mg Tab) 50 mg PO BID [facility] Stop: 09/19/23 08:59 Last Admin: 09/09/23 21:37 Dose: 50 mg Miscellaneous (Remove Lidoderm Patch) 1 each N/A DAILY@2100 [facility] Stop: 09/21/23 20:59 Last Admin: 09/09/23 21:41 Dose: 1 each Miscellaneous (Remove Nicoderm Patch) 1 each N/A DAILY@0859 [facility] Stop: 10/10/23 08:58 Nicotine (Nicotine 14 Mg/24 Hr Patch) 1 patch TD [facility] Stop: 10/10/23 08:59 Nicotine Polacrilex (Nicotine Polacrilex 2 Mg Gum) 1 piece MT PRN PRN PRN Reason: nicotine cravings Stop: 09/24/23 12:40 Last Admin: 08/30/23 20:30 Dose: 1 piece Olanzapine (Olanzapine 2.5 Mg Tab) 2.5 mg PO BID PRN PRN Reason: Paranoia/Agitation Stop: 09/28/23 20:59 Last Admin: 09/02/23 14:06 Dose: 2.5 mg Olanzapine (Olanzapine 10 Mg Tab) 10 mg PO [facility] Stop: 10/08/23 21:59 Last Admin: 09/09/23 21:37 Dose: 10 mg Olanzapine (Olanzapine 5 Mg Tablet) 5 mg PO [facility] Stop: 10/10/23 08:59 Pantoprazole Sodium (Pantoprazole 40 Mg Tab) 40 mg PO HS [facility] Stop: 09/19/23 21:59 Last Admin: 09/04/23 21:23 Dose: 40 mg Sodium Chloride (Sodium Chloride 0.65% Na Soln 45 Ml ([place])) 1 - 2 sprays NA PRN PRN PRN Reason: Nasal Dryness/Congestion Stop: 09/19/23 02:53 Valsartan (Valsartan 80 Mg Tab) 40 mg PO BID [facility] Stop: 09/19/23 08:59 Last Admin: 09/09/23 21:40 Dose: 40 mg Mental Health & Subst Abuse Tx Therapist Name of Therapist: N/A Life Specialist Name of Life Specialist: N/A (1) Psychosis Psychosis type: other Qualified Code(s): F28 - Other psychotic disorder not due to a substance or known physiological condition
[2023-09-10] MEDS: NICOTINE 14 MG/24 HR PATCH TD SCH (08:43)
[2023-09-10] MEDS: OLANZapine 5 MG TABLET PO SCH (08:45)
--- NOTE | 2023-09-11 08:59 | Psychiatric Progress Note ---
Date of Service September 11, 2023 Impression / Recommendations Impression JAE HUERTA is a 63-year-old woman with a history of psychosis admitted initially on a 302 involuntary commitment, now converted to voluntary status, for psychosis and acting on delusional thoughts. Differential includes schizophrenia vs post-TBI induced psychosis vs delusional disorder vs mood disorder such as gi. 09/11/2023: Ongoing psychosis and tangential thought process, reality-testing a bit more. Speaking less of bluetooth communication. Tolerating medication changes. Consents to clonidine trial for elevated BP and as additional option to help with suspected lifelong ADHD. Reviewed side effects including but not limited to low BP, syncope. 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 (1) Psychosis: Continue treatment with Zyprexa (2) Diabetes mellitus type 2, uncontrolled: Continue current treatment. (3) Hyperlipidemia: Continue current treatment. (4) Hypertension: Continue current treatment. (5) Coronary artery disease: Continue current treatment. Plan 09/11/2023: -Start clonidine 0.1mg HS 09/10/2023: -Decrease duloxetine to 20mg qd. 09/09/2023: -Increase olanzapine to 5mg qAM and 10mg HS 09/08/2023: -Increase olanzapine to 2.5mg qAM and 10mg HS 09/07/2023: -Continue current medications and tx plan 09/06/2023: -Increase olanzapine to 2.5mg qAM and 7.5mg HS -Start gabapentin 100mg TID for increased leg pain/back pain 09/02/23 Patient was irritable and paranoid today. This is different than her presentation over the last few days. We will continue to monitor. 09/01/23: we continued the duloxetine taper today. 08/31/23: I have discontinued the Risperidone because I want her to be on only one anti psychotic. I will continue to taper the duloxetine tomorrow. 08/29/2023: -Increase olanzapine to 7.5mg HS -Olanzapine 2.5mg BID prn for paranoia/agitation and risperidone if she refuses olanzapine (she seems to have developed a new preference for this) -Continue to taper duloxetine as tolerated 08/28/2023: -Continue current medications and tx plan 08/27/2023: -Continue olanzapine -Decrease Cymbalta to 60mg daily -EKG given her report of history of cardiac event with atypical symptoms 08/26/2023: -Discontinue risperidone -Start olanzapine 5mg HS 08/25/2023: Continue current medications and tx plan. Change colace to prn given loose stool this AM. 08/24/2023: Increase risperidone to 0.5mg qAM & 1 mg HS. May need to consider tapering Cymbalta but will hold off for now. Elopement precautions. 08/23/2023: -Discontinue abilify -Start risperidone 1mg HS -Increase buspar to 10mg BID -Discontinue Wellbutrin -Continue Cymbalta -Fasting lipid panel in AM 08/22/2023: Continue home Cymbalta Buspar Wellbutrin. Increase Abilify to 5mg QAM and 5mg HS. Decrease Wellbutrin to 150mg QD. Encourage fluid intake. Working with social work to provide appropriate outpatient resources post discharge. Colace 100mg BID started. Lidocaine patch 5% QD for low back pain started. Ibuprofen 200mg Q8hr PRN for pain started. 08/21/2023: Continue home Cymbalta Buspar Wellbutrin. Continue Abilify 5 mg at bedtime. Encourage fluid intake. Working with social work to provide appropriate outpatient resources post discharge. BG checks daily. Inventory Assets Strengths: housing, trusts PCP Needs: additional services, medication management, psychiatric follow-up Suicide Risk Level Suicide Risk Level: Moderate (q15 min suicide checks) (denies SI but with ongoing psychosis) Risk Factors Assessment : Yes Do You Have Access To A Gun?: No Mental Health Diagnoses: Yes Previous Psychiatric Hospitalization: Yes Protective Factors Assessment Employed: No Stable Relationships: Yes Good Rapport with Provider: Yes (PCP) Interval History Identifying Information JAE HUERTA is a 63-year-old F who currently lives alone, has a history of psychosis, and was admitted on 08/20/23 01:01 on a 302 involuntary commitment for psychosis and acting on delusional thoughts. Chief Complaint "Doing pretty good". Review of Systems Sleep Information Total Hours of Sleep: 6.30 Sleep Comments: HS Buspar, Zyprexa and Neurontin with PRN Vistaril Meal Information Percent Meal Consumed - Breakfast: 100 Percent Meal Consumed - Lunch: 100 Percent Meal Consumed - Dinner: 100 Nutrition Comment: sleeping Subjective Subjective Patient was seen & assessed and interval progress reviewed with treatment team nursing and social work. had a headache earlier but has resolved. Ongoing delusions about people sneaking into her home but agreeing that hair loss could have been due to factors other than her neighbor cutting it. notes she does have some memory issues with short term such as learning the rules to a new game but feels she picked up on it quickly by following her peers. Discussed her increased BP, she is agreeable to clonidine trial. Reviewed that she likely had ADHD as a child given high hyperactivity and talkativeness all her life. She wonders why police never offered her the option to file a PFA against her neighbor after hearing a peer discuss a PFA. Physical Exam Psychiatric Orientation: alert and oriented x 3 Eye Contact: good eye contact Motor Behavior: no abnormal motor movements Speech: normal rate/rhythm/volume of speech Affect: euthymic affect Mood: no depressed mood and no anxious mood Thought Process: + tangential thought process Thought Content: + paranoid, + delusions and + persecution Suicidal Thoughts: denies suicidal thoughts Homicidal Thoughts: denies homicidal thoughts Hallucinations: no auditory hallucinations Insight: + poor insight Judgment: + limited judgement Vital Signs (Past 24 Hours) Last Vital Signs Temp 36.1 C L 09/11/23 05:52 Pulse 66 09/11/23 05:53 Resp 16 09/11/23 05:52 BP 175/96 H 09/11/23 05:53 Pulse Ox 100 09/08/23 18:33 O2 Del Method Room Air 09/08/23 18:33 Results & Data ([facility]) Laboratory Results Laboratory Results - last 24 hr 09/11/23 06:17 POC Glucose 176 H Current Inpatient Medications Current Inpatient Medications: Current Inpatient Medications Acetaminophen (Acetaminophen 325 Mg Tab) 650 mg PO Q4H PRN PRN Reason: Headache or Minor Fever Stop: 09/19/23 02:53 Last Admin: 09/10/23 18:40 Dose: 650 mg Al Hydrox/Mg Hydrox/Simethicone (Aluminum/Magnesium Susp 30 Ml Udc) 30 ml PO Q4H PRN PRN Reason: GI Upset Stop: 09/19/23 02:53 Last Admin: 08/20/23 16:00 Dose: 30 ml Amlodipine Besylate (Amlodipine Besylate 5 Mg Tab) 5 mg PO BID [facility] Stop: 09/19/23 08:59 Last Admin: 09/10/23 21:07 Dose: 5 mg Aspirin (Aspirin 81 Mg Chew) 81 mg PO QPM [facility] Stop: 09/19/23 20:59 Last Admin: 09/10/23 21:06 Dose: 81 mg Atorvastatin Calcium (Atorvastatin 40 Mg Tab) 80 mg PO QPM [facility] Stop: 09/19/23 20:59 Last Admin: 09/10/23 21:07 Dose: 80 mg Bisacodyl (Bisacodyl 5 Mg Tabec) 5 mg PO DAILY PRN PRN Reason: Constipation Stop: 09/21/23 09:48 Bismuth Subsalicylate (Bismuth Subsalicylate Liqd 236 Ml) 15 ml PO PRN PRN PRN Reason: Loose Stool Stop: 09/19/23 02:53 Buspirone HCl (Buspirone 5 Mg Tab) 10 mg PO BID [facility] Stop: 09/22/23 20:59 Last Admin: 09/10/23 21:05 Dose: 10 mg Clopidogrel Bisulfate (Clopidogrel Bisulfate 75 Mg Tab) 75 mg PO QAM [facility] Stop: 09/19/23 08:59 Last Admin: 09/10/23 08:44 Dose: 75 mg Docusate Sodium (Docusate Sodium 100 Mg Cap) 100 mg PO BID PRN PRN Reason: Constipation Stop: 09/24/23 20:59 Duloxetine HCl (Duloxetine Hcl 20 Mg Cap) 20 mg PO QAM [facility] Stop: 10/11/23 08:59 Gabapentin (Gabapentin 100 Mg Cap) 100 mg PO TID [facility] Stop: 10/06/23 20:59 Last Admin: 09/10/23 21:06 Dose: 100 mg Hydroxyzine HCl (Hydroxyzine Hcl 25 Mg Tab) 25 mg PO HSZ PRN PRN Reason: Insomnia Stop: 09/19/23 02:53 Last Admin: 09/10/23 21:05 Dose: 25 mg Hydroxyzine HCl (Hydroxyzine Hcl 25 Mg Tab) 25 mg PO Q4H PRN PRN Reason: Anxiety Stop: 09/19/23 02:53 Last Admin: 09/10/23 12:02 Dose: 25 mg Ibuprofen (Ibuprofen 200 Mg Tab) 200 mg PO Q8H PRN PRN Reason: Pain or Fever Stop: 09/20/23 19:35 Last Admin: 09/10/23 12:01 Dose: 200 mg Lidocaine (Lidocaine 5% 1 Patch) [facility] [place] Stop: 09/21/23 09:59 Last Admin: 09/10/23 08:43 Dose: 1 patch Magnesium Hydroxide (Magnesium Hydroxide Susp 30 Ml Udc) 30 ml PO DAILY PRN PRN Reason: Constipation Stop: 09/19/23 02:53 Last Admin: 08/24/23 19:45 Dose: 30 ml Metformin HCl (Metformin Hcl 500 Mg Tab) 1,000 mg PO BIDM [facility] Stop: 09/19/23 08:59 Last Admin: 09/10/23 17:41 Dose: 1,000 mg Metoprolol Tartrate (Metoprolol Tartrate 50 Mg Tab) 50 mg PO BID [facility] Stop: 09/19/23 08:59 Last Admin: 09/10/23 21:06 Dose: 50 mg Miscellaneous (Remove Lidoderm Patch) 1 each N/A DAILY@2100 [facility] Stop: 09/21/23 20:59 Last Admin: 09/10/23 21:11 Dose: 1 each Miscellaneous (Remove Nicoderm Patch) 1 each N/A DAILY@0859 [facility] Stop: 10/10/23 08:58 Last Admin: 09/10/23 08:51 Dose: 1 each Multivitamins/Minerals (Cerovite Adv Formula Tab) [facility] tab [facility] [place] Stop: 10/11/23 08:59 Nicotine (Nicotine 14 Mg/24 Hr Patch) 1 patch TD [facility] Stop: 10/10/23 08:59 Last Admin: 09/10/23 08:43 Dose: 1 patch Nicotine Polacrilex (Nicotine Polacrilex 2 Mg Gum) 1 piece MT PRN PRN PRN Reason: nicotine cravings Stop: 09/24/23 12:40 Last Admin: 08/30/23 20:30 Dose: 1 piece Olanzapine (Olanzapine 2.5 Mg Tab) 2.5 mg PO BID PRN PRN Reason: Paranoia/Agitation Stop: 09/28/23 20:59 Last Admin: 09/02/23 14:06 Dose: 2.5 mg Olanzapine (Olanzapine 10 Mg Tab) 10 mg PO HS [facility] Stop: 10/08/23 21:59 Last Admin: 09/10/23 21:06 Dose: 10 mg Olanzapine (Olanzapine 5 Mg Tablet) 5 mg PO QAM [facility] Stop: 10/10/23 08:59 Last Admin: 09/10/23 08:45 Dose: 5 mg Pantoprazole Sodium (Pantoprazole 40 Mg Tab) 40 mg PO HS [facility] Stop: 09/19/23 21:59 Last Admin: 09/04/23 21:23 Dose: 40 mg Sodium Chloride (Sodium Chloride 0.65% Na Soln 45 Ml ([place])) 1 - 2 sprays NA PRN PRN PRN Reason: Nasal Dryness/Congestion Stop: 09/19/23 02:53 Valsartan (Valsartan 80 Mg Tab) 40 mg PO BID [facility] Stop: 09/19/23 08:59 Last Admin: 09/10/23 21:07 Dose: 40 mg Mental Health & Subst Abuse Tx Therapist Name of Therapist: N/A Front Counter Attendant Name of Front Counter Attendant: N/A (1) Psychosis Psychosis type: other Qualified Code(s): F28 - Other psychotic disorder not due to a substance or known physiological condition
[2023-09-11] MEDS: CEROVITE ADV FORMULA TAB PO SCH (09:10)
[2023-09-11] MEDS: DULoxetine HCL 20 MG CAP PO SCH (09:11)
[2023-09-11] MEDS: cloNIDine HCL 0.1 MG TAB PO SCH (21:14)
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
--- NOTE | 2023-09-12 19:21 | Magnetic Resonance Report ---
MRI OF THE BRAIN WITHOUT CONTRAST CLINICAL HISTORY: Neurocognitive workup. COMPARISON STUDY: Head CT July 08, 2023. TECHNIQUE: Utilizing a 1.5 Jaqueline magnet and dedicated coil, multiplanar, multiecho imaging of the bra in was performed without IV contrast. FINDINGS: There are no foci of restricted diffusion to suggest acute infarct. No acute intracranial h emorrhage, midline shift or mass effect is present. Ventricular system is unremarkable. Basal cistern s are patent. There are no extra-axial collections. Flow-voids for the major intracranial vessels are present. Small foci of signal abnormality within the left parietal and right temporal lobes favor sm all old infarcts. No intracranial masses are identified on unenhanced exam. Prominence of the extra-a xial spaces is due to mild atrophy. Scattered white matter T2 hyperintense foci favor mild small vess el disease. IMPRESSION: 1. No acute intracranial findings. 2. Foci of parenchymal signal abnormality within the left parietal and right temporal lobe suggestive of small old infarcts. 3. Mild atrophy and small vessel disease. ACT 112: Negative or not required by law. Electronically signed by: Zoltan Grady M.D. 09/12/2023 7:19 PM
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
--- NOTE | 2023-09-14 13:06 | Discharge Summary ---
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 Stable Lines: None Urinary Catheter: No Medications and DC Order Prescriptions: New clonidine HCl 0.1 mg Tablet 0.1 mg PO HS Qty: 30 0RF acetaminophen 325 mg Tablet 650 mg PO Q4H PRN (Reason: pain) Qty: 30 0RF olanzapine 5 mg Tablet 5 mg PO QAM Qty: 30 0RF olanzapine 10 mg Tablet 10 mg PO HS Qty: 30 0RF lidocaine 5 % Adhesive Patch,Medicated 1 patch transdermal QAM Qty: 30 0RF ibuprofen 200 mg Tablet 200 mg PO Q8H PRN (Reason: pain) Qty: 30 0RF aspirin [Children's Aspirin] 81 mg Tablet,Chewable 81 mg PO QPM Qty: 30 0RF hydroxyzine HCl 25 mg Tablet 25 mg PO Q4H PRN (Reason: Anxiety) Qty: 30 0RF gabapentin 100 mg Capsule 100 mg PO TID Qty: 90 0RF nicotine 7 mg/24 hr Patch 24 Hour 1 patch transdermal QAM Qty: 30 0RF duloxetine [Cymbalta] 20 mg Capsule,Delayed Release(Dr/Ec) 20 mg PO QAM Qty: 30 0RF Cerovite Senior 0.4 mg-300 mcg- 250 mcg Tablet 1 tab PO QAM Qty: 30 0RF buspirone 10 mg tablet 10 mg PO BID Qty: 60 0RF Continued nitroglycerin 0.4 mg tablet, sublingual 0.4 mg SL DIRECTED PRN (Reason: Chest Pain) Qty: 30 3RF Rx Instructions: PLACE ONE TABLET UNDER THE TONGUE EVERY 5 MINUTES FOR UP TO 3 DOSES OVER 15 MINUTES IF NEEDED FOR CHEST PAIN atorvastatin 80 mg tablet 80 mg PO QPM Qty: 90 3RF Patient Comments: Not taking metoprolol tartrate 50 mg tablet 50 mg PO BID 90 Days Qty: 180 1RF metformin 1,000 mg tablet 1,000 mg PO BID Qty: 180 1RF amlodipine 5 mg tablet 5 mg PO BID Qty: 180 2RF clopidogrel 75 mg tablet 75 mg PO QAM Qty: 30 5RF valsartan 40 mg tablet 40 mg PO BID Qty: 180 1RF Discharge Orders: Discharge Order (Routine); Ordered 09/14/23 Ordered By: Alejandro Piper Admission Data Admit Date/Time: 08/20/23 01:01 Attending Provider: Alejandro Piper Admit Provider: Alejandro Piper Primary Care Provider: Viktor Orozco Other Interventions: Discharge Summary Assessment (RN) Last Done: 09/14/23 12:01 PSY Interdisciplinary Discharge Planning Last Done: 09/14/23 12:03 Coding [place] [address] D/C day mgmt > 30 min Patient Type Established History Detailed Exam Detailed Medical Decision Making High Complexity Diagnoses Delusional disorder F22 Diabetes mellitus type 2, uncontrolled E11.65 Hyperlipidemia E78.5 Hypertension I10 Coronary artery disease I25.10 Time Spent (min) 60
== END 2023-09-14 13:20 | DRG 885 ==
LOC: ED 13:20 → SUATTDRO 08-20 01:01 → 3S 08-20 01:01

== ENCOUNTER 2024-02-25 11:50 | Inpatient (IN) ==
[2024-02-25 12:53] LABS: Basophils # (auto) 0.06 K/uL (0.00-0.20); Basophils % (auto) 0.5 %; Eosinophils # (auto) 0.13 K/uL (0.00-0.50); Eosinophils % (auto) 1.1 %; Hematocrit (blood only) 32.9 % (37.0-47.0); Hemoglobin 11.5 g/dl (12.0-16.0); Immature Granulocytes % (auto) 1.7 %; Lymphocytes # (auto) 0.85 K/uL (1.20-3.40); Lymphocytes % (auto) 7.2 %; Mean Corpuscular Hemoglobin 30.4 pg (25.0-34.0); Mean Platelet Volume 11.5 fL (9.4-12.4); Monocytes # (auto) 0.72 K/uL (0.11-0.59); Monocytes % (auto) 6.1 %; Neutrophils # (auto) 9.91 K/uL (1.40-6.50); Neutrophils % (auto) 83.4 %; Platelet Count 199 K/uL (130-400); RDW Coefficient of Variation 12.8 % (11.5-14.5); RDW Standard Deviation 40.5 fL (36.4-46.3); Red Blood Count 3.78 M/uL (4.20-5.40); White Blood Count 11.87 K/ul (4.8-10.8)
[2024-02-25] MEDS: SODIUM CHLORIDE 0.9% 1,000 ML IV ONE ×2 (13:09→14:03)
[2024-02-25 13:12] LABS: Albumin Globulin Ratio 1.1 (0.9-2); Albumin Level 3.4 gm/dl (3.4-5.0); BUN Creatinine Ratio 19.6 (10-20); Bilirubin,Total 0.5 mg/dl (0.2-1.0); Creatinine Clr Calc Pharmacy 22.1 ml/min; Globulin 3.1 gm/dl (2.5-4.0); Potassium 3.5 mmol/L (3.5-5.1); Total Protein 6.5 gm/dl (6.0-8.3)
--- NOTE | 2024-02-25 13:30 | Emergency Department Note ---
ED Visit Note I was consulted by the Advanced Practice Provider, Benita Najera PA-C. I personally made/approved the management plan and take responsibility for the patient management. I performed a substantive portion of the visit. This includes the aspects of: -History/Physical/Personally seeing the patient -MDM .
[2024-02-25 13:38] LABS: Appearance Urine Turbid (Clear); Bacteria Urine Automated 4+ (None Seen); Bilirubin Urine Negative (Negative); Blood Urine Trace (Negative); Color Urine Yellow; Epithelial Cell Urine Auto 0-2 /hpf (0-2); Glucose Urine UA Negative (Negative); Hyaline Casts Urine Present /lpf (None Presnt); Ketones Urine Negative (Negative); Leukocyte Esterase Urine 3+ (Negative); Nitrite Urine Negative (Negative); Protein Urine 2+ (Negative); RBC Urine Automated 0-2 /hpf (0-2); Specific Gravity Urine 1.034 (1.000-1.030); Urobilinogen Urine Negative (Negative); WBC Urine Automated >50 /hpf (0-5); White Blood Cell Casts Urine Present /lpf (None Prsent); pH Urine 5.5 (4.5-7.5)
[2024-02-25] MEDS: cefTRIAXone SODIUM 2,000 MG/50 ML BAG IV STA (14:03)
--- NOTE | 2024-02-25 14:16 | History & Physical Report ---
Date of Service February 25, 2024 Assessment & Plan (1) Ureteral calculus, left: Plan: Symptomatic with ALBA and UTI as below - CT showed left hydronephrosis secondary to a 0.7 cm mid left ureteral calculus - leukocytosis WBC (11.87) - Fluid resuscitation in ER with 2 L NSS - Urology consulted - Dr. Biggs to perform cystoscopy, left stent placement 02/24 at 1600 - continue with symptomatic tx/ pain meds - NPO - can advance diet as tolerated after procedure (2) ALBA (acute kidney injury): Plan: Secondary to left ureteral calculus and hypovolemia - Cr 2.55 - UA showing 2+ protein, trace blood, hyaline casts - given 2L NSS in ER - urine NA and CR pending - BMP in AM - Avoid nephrotoxic agents - continue to promote oral hydration post-operatively (3) Urinary tract infection: Plan: with above - UA showing hematuria, 3+ leukocyte esterase, greater than 50 WBC, hyaline cast, 4+ bacteria - Given 2G ceftriaxone IV in ER; continue on admission - Promote oral hydration - Urine culture pending - Blood cultures sent although patient does not meet SIRS criteria, leukocytosis and hypotension (qSofa) - lactate negative (4) Hyponatremia: Plan: Patient with NA of 129 likely secondary to diarrhea/hypovolemia - asymptomatic - Given 2 L NSS bolus in ER - Serum osmol, Urine NA, Urine Osmol pending - promote oral hydration after procedure - daily BMP (5) Hypertension: Plan: Hypotensive on admission - patient stated this has been chronic - Given 2 L NSS in ER - hold home blood pressure medications - losartan decreased to 25 mg 02/24, amlodipine BID, metoprolol - hold clonidine given hypotension - may need more IV fluids postoperatively if hypotension continues (6) Diabetes mellitus type 2, uncontrolled: Plan: Controlled on metformin at home - Most recent A1C 7.4 - SSI with target BSG range 110-140mg/dL, CF 25, carb ratio 10 - T2DM diet - BSG ACHS if eating, q6h if npo (7) Acute diarrhea: Plan: patient with watery diarrhea since 02/18 - no recent antibiotic use - Likely hypovolemic given poor p.o. intake and acute diarrhea; fluid resuscitation in ER - Promote oral hydration - Stool cultures pending Plan Chronic stable diagnoses: Schizophrenia/mood disorder - continue Abilify, duloxetine, hydroxyzine; hold clonidine given hypotension Fibromyalgia - Tylenol as needed HLD - continue statin, aspirin, and Plavix VTE ppx: SCDs Diet: advanced as tolerated after procedure, type II DM diet Code status: DNI/DNI Dispo: PCU/tele given hypotension Admission and Anticipated Discharge Date Admission Date: 02/25/24 History of Present Illness Chief Complaint: Abnormal labs Primary Care Provider: Viktor Orozco MD Patient is a 63-year-old female with a past medical history of hypertension, schizophrenia, type 2 diabetes, hyperlipidemia, and fibromyalgia. She presents today for abnormal labs and back pain. She was seen by her PCP yesterday who ordered a CT scan which showed left hydronephrosis secondary to a 0.7 cm mid left ureteral calculus. the patient was seen at bedside and stated that she has had left-sided abdominal pain that began on along with back pain that began on Friday. She endorses dysuria today. She has chronic urinary incontinence, but it has been worse for the past few days. She denies hematuria. She also has had watery diarrhea since , x 2 episodes daily, no recent antibiotic use. She does not stay well-hydrated at home, even with acute diarrhea, she drinks only marc Coke daily. Patient endorses dizziness and lightheadedness for the past year, she stated that she has been hypotensive, recent BP med changes. She also endorses chronic nausea with 2 episodes of vomiting this week. She stated that she has chronic dyspnea, cough, and rhinorrhea. Patient denies fever, chills, headache, vision changes, chest pain, hematuria, edema, numbness, tingling. She smokes a about 10 cigarettes a day, denies need for nicotine patch at this time. No alcohol use. She does smoke cannabis daily, possibly 4-8 "joints" a day. She lives at home alone, her sister checks in on her frequently. She denies past history of cancer, COPD, asthma, kidney disease. 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 She wishes to be DNR/DNI at this time. She stated that she is to use a BiPAP at home but has not in a long time. She took all of her home medications this morning including her newly reduced losartan dose. Urology to evaluate and take to procedure around 1600. Allergies Allergy/AdvReac Type Severity Reaction Status Date / Time fentanyl Allergy Unknown see notes Verified 02/25/24 15:17 below Home Medications Medication Instructions Recorded Confirmed Type metformin 1,000 mg tablet 1,000 mg PO BID #180 tabs 07/10/23 02/25/24 Rx acetaminophen 325 mg tablet 650 mg (2 x 325 mg) PO Q4H PRN 09/14/23 02/25/24 Rx pain #30 tabs aspirin 81 mg chewable tablet 81 mg PO QPM #30 tabs 09/14/23 02/25/24 Rx (Children's Aspirin) ibuprofen 200 mg tablet 200 mg PO Q8H PRN pain #30 tabs 09/14/23 02/25/24 Rx lidocaine 5 % topical patch 1 patch transdermal QAM #30 ea 09/14/23 02/25/24 Rx kjonehbe-quw-ukswf acid 0.4 1 tab PO QAM #30 tabs 09/14/23 02/25/24 Rx mg-lycopene 300 mcg-lutein 250 mcg tablet (Cerovite Senior) amlodipine 5 mg tablet 5 mg PO BID #180 tabs 12/08/23 02/25/24 Rx clonidine HCl 0.1 mg tablet 0.1 mg PO HS #90 tabs 12/08/23 02/25/24 Rx clopidogrel 75 mg tablet 75 mg PO QAM #90 tabs 12/08/23 02/25/24 Rx aripiprazole 5 mg tablet (Abilify) 2.5 mg PO DAILY 12/11/23 02/25/24 History atorvastatin 80 mg tablet 80 mg PO QPM #90 tabs 12/11/23 02/25/24 Rx metoprolol tartrate 50 mg tablet 50 mg PO BID 90 days #180 tabs 12/11/23 02/25/24 Rx nystatin 100,000 unit/gram topical 1 applic topical DAILY PRN skin 12/11/23 02/25/24 Rx powder folds #30 grams duloxetine 30 mg capsule,delayed 30 mg PO QAM 01/15/24 02/25/24 History release (Cymbalta) duloxetine 60 mg capsule,delayed 60 mg PO QAM 01/15/24 02/25/24 History release (Cymbalta) nitroglycerin 0.4 mg sublingual 0.4 mg sublingual DIRECTED PRN 01/15/24 02/25/24 Rx tablet Chest Pain #30 tabs blood sugar diagnostic (OneTouch #100 ea 01/28/24 02/24/24 Rx Verio test strips) blood-glucose meter (OneTouch #1 ea 01/28/24 02/24/24 Rx Verio Flex Start kit) lancets 33 gauge (OneTouch Delica #100 ea 01/30/24 02/24/24 Rx Plus Lancet) cyclobenzaprine 10 mg tablet 10 mg PO TID PRN muscle spasm #30 02/24/24 02/25/24 Rx tabs hydroxyzine HCl 25 mg tablet 25 mg PO Q4H PRN Anxiety #30 tabs 02/24/24 02/25/24 Rx losartan 50 mg tablet 25 mg (1/2 x 50 mg) PO DAILY #90 02/24/24 02/25/24 Rx tabs Past Med/Surg History Problem List (Updated 02/26/24 @ 08:05 by Gege Rosen PA-C) Bacteremia Acute diarrhea Hyponatremia Urinary tract infection ALBA (acute kidney injury) Ureteral calculus, left Delusional disorder Psychosis (Acute) Wound of left leg Fatty liver Diabetes mellitus type 2, uncontrolled (Acute) Hyperlipidemia (Acute) Hypertension (Acute) Coronary artery disease Vitamin B12 deficiency Venous insufficiency (Acute) Fibromyalgia (Acute) Arthritis (Acute) Lumbar pain Carpal tunnel syndrome of left wrist (Acute) Greater trochanteric bursitis Laryngopharyngeal reflux (Acute) Dyshidrotic eczema (Acute) History of PTCA Hemorrhoids Medical History Paranoid schizophrenia Schizophrenia Psychosis Delusions Encounter for pre-operative examination Diverticulitis ? PT NOT SURE Leg swelling left leg worse/right leg swells on occ Excessive daytime sleepiness on occassion History of anesthesia reaction wake up during anesthesia Gallstones Kidney stones will flare occ Anxiety Poor historian Abdominal tenderness reason for upcoming procedure History of high blood pressure High cholesterol Migraines Type 2 diabetes mellitus ? controlled Encounter for screening for malignant neoplasm of rectum Encounter for screening for malignant neoplasm of colon Dyspnea on exertion Abdominal pain Orthostatic lightheadedness Palpitations Hypomagnesemia Hypophosphatemia Atypical chest pain Radiculopathy, lumbar region Rectal pain Early satiety Nausea Abdominal pain Vitamin D deficiency Obstructive sleep apnea couldn't tolerate cpap History of renal stone Arteriosclerotic cardiovascular disease (ASCVD) ADD (attention deficit disorder) Surgical History H/O sinus surgery H/O esophagogastroduodenoscopy H/O colonoscopy H/O cardiac catheterization 2004...tx to gen/ 2 stents total. H/O: hysterectomy H/O oral surgery Family History Father Acute myocardial infarction Myocardial infarction Hypertension Mother , age 49 Cancer Sister Alcoholism Depression Unknown Breast cancer Grandmother (Paternal) Myocardial infarction Other Antithrombin 3 deficiency Denies family history of Ovarian cancer Prostate cancer Colonic polyp Social History Smoking Status: Current every day smoker Tobacco Type: Cigarettes Age Started Using Tobacco: 12; packs per day: 0.5; Cigarettes Per Day: 8-10; Second Hand Exposure: No; Do You Dip or Chew Tobacco: No; Hx Alcohol Use: No Hx Substance Use: Yes Non-Prescribed Medications: Marijuana Last Used Substance: Just Prior to Arrival Last Used Substance Other:: this morning Substance Use Type Other:: LAST USE YESTERDAY 10/09/22 (ADVISED NPO) Preferred Language: Yoruba Communication Ability: Effective Visual Impairment: No Limitations Hearing Ability: Normal Tactical/Mobile Watch Officer Required: No Beliefs That Will Affect Care: None marital status: Single Current Living Situation: Alone current occupational status: disabled Other Information That Helps Us Care for You: No Feels Safe at Home: Yes Safety Concerns: Feels Safe At This Time Childhood Exposure to Second-Hand Smoke: No Dental Care, Regularly: No Physical Activity Frequency: 1-2 Times per Week Seatbelt Use: always Sunscreen Use: No Gender Identity: Female Assistive Devices: Glasses Review of Systems Review of Systems: see HPI Physical Exam Physical Exam: The patient is awake, alert and oriented 3, well developed and well nourished, normocephalic and atraumatic, in no acute distress. Non-toxic appearing. HEENT- EOMI, mucous membranes moist. Hearing grossly intact. Heart-normal S1 and S2. No murmurs, rubs or gallops. Lungs-clear bilaterally, no respiratory distress, no accessory muscle use. Abdomen-normal bowel sounds and soft. No ascites noted. LUQ tender to palpation. No CVA tenderness. Extremities- no clubbing, cyanosis, or edema. Rheumatologic-normal range of motion. Psychiatric-normal affect. Results & Data Results & Data Vital Signs (Past 12 Hours) Vital Signs Temp Pulse Resp BP BP Pulse Ox O2 Del Method 02/25/24 13:14 76 02/25/24 13:01 98/57 L 02/25/24 12:03 36.8 C 78 12 97/65 L 98 Room Air Code Status & VTE Plan Code Status DNR/DNI VTE Prophylaxis Plan VTE Prophylaxis will be ordered: Yes Supervising Physician Co-Signing Physician Notes I personally saw and examined the patient. I independently reviewed the labs, EKG, imaging, problem list, medication list, past medical history and family history. I verified all andrew points and agree with Justa Ramos PA-C with the following exceptions and/or additions: 63 year old female presents to the ER with left ureterolithiasis picked up on outpatient CT. She reports abdominal/flank pain for the last week O/E A&Ox3, HS RRR, no murmurs, Chest CTAB, Abdo left abdominal and suprapubic tenderness, mild left CVA tenderness A/P Ureterolithiasis - management per urology, planning on ureteral stent Infected stone - IV ceftriaxone pending urine and blood ALBA - suspect pre-renal due to hypotension in addition to post renal with ureterolithiasis, hold anti-hypertensives, continue IV NSS overnight given concurrent hyponatremia PG Care Time/CCT Total # of Minutes Spent Total Time Spent with Patient: Total time spent is greater than 50% in coordination of care (as documented) at patient's floor/unit and/or counseling patient: Coding Level of Care Code 75959 INT INP/OBS CARE 375MIN Diagnoses Ureteral calculus, left N20.1 ALBA (acute kidney injury) N17.9 Urinary tract infection N39.0 Hyponatremia E87.1 Hypertension I10 Diabetes mellitus type 2, uncontrolled E11.65 Acute diarrhea R19.7
--- NOTE | 2024-02-25 14:52 | Emergency Department Note ---
ED Provider Note History of Present Illness Chief Complaint: Abnormal Labs/Diagnostic Testing Stated Complaint: KIDNEY ISSUES, ABN LABS Time Seen by Provider: 02/25/24 12:09 Source: patient Mode of arrival: ambulatory Limitations: no limitations This patient is a 63-year-old female who presents to the emergency department for evaluation of an abnormal CT scan yesterday. Patient reports that she had been having some left-sided back and side pain over the past 4 to 5 days. She saw her PCP yesterday and they ordered a CT scan which she had done. She received a call and was told to come to the ER due to a problem with her kidney. Patient is pain-free at this time but states that when the pain comes on it is quite severe. Denies urinary symptoms, vomiting or fevers. She denies any history of kidney stones. Home Medications Medication Instructions Recorded Confirmed Type metformin 1,000 mg tablet 1,000 mg PO BID #180 tabs 07/10/23 02/25/24 Rx acetaminophen 325 mg tablet 650 mg (2 x 325 mg) PO Q4H PRN 09/14/23 02/25/24 Rx pain #30 tabs aspirin 81 mg chewable tablet 81 mg PO QPM #30 tabs 09/14/23 02/25/24 Rx (Children's Aspirin) ibuprofen 200 mg tablet 200 mg PO Q8H PRN pain #30 tabs 09/14/23 02/25/24 Rx lidocaine 5 % topical patch 1 patch transdermal QAM #30 ea 09/14/23 02/25/24 Rx lkwcioqw-hek-ipzqj acid 0.4 1 tab PO QAM #30 tabs 09/14/23 02/25/24 Rx mg-lycopene 300 mcg-lutein 250 mcg tablet (Cerovite Senior) amlodipine 5 mg tablet 5 mg PO BID #180 tabs 12/08/23 02/25/24 Rx clonidine HCl 0.1 mg tablet 0.1 mg PO HS #90 tabs 12/08/23 02/25/24 Rx clopidogrel 75 mg tablet 75 mg PO QAM #90 tabs 12/08/23 02/25/24 Rx aripiprazole 5 mg tablet (Abilify) 2.5 mg PO DAILY 12/11/23 02/25/24 History atorvastatin 80 mg tablet 80 mg PO QPM #90 tabs 12/11/23 02/25/24 Rx metoprolol tartrate 50 mg tablet 50 mg PO BID 90 days #180 tabs 12/11/23 02/25/24 Rx nystatin 100,000 unit/gram topical 1 applic topical DAILY PRN skin 12/11/23 02/25/24 Rx powder folds #30 grams duloxetine 30 mg capsule,delayed 30 mg PO QAM 01/15/24 02/25/24 History release (Cymbalta) duloxetine 60 mg capsule,delayed 60 mg PO QAM 01/15/24 02/25/24 History release (Cymbalta) nitroglycerin 0.4 mg sublingual 0.4 mg sublingual DIRECTED PRN 01/15/24 02/25/24 Rx tablet Chest Pain #30 tabs blood sugar diagnostic (OneTouch #100 ea 01/28/24 02/24/24 Rx Verio test strips) blood-glucose meter (OneTouch #1 ea 01/28/24 02/24/24 Rx Verio Flex Start kit) lancets 33 gauge (OneTouch Delica #100 ea 01/30/24 02/24/24 Rx Plus Lancet) cyclobenzaprine 10 mg tablet 10 mg PO TID PRN muscle spasm #30 02/24/24 02/25/24 Rx tabs hydroxyzine HCl 25 mg tablet 25 mg PO Q4H PRN Anxiety #30 tabs 02/24/24 02/25/24 Rx losartan 50 mg tablet 25 mg (1/2 x 50 mg) PO DAILY #90 02/24/24 02/25/24 Rx tabs Allergies Allergy/AdvReac Type Severity Reaction Status Date / Time fentanyl Allergy Unknown see notes Verified 02/25/24 15:17 below Past Med/Surg History Problem List Acute diarrhea Hyponatremia Urinary tract infection ALBA (acute kidney injury) Ureteral calculus, left Delusional disorder Psychosis (Acute) Wound of left leg Fatty liver Diabetes mellitus type 2, uncontrolled (Acute) Hyperlipidemia (Acute) Hypertension (Acute) Coronary artery disease Vitamin B12 deficiency Venous insufficiency (Acute) Fibromyalgia (Acute) Arthritis (Acute) Lumbar pain Carpal tunnel syndrome of left wrist (Acute) Greater trochanteric bursitis Laryngopharyngeal reflux (Acute) Dyshidrotic eczema (Acute) History of PTCA Hemorrhoids Medical History Paranoid schizophrenia Schizophrenia Psychosis Delusions Encounter for pre-operative examination Diverticulitis ? PT NOT SURE Leg swelling left leg worse/right leg swells on occ Excessive daytime sleepiness on occassion History of anesthesia reaction wake up during anesthesia Gallstones Kidney stones will flare occ Anxiety Poor historian Abdominal tenderness reason for upcoming procedure History of high blood pressure High cholesterol Migraines Type 2 diabetes mellitus ? controlled Encounter for screening for malignant neoplasm of rectum Encounter for screening for malignant neoplasm of colon Dyspnea on exertion Abdominal pain Orthostatic lightheadedness Palpitations Hypomagnesemia Hypophosphatemia Atypical chest pain Radiculopathy, lumbar region Rectal pain Early satiety Nausea Abdominal pain Vitamin D deficiency Obstructive sleep apnea couldn't tolerate cpap History of renal stone Arteriosclerotic cardiovascular disease (ASCVD) ADD (attention deficit disorder) Surgical History H/O sinus surgery H/O esophagogastroduodenoscopy H/O colonoscopy H/O cardiac catheterization 2004...tx to gen/ 2 stents total. H/O: hysterectomy H/O oral surgery Family History Father Acute myocardial infarction Myocardial infarction Hypertension Mother , age 49 Cancer Sister Alcoholism Depression Unknown Breast cancer Grandmother (Paternal) Myocardial infarction Other Antithrombin 3 deficiency Denies family history of Ovarian cancer Prostate cancer Colonic polyp Social History Smoking Status: Current every day smoker Tobacco Type: Cigarettes Age Started Using Tobacco: 12; packs per day: 0.5; Cigarettes Per Day: 2 PER DAY AVERAGE/ADVISED NPO; Second Hand Exposure: No; Do You Dip or Chew Tobacco: No; Hx Alcohol Use: No Preferred Language: Maori Communication Ability: Effective Visual Impairment: No Limitations Hearing Ability: Normal Hazardous Substances Engineer Required: No Beliefs That Will Affect Care: None marital status: Single Current Living Situation: Alone current occupational status: disabled Feels Safe at Home: Yes Childhood Exposure to Second-Hand Smoke: No Dental Care, Regularly: No Physical Activity Frequency: 1-2 Times per Week Seatbelt Use: always Sunscreen Use: No Gender Identity: Female Assistive Devices: Denture - Upper and Glasses Physical Exam Vital Signs Vital Signs - 24 hr 02/25/24 12:03 02/25/24 12:31 02/25/24 13:01 Temperature 36.8 C Temperature Source Temporal Artery Scan Pulse Rate 78 Pulse Rate [Apical] Pulse Rhythm [Apical] Pulse Strength [Apical] Respiratory Rate 12 Respiratory Effort / Characteristics Non-Labored Non-Labored Spontaneous Respiratory Depth Normal Normal Respiratory Pattern Blood Pressure 97/65 L Blood Pressure [Right Arm] 98/57 L Blood Pressure Mean 75 Blood Pressure Mean [Right Arm] 70 Blood Pressure Position [Right Arm] Pulse Oximetry 98 Oxygen Delivery Method Room Air Oxygen Flow Rate Sepsis Recent Fever Within 48 Hours No Sepsis New/Unexplained Change in Mental Status N/A Sepsis Action Taken by Nursing No Action Required 02/25/24 13:14 02/25/24 13:21 02/25/24 13:27 Temperature Temperature Source Pulse Rate 76 72 76 Pulse Rate [Apical] Pulse Rhythm [Apical] Pulse Strength [Apical] Respiratory Rate 13 23 Respiratory Effort / Characteristics Respiratory Depth Respiratory Pattern Blood Pressure Blood Pressure [Right Arm] Blood Pressure Mean Blood Pressure Mean [Right Arm] Blood Pressure Position [Right Arm] Pulse Oximetry Oxygen Delivery Method Oxygen Flow Rate Sepsis Recent Fever Within 48 Hours Sepsis New/Unexplained Change in Mental Status Sepsis Action Taken by Nursing 02/25/24 13:30 02/25/24 13:30 02/25/24 13:36 Temperature Temperature Source Pulse Rate 75 Pulse Rate [Apical] Pulse Rhythm [Apical] Pulse Strength [Apical] Respiratory Rate 21 Respiratory Effort / Characteristics Respiratory Depth Respiratory Pattern Blood Pressure 103/59 L 103/59 L Blood Pressure [Right Arm] Blood Pressure Mean 68 68 Blood Pressure Mean [Right Arm] Blood Pressure Position [Right Arm] Pulse Oximetry Oxygen Delivery Method Oxygen Flow Rate Sepsis Recent Fever Within 48 Hours Sepsis New/Unexplained Change in Mental Status Sepsis Action Taken by Nursing 02/25/24 13:51 02/25/24 14:00 02/25/24 14:00 Temperature Temperature Source Pulse Rate 75 73 Pulse Rate [Apical] Pulse Rhythm [Apical] Pulse Strength [Apical] Respiratory Rate 23 18 Respiratory Effort / Characteristics Respiratory Depth Respiratory Pattern Blood Pressure 89/60 L Blood Pressure [Right Arm] Blood Pressure Mean 69 Blood Pressure Mean [Right Arm] Blood Pressure Position [Right Arm] Pulse Oximetry Oxygen Delivery Method Oxygen Flow Rate Sepsis Recent Fever Within 48 Hours Sepsis New/Unexplained Change in Mental Status Sepsis Action Taken by Nursing 02/25/24 14:12 02/25/24 14:24 02/25/24 14:30 Temperature Temperature Source Pulse Rate 72 74 Pulse Rate [Apical] Pulse Rhythm [Apical] Pulse Strength [Apical] Respiratory Rate 21 16 Respiratory Effort / Characteristics Respiratory Depth Respiratory Pattern Blood Pressure 94/66 L Blood Pressure [Right Arm] Blood Pressure Mean 72 Blood Pressure Mean [Right Arm] Blood Pressure Position [Right Arm] Pulse Oximetry Oxygen Delivery Method Oxygen Flow Rate Sepsis Recent Fever Within 48 Hours Sepsis New/Unexplained Change in Mental Status Sepsis Action Taken by Nursing 02/25/24 15:30 02/25/24 16:07 02/25/24 16:59 Temperature 37.2 C 36.5 C Temperature Source Oral Temporal Artery Scan Pulse Rate Pulse Rate [Apical] 77 79 82 Pulse Rhythm [Apical] Regular Regular Pulse Strength [Apical] Normal Respiratory Rate 16 20 14 Respiratory Effort / Characteristics Non-Labored Non-Labored Spontaneous Non-Labored Spontaneous Respiratory Depth Normal Normal Normal Respiratory Pattern Regular Regular Regular Blood Pressure Blood Pressure [Right Arm] 105/64 104/64 98/59 L Blood Pressure Mean Blood Pressure Mean [Right Arm] 77 77 72 Blood Pressure Position [Right Arm] Semi-fowlers Semi-fowlers Pulse Oximetry 95 96 Oxygen Delivery Method Room Air Oxymask Oxygen Flow Rate 10 Sepsis Recent Fever Within 48 Hours Sepsis New/Unexplained Change in Mental Status Sepsis Action Taken by Nursing 02/25/24 17:05 02/25/24 17:15 02/25/24 17:25 Temperature 36.9 C Temperature Source Temporal Artery Scan Pulse Rate Pulse Rate [Apical] 80 77 76 Pulse Rhythm [Apical] Regular Regular Regular Pulse Strength [Apical] Normal Normal Normal Respiratory Rate 17 17 16 Respiratory Effort / Characteristics Non-Labored Spontaneous Non-Labored Spontaneous Non-Labored Spontaneous Respiratory Depth Normal Normal Normal Respiratory Pattern Regular Regular Regular Blood Pressure Blood Pressure [Right Arm] 97/60 L 101/63 111/68 Blood Pressure Mean Blood Pressure Mean [Right Arm] 72 75 82 Blood Pressure Position [Right Arm] Semi-fowlers Semi-fowlers Semi-fowlers Pulse Oximetry 98 97 94 Oxygen Delivery Method Oxymask Oxymask Room Air Oxygen Flow Rate 6 4 Sepsis Recent Fever Within 48 Hours Sepsis New/Unexplained Change in Mental Status Sepsis Action Taken by Nursing VITALS: Vitals are noted on the nurse's note and reviewed by myself. GENERAL: This is a 63-year-old female, in no acute distress. SKIN: The skin was without rashes. EYES: Pupils equal round and reactive to light and accommodation. MOUTH: Mucous membranes moist. NECK: Supple without nuchal rigidity. HEART: Regular rate and rhythm without murmurs gallops or rubs. LUNGS: Clear to auscultation bilaterally without wheezes, rales or rhonchi. ABDOMEN: Positive bowel sounds x 4. Soft, mild tenderness in the left upper quadrant. No guarding or rebound tenderness. No CVA tenderness. NEURO: Patient was alert and oriented to person place and time. Course Administered Medications Diatrizoate Meglumine (Diatrizoate Meglumine 30% 100ml Vial) 16 ml INSTIL UD JUSTIN Stop: 02/29/24 16:59 Last Admin: 02/25/24 16:47 Dose: 16 ml Documented By: [id number] Discontinued Medications Sodium Chloride (Nss) 1,000 mls @ 999 mls/hr IV .Q1H1M ONE Stop: 02/25/24 14:06 Last Infusion: 02/25/24 14:20 Dose: Infused Documented By: Admin: 02/25/24 13:09 Dose: 999 mls/hr Documented By: LAURA Ceftriaxone Sodium (Rocephin) 2,000 mg in 50 mls @ 100 mls/hr IV NOW STA Stop: 02/25/24 14:13 Last Infusion: 02/25/24 15:00 Dose: Infused Documented By: Admin: 02/25/24 14:03 Dose: 100 mls/hr Documented By: LAURA Sodium Chloride (Nss) 1,000 mls @ 999 mls/hr IV .Q1H1M ONE Stop: 02/25/24 14:46 Last Infusion: 02/25/24 15:00 Dose: Infused Documented By: Admin: 02/25/24 14:03 Dose: 999 mls/hr Documented By: LAURA Medical Decision Making Differential Diagnosis Differential diagnosis includes kidney stone, infected stone, UTI, pyelonephritis, ALBA, among others. Medical Records Attestation: I reviewed the patient's medical records. Additional Comments: CT scan performed yesterday: EXAM: CT Abdomen and Pelvis With Intravenous Contrast CLINICAL HISTORY: Reason for exam: R10.32 - Left lower quadrant pain. TECHNIQUE: Axial computed tomography images of the abdomen and pelvis with intravenous contrast. CTDI is 27.75 mGy and DLP is 1201.33 mGy-cm. Automated exposure control was utilized for the study. A dose lowering technique was utilized adhering to the principles of ALARA. CONTRAST: Patient received 90 ML OPTIRAY 320 of IV contrast COMPARISON: 09/06/2023 FINDINGS: Lung bases: Unremarkable. No mass. No consolidation. ABDOMEN: Liver: Unremarkable. No mass. Gallbladder and bile ducts: Unremarkable. No calcified stones. No ductal dilation. Pancreas: Unremarkable. No mass. No ductal dilation. Spleen: Unremarkable. No splenomegaly. Adrenals: Unremarkable. No mass. Kidneys and ureters: Left hydroureteronephrosis secondary to a 0.7 cm mid left renal calculus. Stomach and bowel: Diverticulosis without evidence of diverticulitis. No obstruction. PELVIS: Appendix: No findings to suggest acute appendicitis. Bladder: Unremarkable. No mass. Reproductive: Uterus is surgically absent. ABDOMEN and PELVIS: Intraperitoneal space: Unremarkable. No free air. No significant fluid collection. Bones/joints: Multilevel degenerative disease of the lower thoracic and lumbar spine. No acute fracture. No dislocation. Soft tissues: Unremarkable. Vasculature: Unremarkable. No abdominal aortic aneurysm. Lymph nodes: Unremarkable. No enlarged lymph nodes. IMPRESSION: Left-sided hydronephrosis secondary to a 0.7 cm mid left ureteral calculus. Electronically signed by: Troy Mcmillan MD Laboratory Data Attestation: I reviewed the patient's lab results. 02/25/24 12:30 02/25/24 12:30 Lab Results 02/25/24 02/25/24 02/25/24 Range/Units 12:30 12:51 14:00 WBC 11.87 H (4.8-10.8) K/ul RBC 3.78 L (4.20-5.40) M/uL Hgb 11.5 L (12.0-16.0) g/dl Hct 32.9 L (37.0-47.0) % MCV 87.0 (80.0-100.0) fL MCH 30.4 (25.0-34.0) pg MCHC 35.0 (32.0-36.0) g/dL RDW Std Deviation 40.5 (36.4-46.3) fL RDW Coeff of Stacie 12.8 (11.5-14.5) % Plt Count 199 (130-400) K/uL MPV 11.5 (9.4-12.4) fL Immature Gran % (Auto) 1.7 % Neut % (Auto) 83.4 % Lymph % (Auto) 7.2 % [place] % (Auto) 6.1 % Eos % (Auto) 1.1 % Baso % (Auto) 0.5 % Neut # (Auto) 9.91 H (1.40-6.50) K/uL Lymph # (Auto) 0.85 L (1.20-3.40) K/uL [place] # (Auto) 0.72 H (0.11-0.59) K/uL Eos # (Auto) 0.13 (0.00-0.50) K/uL Baso # (Auto) 0.06 (0.00-0.20) K/uL Immature Gran # (Auto) 0.20 (0.01-0.20) K/uL Sodium 129 L (136-145) mmol/L Potassium 3.5 (3.5-5.1) mmol/L Chloride 98 (98-107) mmol/L Carbon Dioxide 19 L (21-32) mmol/L Anion Gap 12 H (3-11) BUN 50 H (6-23) mg/dl Creatinine 2.55 H (0.6-1.2) mg/dl Est Cr Clr Drug Dosing 22.1 ml/min eGFR 20.33 BUN/Creatinine Ratio 19.6 (10-20) Glucose 271 H (70-99(Fasting)) mg/dl POC Glucose (70-99) mg/dl Lactate 1.8 (0.4-2.0) mmol/L Calcium 9.0 (8.6-10.3) mg/dl Total Bilirubin 0.5 (0.2-1.0) mg/dl AST 10 L (13-39) U/L ALT 10 (7-52) U/L Alkaline Phosphatase 76 (34-104) U/L Total Protein 6.5 (6.0-8.3) gm/dl Albumin 3.4 (3.4-5.0) gm/dl Globulin 3.1 (2.5-4.0) gm/dl Albumin/Globulin Ratio 1.1 (0.9-2) Urine Color Yellow Urine Appearance Turbid A (Clear) Urine pH 5.5 (4.5-7.5) Ur Specific Garvin 1.034 H (1.000-1.030) Urine Protein 2+ H (Negative) Urine Glucose (UA) Negative (Negative) Urine Ketones Negative (Negative) Urine Blood Trace H (Negative) Urine Nitrite Negative (Negative) Urine Bilirubin Negative (Negative) Urine Urobilinogen Negative (Negative) Ur Leukocyte Esterase 3+ H (Negative) Urine WBC (Auto) >50 H (0-5) /hpf Urine RBC (Auto) 0-2 (0-2) /hpf U Hyaline Cast (Auto) 11-20 H (0-2) /lpf U Epithel Cells (Auto) 0-2 (0-2) /hpf Urine Bacteria (Auto) 4+ H (None Seen) Hyaline Casts Present A (None Presnt) /lpf WBC Casts Present A (None Prsent) /lpf Urine Osmolality 332 L (500-800) mOsm/kg Ur Random Creatinine 160.2 mg/dl Ur Random Sodium 14 mmol/L Stl C. cayetanensis PCR (NotDetected) Stool Rotavirus A PCR (NotDetected) Stl Adenov F 40/41 PCR (NotDetected) Stool Astrovirus (PCR) (NotDetected) Stool Campylobacter PCR (NotDetected) Stl C. diff Tox B Gene (Neg) Stool Cryptosporidium PCR (NotDetected) Stl E.coli Shiga Tox PCR (NotDetected) Stl Enterotoxigenic E PCR (NotDetected) Stool EPEC (PCR) (NotDetected) Stool EAEC (PCR) (NotDetected) Stl E. histolytica PCR (NotDetected) Stool Giardia Lamblia PCR (NotDetected) Stool Salmonella PCR (NotDetected) Stool Sapovirus (PCR) (NotDetected) Stl P. shigelloides PCR (NotDetected) Stl Shigella/EIEC PCR (NotDetected) St Y.enterocolitica PCR (NotDetected) Stool Vibrio (PCR) (NotDetected) Stl Vibrio cholerae PCR (NotDetected) Stl Norovirus GI/GII PCR (NotDetected) 02/25/24 02/25/24 Range/Units 15:05 17:00 WBC (4.8-10.8) K/ul RBC (4.20-5.40) M/uL Hgb (12.0-16.0) g/dl Hct (37.0-47.0) % MCV (80.0-100.0) fL MCH (25.0-34.0) pg MCHC (32.0-36.0) g/dL RDW Std Deviation (36.4-46.3) fL RDW Coeff of Stacie (11.5-14.5) % Plt Count (130-400) K/uL MPV (9.4-12.4) fL Immature Gran % (Auto) % Neut % (Auto) % Lymph % (Auto) % [place] % (Auto) % Eos % (Auto) % Baso % (Auto) % Neut # (Auto) (1.40-6.50) K/uL Lymph # (Auto) (1.20-3.40) K/uL [place] # (Auto) (0.11-0.59) K/uL Eos # (Auto) (0.00-0.50) K/uL Baso # (Auto) (0.00-0.20) K/uL Immature Gran # (Auto) (0.01-0.20) K/uL Sodium (136-145) mmol/L Potassium (3.5-5.1) mmol/L Chloride (98-107) mmol/L Carbon Dioxide (21-32) mmol/L Anion Gap (3-11) BUN (6-23) mg/dl Creatinine (0.6-1.2) mg/dl Est Cr Clr Drug Dosing ml/min eGFR BUN/Creatinine Ratio (10-20) Glucose (70-99(Fasting)) mg/dl POC Glucose 165 H (70-99) mg/dl Lactate (0.4-2.0) mmol/L Calcium (8.6-10.3) mg/dl Total Bilirubin (0.2-1.0) mg/dl AST (13-39) U/L ALT (7-52) U/L Alkaline Phosphatase (34-104) U/L Total Protein (6.0-8.3) gm/dl Albumin (3.4-5.0) gm/dl Globulin (2.5-4.0) gm/dl Albumin/Globulin Ratio (0.9-2) Urine Color Urine Appearance (Clear) Urine pH (4.5-7.5) Ur Specific Garvin (1.000-1.030) Urine Protein (Negative) Urine Glucose (UA) (Negative) Urine Ketones (Negative) Urine Blood (Negative) Urine Nitrite (Negative) Urine Bilirubin (Negative) Urine Urobilinogen (Negative) Ur Leukocyte Esterase (Negative) Urine WBC (Auto) (0-5) /hpf Urine RBC (Auto) (0-2) /hpf U Hyaline Cast (Auto) (0-2) /lpf U Epithel Cells (Auto) (0-2) /hpf Urine Bacteria (Auto) (None Seen) Hyaline Casts (None Presnt) /lpf WBC Casts (None Prsent) /lpf Urine Osmolality (500-800) mOsm/kg Ur Random Creatinine mg/dl Ur Random Sodium mmol/L Stl C. cayetanensis PCR Not Detected (NotDetected) Stool Rotavirus A PCR Not Detected (NotDetected) Stl Adenov F 40/41 PCR Not Detected (NotDetected) Stool Astrovirus (PCR) Not Detected (NotDetected) Stool Campylobacter PCR Not Detected (NotDetected) Stl C. diff Tox B Gene Negative Cdiff Gene (Neg) Stool Cryptosporidium PCR Not Detected (NotDetected) Stl E.coli Shiga Tox PCR Not Detected (NotDetected) Stl Enterotoxigenic E PCR Not Detected (NotDetected) Stool EPEC (PCR) Not Detected (NotDetected) Stool EAEC (PCR) Not Detected (NotDetected) Stl E. histolytica PCR Not Detected (NotDetected) Stool Giardia Lamblia PCR Not Detected (NotDetected) Stool Salmonella PCR Not Detected (NotDetected) Stool Sapovirus (PCR) Not Detected (NotDetected) Stl P. shigelloides PCR Not Detected (NotDetected) Stl Shigella/EIEC PCR Not Detected (NotDetected) St Y.enterocolitica PCR Not Detected (NotDetected) Stool Vibrio (PCR) Not Detected (NotDetected) Stl Vibrio cholerae PCR Not Detected (NotDetected) Stl Norovirus GI/GII PCR Not Detected (NotDetected) MDM Narrative Continuous school bus monitor: Order was placed for continuous school bus monitor. Patient was placed on the school bus monitor. Patient was noted to be in normal sinus rhythm at an initial rate of 70 bpm. The patient is a 63-year-old female who presents today for evaluation of an abnormal CT scan done yesterday. I reviewed the CT and patient was found to have a 7 mm mid ureteral stone with hydronephrosis. She is currently not having any pain. Blood pressure slightly low, especially as patient is usually hypertensive. A total of 2 L fluids were ordered. Labs here show an acute kidney injury with creatinine of 2.55. Urinalysis does appear to be infected. Patient covered with ceftriaxone. I discussed with urology who will plan to take her to the OR. Case was also discussed with [facility] hospitalist service who agreed to evaluate the patient for admission. Discharge Plan Visit Data Chief Complaint: Abnormal Labs/Diagnostic Testing Stated Complaint: KIDNEY ISSUES, ABN LABS ED Provider: Viktor Vanegas ED Midlevel Provider: Benita Najera Patient Disposition: Admitted As Inpatient Discharge Instructions Interventions: ED Discharge Assessment Last Done: 02/25/24 16:20 Forms Stand Alone Forms: [facility] Prescriptions Prescriptions: No Action metformin 1,000 mg tablet 1,000 mg PO BID Qty: 180 1RF amlodipine 5 mg tablet 5 mg PO BID Qty: 180 1RF clonidine HCl 0.1 mg tablet 0.1 mg PO HS Qty: 90 1RF clopidogrel 75 mg tablet 75 mg PO QAM Qty: 90 1RF (DME) OneTouch Verio test strips Strip See Rx Instructions .Route Qty: 100 0RF Rx Instructions: As directed up to twice daily to check BS (DME) blood-glucose meter [OneTouch Verio Flex Start] Kit See Rx Instructions .Route Qty: 1 0RF Rx Instructions: As directed to check blood sugar daily (DME) lancets [OneTouch Delica Plus Lancet] 33 gauge misc See Rx Instructions .Route Qty: 100 1RF Rx Instructions: As directed to check BS cyclobenzaprine 10 mg tablet 10 mg PO TID PRN (Reason: muscle spasm) Qty: 30 0RF hydroxyzine HCl 25 mg tablet 25 mg PO Q4H PRN (Reason: Anxiety) Qty: 30 0RF aripiprazole [Abilify] 5 mg tablet 2.5 mg PO DAILY atorvastatin 80 mg tablet 80 mg PO QPM Qty: 90 3RF Patient Comments: Not taking metoprolol tartrate 50 mg tablet 50 mg PO BID 90 Days Qty: 180 1RF nystatin 100,000 unit/gram powder 1 applic topical DAILY PRN (Reason: skin folds) Qty: 30 0RF duloxetine [Cymbalta] 60 mg capsule,delayed release(DR/EC) 60 mg PO QAM Patient Comments: Takes along with the 30mg tablet for a total of 90mg daily Rx Instructions: Take 60mg w/ 30mg capsules to equal 90mg by mouth every morning duloxetine [Cymbalta] 30 mg capsule,delayed release(DR/EC) 30 mg PO QAM Patient Comments: Takes along with the 60mg tablet for a total of 90mg daily Rx Instructions: Take 30mg w/ 60mg capsules to equal 90mg by mouth every morning nitroglycerin 0.4 mg tablet, sublingual 0.4 mg SL DIRECTED PRN (Reason: Chest Pain) Qty: 30 3RF losartan 50 mg tablet 25 mg PO DAILY Qty: 90 1RF acetaminophen 325 mg Tablet 650 mg PO Q4H PRN (Reason: pain) Qty: 30 0RF lidocaine 5 % Adhesive Patch,Medicated 1 patch transdermal QAM Qty: 30 0RF ibuprofen 200 mg Tablet 200 mg PO Q8H PRN (Reason: pain) Qty: 30 0RF aspirin [Children's Aspirin] 81 mg Tablet,Chewable 81 mg PO QPM Qty: 30 0RF Cerovite Senior 0.4 mg-300 mcg- 250 mcg Tablet 1 tab PO QAM Qty: 30 0RF Referrals Referrals: Pro,Viktor Ramirez MD [Primary Care Provider] -
--- NOTE | 2024-02-25 15:58 | Anesthesiology Consultation ---
Date of Service February 25, 2024 Assessment & Plan Chart Review Chart Review: Acceptable Risk for Surgery and Patient NOT seen in Pre Admission Testing Consults Requested none ASA [id number] History Surgery Operation Date: 02/25/24 10:45 Proposed Procedures p Cystoscopy, Left Retrograde Pyelogram, Left Stent Placement - Jah Biggs MD Height/Weight Height: 5 ft 3 in Weight: 80.6 kg Allergies Allergy/AdvReac Type Severity Reaction Status Date / Time fentanyl Allergy Unknown see notes Verified 02/25/24 15:17 below Medications Home Medications Medication Instructions Recorded Confirmed Last Taken metformin 1,000 mg tablet 1,000 mg PO BID #180 tabs 07/10/23 02/25/24 02/25/24 acetaminophen 325 mg tablet 650 mg (2 x 325 mg) PO Q4H PRN 09/14/23 02/25/24 Unknown pain #30 tabs aspirin 81 mg chewable tablet 81 mg PO QPM #30 tabs 09/14/23 02/25/24 02/24/24 (Children's Aspirin) ibuprofen 200 mg tablet 200 mg PO Q8H PRN pain #30 tabs 09/14/23 02/25/24 Unknown lidocaine 5 % topical patch 1 patch transdermal QAM #30 ea 09/14/23 02/25/24 02/25/24 [id number]-rwb-qsmhi acid 0.4 1 tab PO QAM #30 tabs 09/14/23 02/25/24 02/25/24 mg-lycopene 300 mcg-lutein 250 mcg tablet (Cerovite Senior) amlodipine 5 mg tablet 5 mg PO BID #180 tabs 12/08/23 02/25/24 02/25/24 clonidine HCl 0.1 mg tablet 0.1 mg PO HS #90 tabs 12/08/23 02/25/24 02/24/24 clopidogrel 75 mg tablet 75 mg PO QAM #90 tabs 12/08/23 02/25/24 02/25/24 aripiprazole 5 mg tablet (Abilify) 2.5 mg PO DAILY 12/11/23 02/25/24 02/25/24 atorvastatin 80 mg tablet 80 mg PO QPM #90 tabs 12/11/23 02/25/24 02/24/24 metoprolol tartrate 50 mg tablet 50 mg PO BID 90 days #180 tabs 08/02/25/24 02/25/24 nystatin 100,000 unit/gram topical 1 applic topical DAILY PRN skin 12/11/23 02/25/24 Unknown powder folds #30 grams duloxetine 30 mg capsule,delayed 30 mg PO QAM 01/15/24 02/25/24 02/25/24 release (Cymbalta) duloxetine 60 mg capsule,delayed 60 mg PO QAM 01/15/24 02/25/24 02/25/24 release (Cymbalta) nitroglycerin 0.4 mg sublingual 0.4 mg sublingual DIRECTED PRN 01/15/24 02/25/24 Unknown tablet Chest Pain #30 tabs blood sugar diagnostic (OneTouch #100 ea 01/28/24 02/24/24 Unknown Verio test strips) blood-glucose meter (OneTouch #1 ea 01/28/24 02/24/24 Unknown Verio Flex Start kit) lancets 33 gauge (OneTouch Delica #100 ea 01/30/24 02/24/24 Unknown Plus Lancet) cyclobenzaprine 10 mg tablet 10 mg PO TID PRN muscle spasm #30 02/24/24 02/25/24 Unknown tabs hydroxyzine HCl 25 mg tablet 25 mg PO Q4H PRN Anxiety #30 tabs 02/24/24 02/25/24 Unknown losartan 50 mg tablet 25 mg (1/2 x 50 mg) PO DAILY #90 02/24/24 02/25/24 02/25/24 tabs Past Medical History Medical History Paranoid schizophrenia Schizophrenia Psychosis Delusions Encounter for pre-operative examination Diverticulitis ? PT NOT SURE Leg swelling left leg worse/right leg swells on occ Excessive daytime sleepiness on occassion History of anesthesia reaction wake up during anesthesia Gallstones Kidney stones will flare occ Anxiety Poor historian Abdominal tenderness reason for upcoming procedure History of high blood pressure High cholesterol Migraines Type 2 diabetes mellitus ? controlled Encounter for screening for malignant neoplasm of rectum Encounter for screening for malignant neoplasm of colon Dyspnea on exertion Abdominal pain Orthostatic lightheadedness Palpitations Hypomagnesemia Hypophosphatemia Atypical chest pain Radiculopathy, lumbar region Rectal pain Early satiety Nausea Abdominal pain Vitamin D deficiency Obstructive sleep apnea couldn't tolerate cpap History of renal stone Arteriosclerotic cardiovascular disease (ASCVD) ADD (attention deficit disorder) Past Family History Family History Father Acute myocardial infarction Myocardial infarction Hypertension Mother , age 49 Cancer Sister Alcoholism Depression Unknown Breast cancer Grandmother (Paternal) Myocardial infarction Other Antithrombin 3 deficiency Denies family history of Ovarian cancer Prostate cancer Colonic polyp Past Surgical History Surgical History H/O sinus surgery H/O esophagogastroduodenoscopy H/O colonoscopy H/O cardiac catheterization 2004...tx to gen/ 2 stents total. H/O: hysterectomy H/O oral surgery Social History Smoking Status: Current every day smoker tobacco type: cigarettes Smoking cigarettes per day: 2 PER DAY AVERAGE/ADVISED NPO Do You Dip or Chew Tobacco: No Hx Alcohol Use: No substance use type: marijuana Substance Use Type Other:: LAST USE YESTERDAY 10/09/22 (ADVISED NPO) Last Used Substance: Days (ago) Physical Exam Vital Signs Last Vital Signs Temp 36.8 C 02/25/24 12:03 Pulse 77 02/25/24 15:30 Resp 16 02/25/24 15:30 BP 105/64 02/25/24 15:30 Pulse Ox 98 02/25/24 12:03 O2 Del Method Room Air 02/25/24 12:03 Testing Laboratory Results 02/25/24 12:30 02/25/24 12:30 Urine Color Yellow 02/25/24 12:51 Urine Appearance Turbid (Clear) A 02/25/24 12:51 Urine pH 5.5 (4.5-7.5) 02/25/24 12:51 Ur Specific [place] 1.034 (1.000-1.030) H 02/25/24 12:51 Urine Protein 2+ (Negative) H 02/25/24 12:51 Urine Glucose (UA) Negative (Negative) 02/25/24 12:51 Urine Ketones Negative (Negative) 02/25/24 12:51 Urine Nitrite Negative (Negative) 02/25/24 12:51 Ur Leukocyte Esterase 3+ (Negative) H 02/25/24 12:51 Urine WBC (Auto) >50 /hpf (0-5) H 02/25/24 12:51 Urine RBC (Auto) 0-2 /hpf (0-2) 02/25/24 12:51 U Hyaline Cast (Auto) 11-20 /lpf (0-2) H 02/25/24 12:51 U Epithel Cells (Auto) 0-2 /hpf (0-2) 02/25/24 12:51 Urine Bacteria (Auto) 4+ (None Seen) H 02/25/24 12:51
--- NOTE | 2024-02-25 16:06 | Urology Consultation ---
Date of Consultation February 25, 2024 Assessment & Plan (1) Urinary tract infection: (2) Ureteral calculus, left: (3) ALBA (acute kidney injury): Plan 63-year-old female who presented to the emergency department due to left flank pain. CT scan showed a 7 mm left proximal obstructing ureteral calculus. She was afebrile and initially hypotensive but improved with resuscitation. Labs showed a white blood cell count of 11.8, creatinine of 2.55 up from a baseline of 1.2 and a urinalysis with 4+ bacteria. Given obstructing stone and concern for infection, recommended proceeding with cystoscopy, left retrograde pyelogram left ureteral stent placement Risk and benefits discussed. Consent obtained Patient marked. Already had antibiotics. History of Present Illness History of Present Illness 63-year-old female who presented to the emergency department due to left flank pain. CT scan showed a 7 mm left proximal obstructing ureteral calculus. She was afebrile and initially hypotensive but improved with resuscitation. Labs showed a white blood cell count of 11.8, creatinine of 2.55 up from a baseline of 1.2 and a urinalysis with 4+ bacteria. Allergies Allergy/AdvReac Type Severity Reaction Status Date / Time fentanyl Allergy Unknown see notes Verified 02/25/24 15:17 below Home Medications Medication Instructions Recorded Confirmed Type metformin 1,000 mg tablet 1,000 mg PO BID #180 tabs 07/10/23 02/25/24 Rx acetaminophen 325 mg tablet 650 mg (2 x 325 mg) PO Q4H PRN 09/14/23 02/25/24 Rx pain #30 tabs aspirin 81 mg chewable tablet 81 mg PO QPM #30 tabs 09/14/23 02/25/24 Rx (Children's Aspirin) ibuprofen 200 mg tablet 200 mg PO Q8H PRN pain #30 tabs 09/14/23 02/25/24 Rx lidocaine 5 % topical patch 1 patch transdermal QAM #30 ea 09/14/23 02/25/24 Rx gnirgjfi-ewb-sgwgg acid 0.4 1 tab PO QAM #30 tabs 09/14/23 02/25/24 Rx mg-lycopene 300 mcg-lutein 250 mcg tablet (Cerovite Senior) amlodipine 5 mg tablet 5 mg PO BID #180 tabs 12/08/23 02/25/24 Rx clonidine HCl 0.1 mg tablet 0.1 mg PO HS #90 tabs 12/08/23 02/25/24 Rx clopidogrel 75 mg tablet 75 mg PO QAM #90 tabs 12/08/23 02/25/24 Rx aripiprazole 5 mg tablet (Abilify) 2.5 mg PO DAILY 12/11/23 02/25/24 History atorvastatin 80 mg tablet 80 mg PO QPM #90 tabs 12/11/23 02/25/24 Rx metoprolol tartrate 50 mg tablet 50 mg PO BID 90 days #180 tabs 12/11/23 02/25/24 Rx nystatin 100,000 unit/gram topical 1 applic topical DAILY PRN skin 12/11/23 02/25/24 Rx powder folds #30 grams duloxetine 30 mg capsule,delayed 30 mg PO QAM 01/15/24 02/25/24 History release (Cymbalta) duloxetine 60 mg capsule,delayed 60 mg PO QAM 01/15/24 02/25/24 History release (Cymbalta) nitroglycerin 0.4 mg sublingual 0.4 mg sublingual DIRECTED PRN 01/15/24 02/25/24 Rx tablet Chest Pain #30 tabs blood sugar diagnostic (OneTouch #100 ea 01/28/24 02/24/24 Rx Verio test strips) blood-glucose meter (OneTouch #1 ea 01/28/24 02/24/24 Rx Verio Flex Start kit) lancets 33 gauge (OneTouch Delica #100 ea 01/30/24 02/24/24 Rx Plus Lancet) cyclobenzaprine 10 mg tablet 10 mg PO TID PRN muscle spasm #30 02/24/24 02/25/24 Rx tabs hydroxyzine HCl 25 mg tablet 25 mg PO Q4H PRN Anxiety #30 tabs 02/24/24 02/25/24 Rx losartan 50 mg tablet 25 mg (1/2 x 50 mg) PO DAILY #90 02/24/24 02/25/24 Rx tabs Patient History Medical History Paranoid schizophrenia Schizophrenia Psychosis Delusions Encounter for pre-operative examination Diverticulitis ? PT NOT SURE Leg swelling left leg worse/right leg swells on occ Excessive daytime sleepiness on occassion History of anesthesia reaction wake up during anesthesia Gallstones Kidney stones will flare occ Anxiety Poor historian Abdominal tenderness reason for upcoming procedure History of high blood pressure High cholesterol Migraines Type 2 diabetes mellitus ? controlled Encounter for screening for malignant neoplasm of rectum Encounter for screening for malignant neoplasm of colon Dyspnea on exertion Abdominal pain Orthostatic lightheadedness Palpitations Hypomagnesemia Hypophosphatemia Atypical chest pain Radiculopathy, lumbar region Rectal pain Early satiety Nausea Abdominal pain Vitamin D deficiency Obstructive sleep apnea couldn't tolerate cpap History of renal stone Arteriosclerotic cardiovascular disease (ASCVD) ADD (attention deficit disorder) Surgical History H/O sinus surgery H/O esophagogastroduodenoscopy H/O colonoscopy H/O cardiac catheterization 2004...tx to gen/ 2 stents total. H/O: hysterectomy H/O oral surgery Family History Father Acute myocardial infarction Myocardial infarction Hypertension Mother , age 49 Cancer Sister Alcoholism Depression Unknown Breast cancer Grandmother (Paternal) Myocardial infarction Other Antithrombin 3 deficiency Denies family history of Ovarian cancer Prostate cancer Colonic polyp Social History Smoking Status: Current every day smoker Tobacco Type: Cigarettes Age Started Using Tobacco: 12; packs per day: 0.5; Cigarettes Per Day: 2 PER DAY AVERAGE/ADVISED NPO; Second Hand Exposure: No; Do You Dip or Chew Tobacco: No; Hx Alcohol Use: No Preferred Language: Lithuanian Communication Ability: Effective Visual Impairment: No Limitations Hearing Ability: Normal Carrier Operator Required: No Beliefs That Will Affect Care: None marital status: Single Current Living Situation: Alone current occupational status: disabled Feels Safe at Home: Yes Childhood Exposure to Second-Hand Smoke: No Dental Care, Regularly: No Physical Activity Frequency: 1-2 Times per Week Seatbelt Use: always Sunscreen Use: No Gender Identity: Female Assistive Devices: Denture - Upper and Glasses Physical Exam Physical Exam: General: Alert and oriented, no acute distress HEENT: Normocephalic, mucous membranes moist Pulmonary: Nonlabored respirations Abdomen: Nondistended Extremities: Moves all 4 spontaneously Neuro: No gross deficits Skin: Warm, dry, no rashes noted Results & Data Vital Signs (Past 12 Hours) Vital Signs Temp Pulse Pulse Resp BP BP Pulse Ox 02/25/24 15:30 77 16 105/64 02/25/24 14:30 94/66 L 02/25/24 14:24 74 16 02/25/24 14:12 72 21 02/25/24 14:00 89/60 L 02/25/24 14:00 73 18 02/25/24 13:51 75 23 02/25/24 13:36 75 21 02/25/24 13:30 103/59 L 02/25/24 13:30 103/59 L 02/25/24 13:27 76 23 02/25/24 13:21 72 13 02/25/24 13:14 76 02/25/24 13:01 98/57 L 02/25/24 12:03 36.8 C 78 12 97/65 L 98 O2 Del Method 02/25/24 15:30 02/25/24 14:30 02/25/24 14:24 02/25/24 14:12 02/25/24 14:00 02/25/24 14:00 02/25/24 13:51 02/25/24 13:36 02/25/24 13:30 02/25/24 13:30 02/25/24 13:27 02/25/24 13:21 02/25/24 13:14 02/25/24 13:01 02/25/24 12:03 Room Air PG Care Time/CCT Total # of Minutes Spent Total Time Spent with Patient: Total time spent is greater than 50% in coordination of care (as documented) at patient's floor/unit and/or counseling patient: Coding Level of Care Code 63196 INT INP/OBS CARE 2/55MIN Diagnoses Urinary tract infection N39.0 Ureteral calculus, left N20.1 ALBA (acute kidney injury) N17.9
[2024-02-25] MEDS ORDERED: MIDAZOLAM HCL 1 MG/ML 2ML VIAL ONE (16:17)
[2024-02-25 16:19] LABS: Creatinine Urine Random 160.2 mg/dl
[2024-02-25] MEDS ORDERED: fentaNYL citrate PF 100 MCG/2 ML VIAL IV PRN (16:24)
[2024-02-25] MEDS ORDERED: ePHEDrine sulfate 50 MG/ML AMP IV PRN (16:24)
[2024-02-25] MEDS ORDERED: ONDANSETRON INJ 2 MG/ML 2 ML VIAL IV PRN (16:24)
[2024-02-25] MEDS ORDERED: ATROPINE SULFATE 0.1 MG/ML 10ML SYR IV PRN (16:24)
[2024-02-25 16:28] LABS: Adenovirus F 40/41 PCR Not Detected (NotDetected); Astrovirus PCR Not Detected (NotDetected); Campylobacter PCR Not Detected (NotDetected); Cryptosporidium PCR Not Detected (NotDetected); Cyclospora cayetanensis PCR Not Detected (NotDetected); Entamoeba histolytica PCR Not Detected (NotDetected); Enteroaggregative E.coli(EAEC) Not Detected (NotDetected); Enteropathogenic E.coli (EPEC) Not Detected (NotDetected); Enterotoxigenic E.coli (ETEC) Not Detected (NotDetected); Giardia lamblia PCR Not Detected (NotDetected); Norovirus GI/GII PCR Not Detected (NotDetected); Plesiomonas shigelloides PCR Not Detected (NotDetected); Rotavirus A PCR Not Detected (NotDetected); Salmonella PCR Not Detected (NotDetected); Sapovirus PCR Not Detected (NotDetected); Shiga-like Toxin E.coli (STEC) Not Detected (NotDetected); Shigella/Enteroinvasive E.coli Not Detected (NotDetected); Vibrio cholerae PCR Not Detected (NotDetected); Vibrio species PCR Not Detected (NotDetected); Yersinia enterocolitica PCR Not Detected (NotDetected)
[2024-02-25] MEDS ORDERED: fentaNYL citrate PF 100 MCG/2 ML VIAL ONE (16:32)
[2024-02-25] MEDS: DIATRIZOATE MEGLUMINE 30% 100ML VIAL INSTIL SCH (16:47)
--- NOTE | 2024-02-25 16:56 | Operative Report ---
PG Post Operative Report Pre & Post Diagnosis Operation Date: 02/25/24 10:45 Pre-Op Diagnosis: (1) Urinary tract infection, (2) Ureteral calculus, left, (3) ALBA (acute kidney injury) Post-Op Diagnosis: (1) Urinary tract infection, (2) Ureteral calculus, left, (3) ALBA (acute kidney injury) I identified the patient and participated in the time-out.: Yes Procedure Operation Date: 02/25/24 10:45 Actual Procedures p Cystoscopy, Left Retrograde Pyelogram with radiographic interpretation, Left Stent Placement(Left) - Jah Biggs MD Surgeon Jah Biggs MD Pony Edger None Estimated Blood Loss 0 Findings See Below Moderate left hydro. Stent in appropriate position. Specimens None Drains 6 Mexican by 24 cm left ureteral stent Anesthesia Type MAC Complications none Indications 63-year-old female with a left obstructing ureteral calculus and concern for UTI. Description of Procedure After informed consent was obtained, the patient was transported operative suite. MAC anesthesia was induced. The patient was placed in dorsal lithotomy position prepped and draped in a sterile fashion. They received preoperative Rocephin for antibiotic prophylaxis. An appropriate surgical timeout was performed. A 22 Mexican rigid scope was inserted per urethra into the bladder. Anderson cystoscopy revealed no stones or lesions. I turned my attention the left ureteral orifice and intubated this with a 5 Mexican open-ended catheter. A left retrograde pyelogram was shot which showed moderate left hydronephrosis. A sensor wire was advanced into the kidney and confirmed fluoroscopically. A 6 Mexican by 24 cm left ureteral stent was deployed with a good proximal coil in the renal pelvis and a good distal coil noted in the bladder. These were confirmed fluoroscopically and under direct visualization, respectively. The bladder was emptied and the scope was removed. This concluded the end of the case. All counts were correct at the end of the case. I was present, scrubbed, and actively participated for the entirety of the procedure. I attest to the content of the Intraoperative Record and any orders documented therein. Any exceptions are noted below.
--- NOTE | 2024-02-25 17:24 | Anesthesiology Progress Note ---
Date of Service February 25, 2024 Anesthesia Post Procedure Vital Signs Vital Signs: Temp Pulse Pulse Resp BP BP Pulse Ox 02/25/24 17:15 77 17 101/63 97 02/25/24 17:05 80 17 97/60 L 98 02/25/24 16:59 36.5 C 82 14 98/59 L 96 02/25/24 16:07 37.2 C 79 20 104/64 95 02/25/24 15:30 77 16 105/64 02/25/24 14:30 94/66 L 02/25/24 14:24 74 16 02/25/24 14:12 72 21 02/25/24 14:00 89/60 L 02/25/24 14:00 73 18 02/25/24 13:51 75 23 02/25/24 13:36 75 21 02/25/24 13:30 103/59 L 02/25/24 13:30 103/59 L 02/25/24 13:27 76 23 02/25/24 13:21 72 13 02/25/24 13:14 76 02/25/24 13:01 98/57 L 02/25/24 12:03 36.8 C 78 12 97/65 L 98 O2 Del Method O2 Flow Rate 02/25/24 17:15 Oxymask 4 02/25/24 17:05 Oxymask 6 02/25/24 16:59 Oxymask 10 02/25/24 16:07 Room Air 02/25/24 15:30 02/25/24 14:30 02/25/24 14:24 02/25/24 14:12 02/25/24 14:00 02/25/24 14:00 02/25/24 13:51 02/25/24 13:36 02/25/24 13:30 02/25/24 13:30 02/25/24 13:27 02/25/24 13:21 02/25/24 13:14 02/25/24 13:01 02/25/24 12:03 Room Air Pain Intensity Abdomen: Pain Intensity: 6 Transfer of Care Handoff Completed per policy Notes Mental Status: alert / awake / arousable Patient Amnestic to Procedure: Yes Nausea / Vomiting: adequately controlled Pain: adequately controlled Airway Patency, RR, SpO2: stable & adequate BP & HR: stable & adequate Hydration State: stable & adequate Anesthetic Complications: no major complications apparent and Pt Satisfied with anesthetic care
[2024-02-25] MEDS ORDERED: GLUCOSE 10 TAB/TUBE PO PRN (17:58)
[2024-02-25] MEDS ORDERED: CARBOHYDRATES FOR HYPOGLYCEMIA PO PRN (17:58)
[2024-02-25] MEDS ORDERED: GLUCOSE 40% GEL 15 GM TUBE PO PRN (17:58)
[2024-02-25] MEDS ORDERED: ACETAMINOPHEN 1,000 MG/100 ML VIAL IV PRN (17:58)
[2024-02-25] MEDS ORDERED: hydrOXYzine HCl 25 MG TAB PO PRN (17:58)
[2024-02-25] MEDS ORDERED: GLUCAGON FOR INJ 1 MG VIAL SQ PRN (17:58)
[2024-02-25] MEDS ORDERED: DEXTROSE 50% 50 ML SYRINGE IV PRN (17:58)
[2024-02-25] MEDS: INSULIN ASPART PER UNIT CHARGE SC SCH (18:31)
[2024-02-25] MEDS ORDERED: LACTATED RINGER'S 1,000 ML IV SCH (19:30)
[2024-02-25] MEDS: SODIUM CHLORIDE 0.9% 1,000 ML IV SCH (19:56)
[2024-02-25] MEDS: ASPIRIN 81 MG CHEW PO SCH (21:33)
[2024-02-25] MEDS: ATORVASTATIN 40 MG TAB PO SCH (21:33)
[2024-02-26 05:19] LABS: A calco-baum cmplx NotReported Not Detected (NotDetected); Bact fragilis Not Reported Not Detected (NotDetected); Blood Culture Id Panel See PCR Comment (NotDetected); C auris Not Reported Not Detected (NotDetected); CTX-M Resistant Gene Not Detected (NotDetected); Calbicans Not Reported Not Detected (NotDetected); Candida glabrata Not Reported Not Detected (NotDetected); Candida krusei Not Reported Not Detected (NotDetected); Cneoformans/gatti Not Reported Not Detected (NotDetected); Cparapsilosis Not Reported Not Detected (NotDetected); E cloacae compx Not Reported Not Detected (NotDetected); Efaecalis Not Reported Not Detected (NotDetected); Efaecium Not Reported Not Detected (NotDetected); Enterobacterales Not Reported DETECTED (NotDetected); Escherichia coli Not Reported Not Detected (NotDetected); H influenzae Not Reported Not Detected (NotDetected); IMP Resistant Gene Not Detected (NotDetected); K aerogenes Not Reported Not Detected (NotDetected); KPC Resistant Gene Not Detected (NotDetected); Koxytoca Not Reported Not Detected (NotDetected); Kpneumoniae grp Not Reported DETECTED (NotDetected); Lmonocyt Not Reported Not Detected (NotDetected); N meningitidis Not Reported Not Detected (NotDetected); NDM Resistant Gene Not Detected (NotDetected); OXA 48 Like Resistant Gene Not Detected (NotDetected); P aeruginosa Not Reported Not Detected (NotDetected); Proteus spp Not Reported Not Detected (NotDetected); Salmonella spp Not Reported Not Detected (NotDetected); Staph lugdunensis Not Reported Not Detected (NotDetected); Staph spp. Not Reported Not Detected (NotDetected); Staphaureus Not Reported Not Detected (NotDetected); Staphepi Not Reported Not Detected (NotDetected); Stenmaltophilia Not Reported Not Detected (NotDetected); Strep agal(GrpB) Not Reported Not Detected (NotDetected); Strep pneum Not Reported Not Detected (NotDetected); Strep pyog (GrpA) Not Reported Not Detected (NotDetected); Strep spp Not Reported Not Detected (NotDetected); VIM Resistant Gene Not Detected (NotDetected); mcr-1 Colistin Resistant Gene Not Detected (NotDetected)
[2024-02-26 05:26] LABS: Enterobacterales DETECTED (NotDetected); Klebsiella pneumoniae group DETECTED (NotDetected)
[2024-02-26] MEDS: CEFEPIME 2000MG 2,000 MG/20 ML SYR IV ONE (05:54)
[2024-02-26 06:38] LABS: Hematocrit (blood only) 27.6 % (37.0-47.0); Hemoglobin 9.4 g/dl (12.0-16.0); Mean Corpuscular Hemoglobin 30.3 pg (25.0-34.0); Mean Corpuscular Hgb Conc 34.1 g/dL (32.0-36.0); Mean Platelet Volume 11.2 fL (9.4-12.4); Platelet Count 180 K/uL (130-400); RDW Coefficient of Variation 13.1 % (11.5-14.5); RDW Standard Deviation 42.3 fL (36.4-46.3); White Blood Count 14.56 K/ul (4.8-10.8)
--- NOTE | 2024-02-26 06:50 | Fluoroscopy Report ---
FL retrograde includes kub CLINICAL HISTORY: LEFT STENTleft ureteral stent placement COMPARISON STUDY: CT 02/24/2024 FLUOROSCOPY TIME: 7.4 seconds FLUOROSCOPY IMAGES: 2 EXPOSURE DOSE: 2.51 mGy FINDINGS: Proximal portion of the left ureteral stent appears to be in satisfactory positioning. Mild dilation of the left renal collecting system. IMPRESSION: Fluoroscopic assistance as above. ACT 112: Negative or not required by law. Electronically signed by: Conrad Lakhani M.D. 02/26/2024 6:47 AM
[2024-02-26 07:01] LABS: Calcium 8.1 mg/dl (8.6-10.3); Creatinine Clr Calc Pharmacy 25.5 ml/min; Magnesium 1.8 mg/dl (1.7-2.4); Potassium 3.4 mmol/L (3.5-5.1)
--- NOTE | 2024-02-26 08:05 | Hospitalist Progress Note ---
Date of Service February 26, 2024 Assessment & Plan (1) Ureteral calculus, left: Plan: 63yo presented with back pain/abnormal labs ordered by PCP with CTAP noting LEFT hydronephrosis 2nd to 0.7cm mid L ureteral calculus. On admission, WBC 11.8k, Cr 2.55 , Na 129 Pt reports had been having left sided abdominal pain since along with back pain starting on Friday, associated with dysuria 02/24. Chronic urinary incontinence. ?infected stone Symptomatic with ALBA and UTI as below, also now BACTEREMIA s/p 2L NSS in ER along with 2g IV Rocephin Urology consulted s/p Cystoscopy, Left Retrograde Pyelogram with radiographic interpretation, Left Stent Placement(Left) - Jah Biggs MD evening 02/24 Continued on Ceftriaxone (noting blood cultures noted enterobacter species and overnight team switched to Cefepime) HOWEVER no ESBL reported or resistance as discussed with pharmacy and will S WITCH BACK TO CEFTRIAXONE 2gm IV DAILY FOR NOW Monitor final urine cx/sensitivities F/u blood cultures WBC 14k, however afebrile/feeling much better on exam. Na NORMALIZED BUN/CR 35/2.19 and had been continued on NSS @125cc/hr x 2 bags overnight into this morning. IMPROVEMENT in PO intake/appetite Losartan remains on HOLD, clonidine as well. BP stable, plan to resume her metoprolol 50mg PO BID for this evening and her amlodipine 5mg BID for AM 02/26 if BPs remaining stable but will hold off her losartan given ongoing elevation in Cr as well as clonidine to prevent hypotension Pain control, antiemetics as needed PT/OT consults placed (2) Bacteremia: Plan: suspected 2nd to UTI as above, but possible infected stone See plan as outlined, f/u blood cxs (3) ALBA (acute kidney injury): Plan: Suspected combination of pre-renal due (w/ hypotension 2nd to anti-HTN agents) as well as post-renal w/ obstructing stone Cr 2.5 on admission w/ baseline appearing closer to 1.1-1.2 recently however had elevations to 1.2-2.0 in June/July/August of this year to IVF hydration as above, urology consulted and s/p stent placement BUN/Cr 35/2.19 on AM labs and had been continued on NSS @ 125cc/hr overnight for additional 2L and encouraging PO intake (MUCH IMPROVED) and will continue to HOLD losartan/clonidine as above and plan to resume metoprolol this evening/amlodipine in AM Avoid nephrotoxins/renal dose meds as able BMP in AM (4) Urinary tract infection: Plan: As above, suspected source w/ stone for her bacteremia As above, has had multiple UTIs this past year, July, August x 2 all with klebsiella (pansensitive) and ?if 2nd to underlying stone. s/p cystoscopy as above, abx as outlined and will need f/u final urine cx/s and de-escalation as able (5) Hyponatremia: Plan: Na 129, initially suspected 2nd to hypovolemia/diarrhea prior to admission however suspect 2nd to infection/bacteremia/ALBA as above. Stool studies negative IVF hydration/abx and urology consulted as above Na NORMALIZED on am labs Hydration encouraged PO, will avoid further IVF BMP in AM (6) Hypertension: Plan: Hypotensive on admission , 2nd to above. 2L NSS bolus provided and continued addition 2l overnight for sepsis/bacteremia Losartan on hold due to ALBA as above. Clonidine remaining on hold to prevent hypotension for now but hopeful able to resume next 24 hrs. BP stable 113/74 at present time. PO hydration encouraged and will avoid additional IVF Monitor (7) Diabetes mellitus type 2, uncontrolled: Plan: Controlled on metformin at home with most recent A1c 7.4 BSG AC/HS , SSI while inpatient and BSGs acceptable and will continue to monitor monitor Crcl at dc but would avoid resumption of metformin unless back to baseline (8) Acute diarrhea: Plan: patient with watery diarrhea since 02/18, biofire/cdiff negative no diarrhea reported 02/25 but will monitor on abx Plan Chronic stable diagnoses: Schizophrenia/mood disorder - continue Abilify, duloxetine, hydroxyzine; hold clonidine given hypotension , mood stable and will monitor to resume pending serial BP measurements Fibromyalgia - Tylenol as needed, appears stable HLD - continue statin, aspirin, and Plavix VTE ppx: SCDs ordered, will add Heparin SQ given above while inpatient (avoiding Lovenox SQ given ALBA) Dispo: continued inpatient stay on IV antibiotics. Monitoring final culture/sensitivities. PT/OT consults placed Admission and Anticipated Discharge Date Admission Date: February 25, 2024 Supervising Physician Co-Signing Physician Notes The patient was not seen by me. The chart was reviewed. Case discussed with DEBBIE Sandoval. Agree with assessment and plan Subjective Evaluated this afternoon following lunch, sitting up in the chair. Reports feeling MUCH better than when she came in. Discussed suspect infected stone w/ her prior UTIs and possibly long standing infected stone which lead to bacteremia. She was unaware of blood culture results but discussed/reviewed. She felt EXTREMELY weak and wasn't really able to get up prior to admission. Feeling better but hasn't really been up out of bed yet. Discussed getting PT/OT evaluations and consideration for rehab pending her status inpatient vs HH if significant improvements. BPs stable, no lightheaded/dizziness. Renal function improving. Discussed resuming her metoprolol for this evening but slow reintroduction of others but HOLDING OFF her losartan for now to prevent worsened renal function. No fever/chills at present time, denies CP. Does have mild cough/some SOB but not hypoxic and 95% on RA. Discussed monitoring for PNA given CXR appearance, she reports mostly clear/white sputum. RN to provide incentive spirometer and will order mucinex as well. Questions/concerns addressed at this time. Physical Exam 2 Physical Exam: General: 63yo female sitting up in recliner, eating lunch, NAD, reports feeling MUCH better Head atraumatic, normocephalic, mmm, trachea midline Resp: diminished in the bases with faint crackles but no wheezing/rales, on rom air 95%, occasional non-productive cough but no tachypnea, able to speak in complete sentences CV: regular rate/rhythm (slight elevation to low 100s at times), no significant LE edema/calf tenderness, pulses present GI: +BS, soft/no overt tenderness ; ?L CVA tenderness (less) MSK/Neuro: generalized weakness but nonfocal, answering questions appropriately, NOT confused Psych: AOx3, cooperative/pleasant with exam Results & Data Results & Data Vital Signs (Past 12 Hours) Vital Signs Temp Pulse Pulse Resp BP Pulse Ox O2 Del Method 02/26/24 07:37 36.6 C 85 18 112/72 91 Nasal Cannula 02/26/24 03:32 37.0 C 88 18 117/66 95 Nasal Cannula 02/26/24 00:00 36.8 C 87 16 95/62 L 95 Nasal Cannula 02/25/24 22:00 Nasal Cannula 02/25/24 21:44 97 H 102/70 94 Nasal Cannula 02/25/24 21:40 99 H 02/25/24 21:00 97 H 19 99/62 L 02/25/24 20:00 37.4 C 98 H 22 98/65 L 93 Nasal Cannula O2 Flow Rate 02/26/24 07:37 02/26/24 03:32 2 02/26/24 00:00 2 02/25/24 22:00 2 02/25/24 21:44 2 02/25/24 21:40 02/25/24 21:00 02/25/24 20:00 2 Laboratory Results 02/26/24 05:46 02/26/24 05:46 Lactic 1.8 Mag 1.8 Diagnostic Findings Retrograde Pyelogram 02/25/24 00:00 FL retrograde includes kub CLINICAL HISTORY: LEFT STENTleft ureteral stent placement COMPARISON STUDY: CT 02/24/2024 FLUOROSCOPY TIME: 7.4 seconds FLUOROSCOPY IMAGES: 2 EXPOSURE DOSE: 2.51 mGy FINDINGS: Proximal portion of the left ureteral stent appears to be in satisfactory positioning. Mild dilation of the left renal collecting system. IMPRESSION: Fluoroscopic assistance as above. ACT 112: Negative or not required by law. Electronically signed by: Conrad Lakhani M.D. 02/26/2024 6:47 AM PG Care Time/CCT Total # of Minutes Spent Total Time Spent with Patient: Total time spent is greater than 50% in coordination of care (as documented) at patient's floor/unit and/or counseling patient: Coding Level of Care Code 58672 SUB INP/OBS CARE 3/50MIN Diagnoses Ureteral calculus, left N20.1 Bacteremia R78.81 ALBA (acute kidney injury) N17.9 Urinary tract infection N39.0 Hyponatremia E87.1 Hypertension I10 Diabetes mellitus type 2, uncontrolled E11.65 Acute diarrhea R19.7
[2024-02-26] MEDS: ARIPiprazole 5 MG TAB PO SCH (08:17)
[2024-02-26] MEDS: DULoxetine HCL 60 MG CAP PO SCH (08:18)
[2024-02-26] MEDS: CLOPIDOGREL BISULFATE 75 MG TAB PO SCH (08:18)
[2024-02-26] MEDS: DULoxetine HCL 30 MG CAP PO SCH (08:18)
[2024-02-26] MEDS: POTASSIUM CHLORIDE CRTAB 20 MEQ TABCR PO STA (08:21)
--- NOTE | 2024-02-26 08:49 | Urology Progress Note ---
Date of Service February 26, 2024 Assessment & Plan (1) Bacteremia: (2) ALBA (acute kidney injury): (3) Urinary tract infection: (4) Ureteral calculus, left: Plan 63-year-old female status post day 1 of a left ureteral stent placement due likelihood of an infection with a left proximal obstructing ureteral calcus. POD 1 s/p cystoscopy and left ureteral stent placement Presented to the ER on 02/24 with left flank pain, was initially hypotensive, concerns for UTI Tolerating the ureteral stent with minimal bother. Labs reviewed -WBCs 14.56, creatinine 2.19, hemoglobin 9.4 Preliminary -urine culture gram-negative bacilli. , blood cultures gram-negative bacilli. Currently on cefepime. Adjust antibiotics as indicated. Continue supportive care and monitoring. Continue antibiotics as prescribed. No plan for further urologic intervention during this admission. Will arrange outpatient follow-up with our service for definitive stone management after the infection has been treated. Urology will sign off. Admission and Anticipated Discharge Date Admission Date: February 25, 2024 Subjective Patient examined at bedside this morning She is resting comfortably in her chair No acute distress Denies pain, urinary frequency or urgency Handling stent appropriately States previous to hospitalization she used to wear depends for incontinence Review of Systems Constitutional: as per Subjective / HPI Genitourinary: as per Subjective / HPI Physical Exam Constitutional: well developed and well nourished; no acute distress Respiratory: normal respiratory effort and able to speak in complete sentences Musculoskeletal: Extremities: extremities normal to inspection Psychiatric: Orientation: alert and oriented x 3 Results & Data Vital Signs (Past 12 Hours) Vital Signs Temp Pulse Pulse Resp BP Pulse Ox O2 Del Method 02/26/24 07:37 36.6 C 85 18 112/72 91 Nasal Cannula 02/26/24 03:32 37.0 C 88 18 117/66 95 Nasal Cannula 02/26/24 00:00 36.8 C 87 16 95/62 L 95 Nasal Cannula 02/25/24 22:00 Nasal Cannula 02/25/24 21:44 97 H 102/70 94 Nasal Cannula 02/25/24 21:40 99 H 02/25/24 21:00 97 H 19 99/62 L O2 Flow Rate 02/26/24 07:37 02/26/24 03:32 2 02/26/24 00:00 2 11/13/24 22:00 2 02/25/24 21:44 2 02/25/24 21:40 02/25/24 21:00 PG Care Time/CCT Total # of Minutes Spent Total Time Spent with Patient: Total time spent is greater than 50% in coordination of care (as documented) at patient's floor/unit and/or counseling patient: Coding Level of Care Code 97691 SUB INP/OBS CARE 05/08MIN Diagnoses Bacteremia R78.81 ALBA (acute kidney injury) N17.9 Urinary tract infection N39.0 Ureteral calculus, left N20.1
[2024-02-26] MEDS ORDERED: cefTRIAXone SODIUM 2,000 MG/50 ML BAG IV SCH (09:00)
--- NOTE | 2024-02-26 09:39 | XRay Report ---
XR chest 1V portable HISTORY: 63 years-old Female sepsis, hypoxia COMPARISON: 10/23/2021 TECHNIQUE: AP view of the chest FINDINGS: Cardiomediastinal and hilar silhouettes are unchanged. Mild subsegmental left basilar opacities. No p neumothorax, large pleural effusion or overt pulmonary edema. Spondylitic spurring of the spine. Righ t rotator cuff calcific tendinosis. IMPRESSION: Mild left basilar opacities may represent atelectasis versus pneumonia. ACT 112: Negative or not required by law. The above report was generated using voice recognition software. It may contain grammatical, syntax o r spelling errors. Electronically signed by: Conrad Lakhani M.D. 02/26/2024 9:38 AM
[2024-02-26] MEDS ORDERED: PHENAZOPYRIDINE HCL 100 MG TAB PO PRN (14:55)
[2024-02-26] MEDS: cefTRIAXone SODIUM 2,000 MG/50 ML BAG IV SCH (15:38)
[2024-02-26] MEDS ORDERED: CEFEPIME 1000MG 1,000 MG/10 ML SYR IV SCH (18:00)
[2024-02-26] MEDS: ONDANSETRON INJ 2 MG/ML 2 ML VIAL IV PRN (20:03)
[2024-02-26] MEDS: guaiFENesin 600 MG TABCR PO SCH (20:04)
[2024-02-26] MEDS: METOPROLOL TARTRATE 50 MG TAB PO SCH (20:05)
[2024-02-26] MEDS: HEPARIN SOD 5,000 UNIT/0.5 ML VIAL SQ SCH (21:02)
[2024-02-26] MEDS: ACETAMINOPHEN 500 MG TAB PO PRN (21:25)
[2024-02-27 06:17] LABS: Hematocrit (blood only) 30.2 % (37.0-47.0); Hemoglobin 10.2 g/dl (12.0-16.0); Mean Corpuscular Hemoglobin 30.3 pg (25.0-34.0); Mean Corpuscular Hgb Conc 33.8 g/dL (32.0-36.0); Mean Corpuscular Volume 89.6 fL (80.0-100.0); Mean Platelet Volume 10.9 fL (9.4-12.4); Platelet Count 220 K/uL (130-400); RDW Coefficient of Variation 13.2 % (11.5-14.5); RDW Standard Deviation 43.3 fL (36.4-46.3); Red Blood Count 3.37 M/uL (4.20-5.40); White Blood Count 12.17 K/ul (4.8-10.8)
[2024-02-27 06:29] LABS: BUN Creatinine Ratio 14.9 (10-20); Calcium 8.7 mg/dl (8.6-10.3); Creatinine Clr Calc Pharmacy 31.9 ml/min; Magnesium 1.8 mg/dl (1.7-2.4); Potassium 3.5 mmol/L (3.5-5.1)
--- NOTE | 2024-02-27 07:49 | Hospitalist Progress Note ---
Date of Service February 27, 2024 Assessment & Plan (1) Bacteremia: Plan: 63yo presented with back pain/abnormal labs ordered by PCP with CTAP with reports she had been having left sided abdominal pain since along with back pain starting on Friday, associated with dysuria 02/24. Chronic urinary incontinence at baseline On admission, WBC 11.8k, Cr 2.55 , Na 129 CTAP noting LEFT hydronephrosis 2nd to 0.7cm mid L ureteral calculus. +blood/urine cx - bacteremia/sepsis suspected 2nd to UTI and underlying infected stone Symptomatic with ALBA w/ Cr 2.55 Provided 2L NSS , 2gm IV rocephin in ER and continued NSS @ 125/hr x 2 additional bags. Urology consulted s/p Cystoscopy, Left Retrograde Pyelogram with radiographic interpretation, Left Stent Placement(Left) - Jah Biggs MD evening 02/24 WBC improving at 12k Ceftriaxone IV continued, urine cx PANSENSITIVE, no need for cefepime Has been AFEBRILE Renal function improved on labs -- BUN/Cr 26/1.75. Improvement in PO intake/appetite and deferred further IVF and holding losartan, PO hydration encouraged. EKG for today to check QTC given psych medications to prevent QTC prolongation -- BORDERLINE, will monitor again in AM but may need to dc on Bactrim rather than Cipro given psych meds to prevent QTC prolongation given concerns for ongoing abx at dc for concerns for UNDERLYING INFECTED STONE until definitive treatment/lithotripsy and planning for EXTENDED COURSE abx at dc BP stable/improved, metoprolol resumed 02/25 and resumed amlodipine for this morning (02/26). Remains OFF losartan (possible DC) and will monitor to resume clonidine if needed but mood stable at present time Monitor labs/exam in AM, possible rehab vs pending PT/OT consults (not yet done) (2) Ureteral calculus, left: Plan: suspected cause for bacteremia/sepsis as above given ongoing UTIs and now w/ bactermia w/ obstructing stone. Tx as outlined (3) ALBA (acute kidney injury): Plan: As above - suspect combination of pre-renal due (w/ hypotension 2nd to anti-HTN agents) as well as post-renal w/ obstructing stone Cr 2.5 on admission w/ baseline appearing closer to 1.1-1.2 recently however had elevations to 1.2-2.0 in June/July/August of this year IVF hydration as above, no further to be provided and urology consulted s/p cysto and stent and tx as outlined RENAL FUNCTION IMPROVING, losartan to remain on hold as above (possible dc) and BPs stable/improved and further resumption of HTN meds as able. PO intake encouraged and improved Renal dose meds/avoid toxins and will continue to monitor renal function (4) Urinary tract infection: Plan: as above, 2nd to stone. tx as outlined (5) Hyponatremia: Plan: Na 129, initially suspected 2nd to hypovolemia/diarrhea prior to admission however suspect 2nd to infection/bacteremia/ALBA as above. Stool studies negative IVF hydration/abx and urology consulted as above Na NORMALIZED on am labs and staying stable and improvement in PO intake. No further IVF needed (6) Hypertension: Plan: Hypotensive on admission , 2nd to above. 2L NSS bolus provided and continued addition 2l overnight for sepsis/bacteremia Clonidine remaining on hold to prevent hypotension for now but hopeful able to resume next 24 hrs as above as resumed metoprolol 02/25 50mg BID, amlodpine for this 02/26 and probable resumption of clonidine either this evening vs AM but will remain OFF losartan due to ALBA as above and continue to monitor (7) Diabetes mellitus type 2, uncontrolled: Plan: Controlled on metformin at home with most recent A1c 7.4 BSG AC/HS , SSI while inpatient and BSGs acceptable and will continue to monitor monitor Crcl at dc but would avoid resumption of metformin unless back to baseline (8) Acute diarrhea: Plan: patient with watery diarrhea since 02/18, biofire/cdiff negative no diarrhea reported 02/25 but will monitor on abx -- is moving bowels but no significant increase. will add probiotic Plan Chronic stable diagnoses: Schizophrenia/mood disorder - continue Abilify, duloxetine, hydroxyzine; hold clonidine given hypotension, mood stable and will monitor to resume pending serial BP measurements for the morning Fibromyalgia - Tylenol as needed, appears stable HLD - continue statin, aspirin, and Plavix VTE ppx: SCDs ordered, Heparin SQ adedd BID (avoided lovenox w/ ALBA) Dispo: continued inpatient stay on IV abx, plan to switch to either Cipro vs Bactrim pending repeat EKG/QTC and will need extended course until f/u urology PT/OT consults pending to see if rehab needs at ut, CM to follow Admission and Anticipated Discharge Date Admission Date: February 25, 2024 Supervising Physician Co-Signing Physician Notes The patient was not seen by me. The chart was reviewed. Case discussed with DEBBIE Sandoval. Agree with assessment and plan Subjective Evaluated this morning, resting in bed. On 2L NC when sleeping/issues w/ CPAP and reporting not breathing with this in the past but ?if cats unhooked her tubing hose. Can continue. Discussed improvement in WBC/renal function. No pain reported/need for medication. Good appetite, moving her bowels. EKG obtained and discussed monitoring QTC for abx use at ut til Urology f/u as plans for longer abx til stone treated given concerns infected and leading to ongoing infections without treatment. Did not yet see therapy, CM to follow for recs if rehab recommended as she would be agreeable. No fever/chills, chest pain/shortness of breath. Moving bowels, discussed monitoring for diarrhea. Questions/concerns addressed at this time. Physical Exam 2 Physical Exam: General: 63yo female sitting up in bed, NAD, on 2L when sleeping this morning Head atraumatic, normocephalic, mmm, trachea midline Resp: diminished in the bases but IMPPROVED air entry, no wheezing/rales, on 2L w/ sleeping (not using CPAP) CV: regular rate/rhythm , rates improved/stable telemetry monitoring, no significant LE edema/calf tenderness, pulses present GI: +BS, soft/no overt tenderness ; no significant CVA tenderness MSK/Neuro: generalized weakness but nonfocal, answering questions appropriately, NOT confused Psych: AOx3, cooperative/pleasant with exam Results & Data Results & Data Vital Signs (Past 12 Hours) Vital Signs Temp Pulse Pulse Resp BP Pulse Ox O2 Del Method 02/27/24 07:11 36.6 C 77 17 138/85 96 Nasal Cannula 02/27/24 03:42 36.7 C 75 18 128/82 93 Nasal Cannula 02/26/24 23:24 36.7 C 73 18 146/84 H 97 Nasal Cannula 02/26/24 22:26 73 02/26/24 22:05 Room Air O2 Flow Rate 02/27/24 07:11 2 02/27/24 03:42 2.0 02/26/24 23:24 2.0 02/26/24 22:26 02/26/24 22:05 Laboratory Results 02/27/24 05:22 02/27/24 05:22 Mag 1.8 PG Care Time/CCT Total # of Minutes Spent Total Time Spent with Patient: Total time spent is greater than 50% in coordination of care (as documented) at patient's floor/unit and/or counseling patient: Coding Level of Care Code 62036 SUB INP/OBS CARE 3/50MIN Diagnoses Bacteremia R78.81 Ureteral calculus, left N20.1 ALBA (acute kidney injury) N17.9 Urinary tract infection N39.0 Hyponatremia E87.1 Hypertension I10 Diabetes mellitus type 2, uncontrolled E11.65 Acute diarrhea R19.7
[2024-02-27] MEDS: amLODIPine BESYLATE 5 MG TAB PO SCH (08:51)
--- NOTE | 2024-02-27 10:13 | Electrocardiogram Report ---
Test Reason : Blood Pressure : */* mmHG Vent. Rate : 69 BPM Atrial Rate : 69 BPM P-R Int : 202 ms QRS Dur : 116 ms QT Int : 424 ms P-R-T Axes : 35 -28 49 degrees QTcB Int : 454 ms Normal sinus rhythm Left ventricular hypertrophy with QRS widening Abnormal ECG When compared with ECG of 01-Sep-2023 11:26, QRS duration has increased Confirmed by Leobardo Hilliard ([id number]) on 02/27/2024 10:13:34 AM Referred By: REFERRED SELF Confirmed By: Leobardo Hilliard
[2024-02-28 06:48] LABS: Hematocrit (blood only) 31.1 % (37.0-47.0); Hemoglobin 10.8 g/dl (12.0-16.0); Mean Corpuscular Hemoglobin 30.5 pg (25.0-34.0); Mean Corpuscular Hgb Conc 34.7 g/dL (32.0-36.0); Mean Corpuscular Volume 87.9 fL (80.0-100.0); Mean Platelet Volume 10.6 fL (9.4-12.4); Platelet Count 283 K/uL (130-400); RDW Coefficient of Variation 12.9 % (11.5-14.5); RDW Standard Deviation 41.2 fL (36.4-46.3); Red Blood Count 3.54 M/uL (4.20-5.40); White Blood Count 11.35 K/ul (4.8-10.8)
[2024-02-28 07:11] LABS: BUN Creatinine Ratio 14.9 (10-20); Calcium 8.6 mg/dl (8.6-10.3); Creatinine Clr Calc Pharmacy 37.5 ml/min; Magnesium 1.6 mg/dl (1.7-2.4); Potassium 3.5 mmol/L (3.5-5.1)
--- NOTE | 2024-02-28 07:36 | Hospitalist Progress Note ---
Date of Service February 28, 2024 Assessment & Plan (1) Bacteremia: Plan: 63yo presented with back pain/abnormal labs ordered by PCP with CTAP with reports she had been having left sided abdominal pain since along with back pain starting on Friday, associated with dysuria 02/24. Chronic urinary incontinence at baseline On admission, Sepsis w/ WBC 11.8k, Cr 2.55 , Na 129. ALBA w/ Cr 2.55. Lactic 1.8 Provided 2L NSS in ER and additional 2L NS @ 125cc/hr ordered on admission. CTAP noting LEFT hydronephrosis 2nd to 0.7cm mid L ureteral calculus. Urology consulted Blood/urine cx PANSENSITIVE KLEBSIELLA- bacteremia/sepsis suspected 2nd to UTI and underlying infected stone s/p Cystoscopy, Left Retrograde Pyelogram with radiographic interpretation, Left Stent Placement(Left) - Jah Biggs MD 02/24 --NEEDS CONTINUED ABX until DEFINITIVE STONE TX w/ litho outpt given concerns for infected stone as cause for bacteremia/UTIs WBC continued improvement Remains AFEBRILE Renal function IMPROVING, BUN/Cr 22/1.48 and PO hydration encouraged. +BM 02/27, probiotic on abx and monitor for diarrhea/cdiff Monitoring EKG for QTC as considering Cipro at dc however given psych meds/QTC prolonging agents, likely will utilize BACTRIM at dc and will plan to transition in AM pending repeat renal function. Mag 1.6, IV replacement ordered PT/OT consulted, cleared for dc home w/ sister and will plan to dc on PO abx tomorrow pending repeat exam/labs on likely BACTRIM w/ urology f/u at dc as discussed (2) Ureteral calculus, left: Plan: suspected cause for bacteremia/sepsis as above given ongoing UTIs and now w/ bacteremia w/ obstructing stone. Tx as outlined and continued abx at dc until definitive tx/removal of stone (3) ALBA (acute kidney injury): Plan: - suspect combination of pre-renal due (w/ hypotension 2nd to anti-HTN agents) as well as post-renal w/ obstructing stone w/ Cr 2.5 w/ baseline appearing closer to 1.1-1.2 but has fluctuated (likely 2nd to stone/obstruction) Losartan remains on hold, BPs much improved and resuming BP meds as outlined. Avoiding toxins/renal dose meds as needed Renal function normalizing and will monitor in AM to dc on PO abx at renal dose if needed pending labs (4) Urinary tract infection: Plan: as above, suspected 2nd to infected stone. abx/tx as outlined (5) Hyponatremia: Plan: Na 129, initially suspected 2nd to hypovolemia/diarrhea prior to admission however suspect 2nd to infection/bacteremia/ALBA as above. Stool studies negative IVF hydration/abx and urology consulted as above Na NORMALIZED on am labs and staying stable and improvement in PO intake. No further IVF needed (6) Hypertension: Plan: Hypotensive on admission , 2nd to above. 2L NSS bolus provided and continued addition 2l overnight for sepsis/bacteremia Metoprolol resumed 02/25 Amlodipine resumed 02/26 BP stable, 151/88 and planning to RESUME CLONIDINE 0.1mg HS for tonight but will continue with losartan on hold as above pending repeat BPs/renal function in AM but likley will be holding off at dc until stone treatment completed unless needed (7) Diabetes mellitus type 2, uncontrolled: Plan: Controlled on metformin at home with most recent A1c 7.4 BSG AC/HS , SSI while inpatient and BSGs acceptable and will continue to monitor monitor Crcl at dc but would avoid resumption of metformin unless back to baseline (8) Acute diarrhea: Plan: patient with watery diarrhea since 02/18, biofire/cdiff negative no diarrhea reported 02/25 but will monitor on abx -- is moving bowels but no significant increase. probiotic added Plan Chronic stable diagnoses: Schizophrenia/mood disorder - continue Abilify, duloxetine, hydroxyzine; CLONIDINE RESUMING TODAY as above Fibromyalgia - Tylenol as needed, appears stable HLD - continue statin, aspirin, and Plavix VTE ppx: SCDs ordered, Heparin SQ adedd BID (avoided lovenox w/ ALBA) Dispo: hopeful dc 02/28 on PO abx w/ urology follow up Admission and Anticipated Discharge Date Admission Date: February 25, 2024 Supervising Physician Co-Signing Physician Notes The patient was not seen by me. The chart was reviewed. Case discussed with DEBBIE Sandoval. Agree with assessment and plan Subjective Eval this morning, resting in bed. Reports fatigued today/tired but otherwise feeling decent. Moved her bowels this morning, renal function improving. Mag replacement ordered for 1.6 and will monitor. Discussed transition to PO abx for tomorrow given continued improvement and cleared by PT/OT to return home w/ support of sister and will plan for dc tomorrow on PO abx and urology f/u. Discussed LOSARTAN remaining on hold for now but will plan to resume her clonidine this evening and should be back on her home regimen by time of dc w/ exception of losartan pending BP/renal function but likely remaining off for now . Physical Exam 2 Physical Exam: General: 63yo female sitting up in bed, NAD but reporting feeling tired today Head atraumatic, normocephalic, mmm, trachea midline Resp: diminished in the bases but no wheezing/crackles/rales, on ROOM air CV: regular rate/rhythm , rates improved/stable telemetry monitoring, no significant LE edema/calf tenderness, pulses present GI: +BS, soft/no overt tenderness ; no significant CVA tenderness MSK/Neuro: generalized weakness but nonfocal, answering questions appropriately, NOT confused Psych: AOx3, cooperative/pleasant with exam Results & Data Results & Data Vital Signs (Past 12 Hours) Vital Signs Temp Pulse Pulse Resp BP Pulse Ox O2 Del Method 02/28/24 07:28 36.7 C 87 17 128/82 92 Room Air 02/28/24 03:49 37.0 C 76 18 122/71 93 Room Air 02/28/24 02:14 140 H 02/27/24 23:37 36.7 C 70 20 127/81 95 Room Air 02/27/24 22:53 69 02/27/24 22:13 Room Air Laboratory Results 02/28/24 06:07 02/28/24 06:07 Mag 1.6 PG Care Time/CCT Total # of Minutes Spent Total Time Spent with Patient: Total time spent is greater than 50% in coordination of care (as documented) at patient's floor/unit and/or counseling patient: Coding Level of Care Code 42409 SUB INP/OBS CARE 3/50MIN Diagnoses Bacteremia R78.81 Ureteral calculus, left N20.1 ALBA (acute kidney injury) N17.9 Urinary tract infection N39.0 Hyponatremia E87.1 Hypertension I10 Diabetes mellitus type 2, uncontrolled E11.65 Acute diarrhea R19.7
[2024-02-28] MEDS: ADVANCED PROBIOTIC 625 MG CAPSULE PO SCH (09:02)
[2024-02-28] MEDS: MAGNESIUM SULFATE / D5W 1 GM/100 ML BAG IV SCH (09:04)
[2024-02-28] MEDS: cloNIDine HCL 0.1 MG TAB PO SCH (19:29)
[2024-02-29 05:53] LABS: Hematocrit (blood only) 32.2 % (37.0-47.0); Hemoglobin 11.1 g/dl (12.0-16.0); Mean Corpuscular Hgb Conc 34.5 g/dL (32.0-36.0); Mean Platelet Volume 10.4 fL (9.4-12.4); Platelet Count 337 K/uL (130-400); RDW Coefficient of Variation 12.9 % (11.5-14.5); RDW Standard Deviation 40.9 fL (36.4-46.3); White Blood Count 11.26 K/ul (4.8-10.8)
[2024-02-29 06:13] LABS: BUN Creatinine Ratio 12.6 (10-20); Calcium 8.8 mg/dl (8.6-10.3); Creatinine Clr Calc Pharmacy 35.5 ml/min; Magnesium 1.8 mg/dl (1.7-2.4); Potassium 3.5 mmol/L (3.5-5.1)
--- NOTE | 2024-02-29 07:37 | Hospitalist Progress Note ---
Date of Service February 29, 2024 Assessment & Plan (1) Bacteremia: Plan: 63yo presented with back pain/abnormal labs ordered by PCP with CTAP with reports she had been having left sided abdominal pain since along with back pain starting on Friday, associated with dysuria 02/24. Chronic urinary incontinence at baseline Sepsis w/ WBC 11.8k, Cr 2.55 , Na 129. ALBA w/ Cr 2.55 on admission. Lactic 1.8, no procal s/p 4L NSS on admission (2L bolus, followed by 2L @ 125cc/hr) Ceftriaxone 2gm IV CTAP w/ LEFT hydronephrosis 2nd to 0.7cm mid L ureteral calculus. Blood/urine cx PANSENSITIVE KLEBSIELLA- bacteremia/sepsis suspected 2nd to UTI and underlying infected stone Urology consulted s/p Cystoscopy, stent placement w/ Dr Lynn 02/24 Continued Ceftriaxone IV Renal function stable/improved at 19/1.5, losartan remains on hold for now (hold at [place]) WBC with continued improvement and has been AFEBRILE DE-ESCALATE ABX TO BACTRIM TODAY (avoided FLQ given QTC/psych meds) -Monitor renal function to see if needing adjustment but CrCl>30 and will continue BID dosing Probiotic ordered while on abx given need for prolonged course until f/u urology outpatient for definitive stone treatment given concerns for infected stone as cause/source for bacteremia/UTI Bowel regimen/pain control as needed--BM x 3 on 02/27, none today and colace BID RN to provide incentive spirometer, suspect some atelectasis but was provided 4L IVF on admission and may need small dose diuretic but will monitor for now w/ IS as prior ordered on 02/25 given atelectasis on CXR from 02/25 but remains on RA and no overt rales/crackles but is diminished. 1gm IV mag ordered (?PO supp given chronic lows) Home BP meds resumed given improvement in BP w/ metoprolol BID, amlodipine BID and resumed her clonidine last evening however feeling little fatigued today and checking orthostatic VS/consider holding clonidine. CPAP ordered for tonight, compliance encouraged Wanting to monitor overnight but planning for discharge tomorrow if feeling improved as cleared by PT/OT however asked CM to see given social situation if any additional needs/concerns however Amber tells me she is agreeable for home w/ sister. (2) Ureteral calculus, left: Plan: suspected cause for bacteremia/sepsis as above given ongoing UTIs and now w/ bacteremia w/ obstructing stone. Tx as outlined and continued abx at dc until definitive tx/removal of stone (3) ALBA (acute kidney injury): Plan: - suspect combination of pre-renal due (w/ hypotension 2nd to anti-HTN agents) as well as post-renal w/ obstructing stone w/ Cr 2.5 w/ baseline appearing closer to 1.1-1.2 - notable has fluctuated recently to 13-2 most recently from May through August and suspect due to ongoing stone/possible obstruction BP meds held for hypotension which has improved and resumed as outlined with EXCEPTION LOSARTAN and will continue on hold for now Renal dose meds/avoid toxins as discussed and will monitor renal function in the morning to ensure able to continue bactrim BID dosing as long as CrCl remains >30 BMP in AM (4) Urinary tract infection: Plan: as above, suspected 2nd to infected stone. abx/tx as outlined until f/u for stone (5) Hyponatremia: Plan: Na 129, initially suspected 2nd to hypovolemia/diarrhea prior to admission however suspect 2nd to infection/sepsis/bacteremia/ALBA as above. Stool studies negative, monitor for cdiff TSH wnl in november and not on supp at baseline Remaining stable since hydration and tx as outlined. (6) Hypertension: Plan: Hypotensive on admission , 2nd to above. 2L NSS bolus provided and additional 2L continued for ALBA as above Metoprolol resumed 02/25 Amlodipine resumed 02/26 Clonidine resumed PM 02/27 given BP 151/88 however does appear w/ BPs 111/80 overnight and 110/72 this morning and will monitor to hold as needed (placed on hold for now for tonight) Monitor/adjustment as needed (7) Diabetes mellitus type 2, uncontrolled: Plan: Controlled on metformin at home with most recent A1c 7.4 BSG AC/HS , SSI while inpatient and BSGs acceptable and will continue to monitor monitor Crcl at dc to see if able to resume if stable/improved (8) Acute diarrhea: Plan: patient with watery diarrhea since 02/18, biofire/cdiff negative no diarrhea reported 02/25 but will monitor on abx -- is moving bowels but no significant increase but had 3BM yesterday and probiotic ordered NO BM today, monitor. continue probiotic Plan Chronic stable diagnoses: Schizophrenia/mood disorder - continue Abilify, duloxetine, hydroxyzine; CLONIDINE as above Fibromyalgia - Tylenol as needed, appears stable HLD - continue statin, aspirin, and Plavix VTE ppx: SCDs ordered, Heparin SQ BID (avoided lovenox w/ ALBA) Dispo: hopeful dc 03/01 if improvement per patient not feeling stable today for discharge but hopefully tomorrow. Incentive spirometer/CXR ordered and will f/u CPAP ordered for tonight/encouraged compliance and monitoring BPs Admission and Anticipated Discharge Date Admission Date: February 25, 2024 Supervising Physician Co-Signing Physician Notes The patient was not seen by me. The chart was reviewed. Case discussed with DEBBIE Sandoval. Agree with assessment and plan Subjective Eval this morning, resting in bed. Got up to pee, no further back pain. Some SOB this morning, improved since starting 1gm IV magnesium and will monitor. Fatigued, discussed CPAP -- agreeable to trial again tonight as discussed can contribute and should be using hopefully if tolerating tonight. Will monitor BPs this afternoon as well as orthostatic VS and consider holding her clonidine for tonight if needed. BM x 3 yesterday, none today and will add bowel regimen/monitor. Encouraged PO hydration. Clonidine likely to be placed on hold for this evening as can commonly cause constipation as well. Lab monitoring in AM and hopeful dc on continued Bactrim PO. Physical Exam 2 Physical Exam: General: 63yo female sitting up in bed, NAD but reporting feeling tired today Head atraumatic, normocephalic, mmm, trachea midline Resp: diminished in the bases with faint bibasilar crackles but no wheezing/rales and remains on room air. occasional cough nonproductive, 92% on RA CV: regular rate/rhythm ,rates improved/stable telemetry , no significant LE edema/calf tenderness, pulses present GI: +BS, soft, slight distension but no overt tenderness or guarding/rigidity ; no significant CVA tenderness MSK/Neuro: generalized weakness but nonfocal-- IMPROVING answering questions appropriately, NOT confused Psych: AOx3, cooperative/pleasant with exam Results & Data Results & Data Vital Signs (Past 12 Hours) Vital Signs Temp Pulse Pulse Resp BP Pulse Ox O2 Del Method 02/29/24 04:08 36.8 C 83 17 137/82 94 Room Air 02/28/24 23:47 36.7 C 66 17 111/80 94 Room Air 02/28/24 23:00 62 02/28/24 20:18 Room Air 02/28/24 20:07 36.9 C 77 18 146/78 H 96 Room Air Laboratory Results 02/29/24 05:23 02/29/24 05:23 Mag 1.8 PG Care Time/CCT Total # of Minutes Spent Total Time Spent with Patient: Total time spent is greater than 50% in coordination of care (as documented) at patient's floor/unit and/or counseling patient: Coding Level of Care Code 17446 SUB INP/OBS CARE 3/50MIN Diagnoses Bacteremia R78.81 Ureteral calculus, left N20.1 ALBA (acute kidney injury) N17.9 Urinary tract infection N39.0 Hyponatremia E87.1 Hypertension I10 Diabetes mellitus type 2, uncontrolled E11.65 Acute diarrhea R19.7
[2024-02-29] MEDS: SULFAMETHOXAZOLE/TRIMETHOPRIM DS 800/160MG TAB PO SCH (08:22)
[2024-02-29] MEDS: MAGNESIUM SULFATE / D5W 1 GM/100 ML BAG IV ONE (10:24)
--- NOTE | 2024-02-29 13:35 | XRay Report ---
XR chest 1V portable HISTORY: 63 years-old Female eval atelectasis vs pna acute shortness of breath COMPARISON: 02/26/2024 TECHNIQUE: AP view of the chest FINDINGS: Heart size is normal. Mild linear left basilar atelectasis noted. No pneumothorax, pleural effusion o r pulmonary edema. Bones appear intact. IMPRESSION: Persistent left basilar atelectasis. ACT 112: Negative or not required by law. The above report was generated using voice recognition software. It may contain grammatical, syntax o r spelling errors. Electronically signed by: Conrad Lakhani M.D. 02/29/2024 1:34 PM
[2024-02-29] MEDS: DOCUSATE SODIUM 100 MG CAP PO SCH (16:17)
[2024-03-01 07:37] LABS: Hematocrit (blood only) 32.8 % (37.0-47.0); Hemoglobin 11.3 g/dl (12.0-16.0); Mean Corpuscular Hemoglobin 30.3 pg (25.0-34.0); Mean Corpuscular Hgb Conc 34.5 g/dL (32.0-36.0); Mean Corpuscular Volume 87.9 fL (80.0-100.0); Mean Platelet Volume 9.8 fL (9.4-12.4); Platelet Count 370 K/uL (130-400); RDW Standard Deviation 41.4 fL (36.4-46.3); Red Blood Count 3.73 M/uL (4.20-5.40); White Blood Count 13.46 K/ul (4.8-10.8)
--- NOTE | 2024-03-01 07:54 | Hospitalist Progress Note ---
Date of Service March 01, 2024 Assessment & Plan (1) Bacteremia: Plan: 63yo presented with back pain/abnormal labs ordered by PCP with CTAP with reports she had been having left sided abdominal pain since along with back pain starting on Friday, associated with dysuria 02/24. Chronic urinary incontinence at baseline Sepsis w/ WBC 11.8k, Cr 2.55 , Na 129. ALBA w/ Cr 2.55 on admission. Lactic 1.8, no procal s/p 4L NSS on admission (2L bolus, followed by 2L @ 125cc/hr) Ceftriaxone 2gm IV CTAP w/ LEFT hydronephrosis 2nd to 0.7cm mid L ureteral calculus. Blood/urine cx PANSENSITIVE KLEBSIELLA - bacteremia/sepsis suspected 2nd to UTI and underlying infected stone Urology consult, s/p Cystoscopy, stent placement w/ Dr Lynn 02/24 Ceftriaxone IV --> Abx de-escalated to BACTRIM to avoid QTC prolongation -will need extended course until f/u for definitive stone treatment given likely cause for above and is infected stone. -Probiotic started/continue at dc while on prolonged abx. WBC elevation 13k however afebrile/feeling well.. CXR prior w/ atelectasis noted and IS ordered/encouraged and has been using. 93% on RA and will continue to monitor for worsened leukocytosis/fever for further evaluation. Renal function stable/improved and LOSARTAN STOPPED/would discontinue at discharge. -Monitor for adjustment to medications as needed (ie, metformin) however notable + orthostatic VS (+sx and reports has been ongoing at PCP but not addressed) --> Metoprolol/amlodipine/clonidine back on HOLD, repeat VS improved and no longer positive later this morning and discussed with patient likely NOT needing the metoprolol unless HR elevated however if needed would use MUCH lower rate but likely opt to resume her amlodipine and monitor OFF the metoprolol/clonidine as well as discontinue losartan given renal function/stone at discharge. Continue to monitor orthostatic VS in AM PT/OT cleared for return home and if BPs staying stable can monitor to resume amlodipine and continue monitoring BPs at home with close f/u urology for definitive stone treatment at discharge. Hopeful dc 03/02 (2) Ureteral calculus, left: Plan: suspected cause for bacteremia/sepsis as above given ongoing UTIs and now w/ bacteremia w/ obstructing stone and ongoing abx until definitive stone tx as above (3) ALBA (acute kidney injury): Plan: Suspect combination of pre-renal due (w/ hypotension 2nd to anti-HTN agents) as well as post-renal w/ obstructing stone w/ Cr 2.5 w/ baseline appearing closer to 1.1-1.2 - notable has fluctuated recently to 13-2 most recently from May through August and suspect due to ongoing stone/possible obstruction BP meds held for hypotension which had improved and resumed ant-HTN agents as outlined below however HOLDING again and remains OFF for now w/ improvement and Cr 1.58 ?2nd to BP and will monitor on repeat Renal dose meds/avoid toxins and monitor CrCl to see if needing adj to bactrim or metformin at dc. (4) Urinary tract infection: Plan: as above (5) Hyponatremia: Plan: Na 129, 2nd to sepsis/hypovolemia/infected stone/UTI as above w/ bacteremia Stool studies negative, TSH recently wnl and not on supplementation Has remained stable w/ tx as above (6) Hypertension: Plan: Hypotensive on admission , 2nd to above. 2L NSS bolus provided and additional 2L continued for ALBA as above Metoprolol resumed 02/25, Amlodipine resumed 5mg BID 02/26 and Clonidine resumed PM 02/27 given BP 151/88 However does appear w/ BPs 111/80 overnight prior and clonidine placed back on HOLD and given + orthostatic VS placed amlodipine/metoprolol back on hold and suspect could plan for dc on AMLODIPINE ALONE PENDING REPEAT BP MEASUREMENTS/ORTHOSTATIC VS Monitor (7) Diabetes mellitus type 2, uncontrolled: Plan: Controlled on metformin at home with most recent A1c 7.4 BSG AC/HS , SSI while inpatient and BSGs acceptable and will continue to monitor monitor Crcl at dc to see if able to resume if stable/improved (8) Acute diarrhea: Plan: patient with watery diarrhea since 02/18, biofire/cdiff negative no diarrhea reported 02/25 but will monitor on abx -- is moving bowels but no significant increase but had 3BM yesterday and probiotic ordered +BM 18m formed, monitor for cdiff on abx and continue probiotic Plan Chronic stable diagnoses: Schizophrenia/mood disorder - continue Abilify, duloxetine, hydroxyzine; CLONIDINE as above and likely stop at dc (or could resume lower dose but likely NOT w/ metoprolol) Fibromyalgia - Tylenol as needed, appears stable HLD - continue statin, aspirin, and Plavix VTE ppx: SCDs ordered, Heparin SQ BID (avoided lovenox w/ ALBA) continued Dispo: hopeful dc 03/02 pending BP measurements/orthostatics and labs in AM. Outpt f/u for CPAP/NIYAH not treated recommended Admission and Anticipated Discharge Date Admission Date: February 25, 2024 Subjective Evaluated this morning. Sitting up in bed, orthostatic VS positive yesterday, BP 100/60s this morning and metoprolol/amlodipine held and discussed repeat orthostatics --> IMPROVING 120s/60-70s and improvement in sx. Discussed holding off BP meds and if needing will plan to resume her amlodipine but if needing metoprolol would suspect needing much lower dose. +BM , soft today. No increased diarrhea and repeat discussion about monitoring for cdiff on abx. GIven BP/adjustment to meds will plan for continued monitoring and plan for discharge tomorrow. Physical Exam Physical Exam: General: 63yo female sitting up in bed, NAD but reporting feeling tired today Head atraumatic, normocephalic, mm slightly dry, trachea midline Resp: diminished in the bases with faint bibasilar crackles (improving) , no wheezing/rales and remains on room air. nonproductive cough, 98% on RA CV: regular rate/rhythm ,rates improved/stable telemetry (some ectopy) , no significant LE edema/calf tenderness, pulses present GI: +BS, soft, nontender ; no significant CVA tenderness MSK/Neuro: generalized weakness but nonfocal-- IMPROVING answering questions appropriately, NOT confused Psych: AOx3, cooperative/pleasant with exam Results & Data Results & Data Vital Signs (Past 12 Hours) Vital Signs Temp Pulse Pulse Resp BP BP Pulse Ox 03/01/24 07:41 36.7 C 86 18 100/79 98 03/01/24 04:01 37.0 C 80 17 120/79 94 02/29/24 23:55 36.7 C 75 17 124/85 96 02/29/24 22:58 68 02/29/24 21:36 O2 Del Method 11/18/24 07:41 Room Air 03/01/24 04:01 Room Air 02/29/24 23:55 Room Air 02/29/24 22:58 02/29/24 21:36 Room Air PG Care Time/CCT Total # of Minutes Spent Total Time Spent with Patient: Total time spent is greater than 50% in coordination of care (as documented) at patient's floor/unit and/or counseling patient: Coding Level of Care Code 93961 SUB INP/OBS CARE 3/50MIN Diagnoses Bacteremia R78.81 Ureteral calculus, left N20.1 ALBA (acute kidney injury) N17.9 Urinary tract infection N39.0 Hyponatremia E87.1 Hypertension I10 Diabetes mellitus type 2, uncontrolled E11.65 Acute diarrhea R19.7
[2024-03-01 07:58] LABS: Basophils # (auto) 0.12 K/uL (0.00-0.20); Basophils % (auto) 0.9 %; Eosinophils # (auto) 0.35 K/uL (0.00-0.50); Eosinophils % (auto) 2.6 %; Immature Granulocytes # (auto) 0.87 K/uL (0.01-0.20); Immature Granulocytes % (auto) 6.5 %; Lymphocytes # (auto) 1.92 K/uL (1.20-3.40); Lymphocytes % (auto) 14.3 %; Monocytes # (auto) 0.74 K/uL (0.11-0.59); Monocytes % (auto) 5.5 %; Neutrophils # (auto) 9.46 K/uL (1.40-6.50); Neutrophils % (auto) 70.2 %
[2024-03-01 08:01] LABS: BUN Creatinine Ratio 11.4 (10-20); Calcium 8.9 mg/dl (8.6-10.3); Magnesium 1.7 mg/dl (1.7-2.4); Potassium 3.8 mmol/L (3.5-5.1)
[2024-03-01] MEDS: MAGNESIUM SULFATE / D5W 1 GM/100 ML BAG IV ONE (10:00)
[2024-03-01 10:10] LABS: Phosphorus 3.6 mg/dl (2.5-4.9)
--- NOTE | 2024-03-01 19:00 | Electrocardiogram Report ---
Test Reason : Blood Pressure : */* mmHG Vent. Rate : 78 BPM Atrial Rate : 78 BPM P-R Int : 180 ms QRS Dur : 98 ms QT Int : 394 ms P-R-T Axes : 48 -33 43 degrees QTcB Int : 449 ms Sinus rhythm with occasional Premature ventricular complexes and Premature atrial complexes Left axis deviation Poor R wave progression, consider anterior RI vs. lead placement vs. LVH Abnormal ECG When compared with ECG of 27-Feb-2024 04:30, Premature ventricular complexes are now Present Premature atrial complexes are now Present Confirmed by Miguel A George ([id number] on 03/01/2024 6:59:55 PM Referred By: REFERRED SELF Confirmed By: Miguel A George
--- NOTE | 2024-03-01 19:00 | Electrocardiogram Report ---
Test Reason : Blood Pressure : */* mmHG Vent. Rate : 81 BPM Atrial Rate : 81 BPM P-R Int : 168 ms QRS Dur : 98 ms QT Int : 382 ms P-R-T Axes : 33 -36 53 degrees QTcB Int : 443 ms Normal sinus rhythm Possible Left atrial enlargement Left axis deviation Anterior infarct Abnormal ECG When compared with ECG of 28-Feb-2024 05:07, Premature ventricular complexes are no longer Present Premature atrial complexes are no longer Present Confirmed by Miguel A George ([id number] on 03/01/2024 7:00:27 PM Referred By: REFERRED SELF Confirmed By: Miguel A George
[2024-03-01 19:12] VITALS: RESP 18
[2024-03-02 06:44] LABS: Hematocrit (blood only) 33.7 % (37.0-47.0); Hemoglobin 11.5 g/dl (12.0-16.0); Mean Corpuscular Hemoglobin 30.2 pg (25.0-34.0); Mean Corpuscular Hgb Conc 34.1 g/dL (32.0-36.0); Mean Corpuscular Volume 88.5 fL (80.0-100.0); Mean Platelet Volume 9.8 fL (9.4-12.4); Platelet Count 395 K/uL (130-400); RDW Standard Deviation 41.4 fL (36.4-46.3); Red Blood Count 3.81 M/uL (4.20-5.40); White Blood Count 14.16 K/ul (4.8-10.8)
[2024-03-02 07:04] LABS: Basophils % (auto) 0.7 %; Eosinophils # (auto) 0.32 K/uL (0.00-0.50); Eosinophils % (auto) 2.3 %; Immature Granulocytes # (auto) 0.81 K/uL (0.01-0.20); Immature Granulocytes % (auto) 5.7 %; Lymphocytes # (auto) 2.16 K/uL (1.20-3.40); Lymphocytes % (auto) 15.3 %; Monocytes # (auto) 0.63 K/uL (0.11-0.59); Monocytes % (auto) 4.4 %; Neutrophils # (auto) 10.14 K/uL (1.40-6.50); Neutrophils % (auto) 71.6 %; Polychromasia 1+
[2024-03-02 07:09] LABS: BUN Creatinine Ratio 11.5 (10-20); Calcium 9.1 mg/dl (8.6-10.3); Creatinine Clr Calc Pharmacy 37.1 ml/min; Magnesium 1.7 mg/dl (1.7-2.4)
[2024-03-02 07:36] VITALS: O2SAT 97
[2024-03-02] MEDS: METOPROLOL TARTRATE 25 MG TAB PO STA (08:33)
[2024-03-02 11:12] VITALS: TEMP 98.1
[2024-03-02 16:52] VITALS: BP 150/86; PULSE 73
--- NOTE | 2024-03-02 20:07 | Discharge Summary ---
Discharge Summary Date of Service March 02, 2024 Principal Dx & Hospital Course #1 = Principal Diagnosis (1) Bacteremia: 63yo presented with back pain/abnormal labs ordered by PCP with CTAP with reports she had been having left sided abdominal pain and associated with dysuria. Chronic urinary incontinence at baseline. Urosepsis secondary to acute UTI and underlying infected stone - Ceftriaxone 2gm IV then transitioned to Bactrim. Continued Bactrim on discharge until outpatient urology follow-up - CTAP w/ LEFT hydronephrosis 2nd to 0.7cm mid L ureteral calculus - Blood/urine cx PANSENSITIVE KLEBSIELLA Urology consulted - s/p Cystoscopy, stent placement w/ Dr Lynn 02/24 - will need extended course until f/u for definitive stone treatment given likely cause for above and is infected stone. - Probiotic started/continued at dc while on prolonged abx (2) ALBA (acute kidney injury): Suspect combination of pre-renal due (w/ hypotension 2nd to anti-HTN agents) as well as post-renal w/ obstructing stone w/ Cr 2.5 w/ baseline appearing closer to 1.1-1.2 - notable has fluctuated recently to 13-2 most recently from May through August and suspect due to ongoing stone/possible obstruction - Renal dose meds/avoid toxins -Hold losartan (3) Hyponatremia: Na 129 on admission, 2nd to sepsis/hypovolemia/infected stone/UTI as above w/ bacteremia Stool studies negative, TSH recently wnl and not on supplementation Resolved (4) Hypertension: Hypotensive on admission , 2nd to above. 2L NSS bolus provided and additional 2L continued for ALBA Multiple adjustments made to antihypertensive regimen due to orthostasis Continue amlodipine 5 mg twice daily Metoprolol decreased to 25 mg twice daily Discontinued losartan Discontinued clonidine (5) Diabetes mellitus type 2, uncontrolled: Controlled on metformin at home with most recent A1c 7.4 BSG AC/HS , SSI while inpatient and BSGs acceptable (6) Urinary tract infection: as above Plan Chronic stable diagnoses: Schizophrenia/mood disorder - continue Abilify, duloxetine, hydroxyzine; CLONIDINE as above and stop at dc Fibromyalgia - Tylenol as needed, appears stable HLD - continue statin, aspirin, and Plavix VTE ppx: SCDs ordered, Heparin SQ BID (avoided lovenox w/ ALBA) continued Outpt f/u for CPAP/NIYAH recommended Notes For Next Care Provider Monitor blood pressures given adjustments to antihypertensive regimen Recommend CPAP/NIYAH outpatient follow-up Will continue Bactrim until urology follow-up appointment Patient is to get CBC and CMP on 03/04 Medication Changes From Visit Metoprolol decreased to 25 mg twice daily Discontinued losartan Discontinue clonidine Bactrim until urology follow-up appointment Admission HPI Per Admitting Provider Patient is a 63-year-old female with a past medical history of hypertension, schizophrenia, type 2 diabetes, hyperlipidemia, and fibromyalgia. She presents today for abnormal labs and back pain. She was seen by her PCP yesterday who ordered a CT scan which showed left hydronephrosis secondary to a 0.7 cm mid left ureteral calculus. the patient was seen at bedside and stated that she has had left-sided abdominal pain that began on along with back pain that began on Friday. She endorses dysuria today. She has chronic urinary incontinence, but it has been worse for the past few days. She denies hematuria. She also has had watery diarrhea since , x 2 episodes daily, no recent antibiotic use. She does not stay well-hydrated at home, even with acute diarrhea, she drinks only marc Coke daily. Patient endorses dizziness and lightheadedness for the past year, she stated that she has been hypotensive, recent BP med changes. She also endorses chronic nausea with 2 episodes of vomiting this week. She stated that she has chronic dyspnea, cough, and rhinorrhea. Patient denies fever, chills, headache, vision changes, chest pain, hematuria, edema, numbness, tingling. She smokes a about 10 cigarettes a day, denies need for nicotine patch at this time. No alcohol use. She does smoke cannabis daily, possibly 4-8 "joints" a day. She lives at home alone, her sister checks in on her frequently. She denies past history of cancer, COPD, asthma, kidney disease. 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 She wishes to be DNR/DNI at this time. She stated that she is to use a BiPAP at home but has not in a long time. She took all of her home medications this morning including her newly reduced losartan dose. Urology to evaluate and take to procedure around 1600. Discharge Exam General: No acute distress, nondiaphoretic, well-developed, well-nourished. Skin: The skin was without rashes, erythema, edema, or bruising. Cardiac: Regular rate and rhythm without murmurs gallops or rubs. Pulm: Clear to auscultation bilaterally without wheezes, rales or rhonchi. No respiratory distress. 97% on room air. Abdominal: Soft, nontender, nondistended. Bowel sounds present. Neuro: A&O x3. No focal neurological deficits. Discharge Plan Discharge Items Patient Disposition: Home - Self-Care Reason For Visit: URTERAL STONE, ALBA, UTI Discharge Diagnosis: Urinary Tract Infection, Bacteremia, Obstructing Kidney Stone Goals: You have been hospitalized for an urgent problem which required surgery. During your stay at [facility], we have made an effort to correct the problem that brought you to the hospital while keeping you as comfortable as possible. Surgery and medications were used to bring your condition under control and your discharge instructions will include directions for any medications you should take after leaving the hospital. Please make sure to follow the advice of your surgeon regarding follow up with the surgeon and with your primary care provider. Activity: As commented below Non-emergency contact: Primary Care Provider and Urologist Call non-emergency contact if: you have any medication questions, your symptoms worsen, your pain is concerning for you and you have a fever Follow-up/Referrals: Viktor Orozco MD [Primary Care Provider] - 03/15/24 3:00 pm (Hospital follow up scheduled March 15 at 3:00) Jah Biggs MD [Physician] - 03/09/24 3:30 pm Diet: Carb Consistent or DM2 and Heart Healthy Ambulatory Orders: Basic Metabolic Panel (Routine) Timeframe: 2 Days Location: Determined by Patient Ordered By: Amira Forrest Complete Blood Count no Diff (Timed) Timeframe: 2 Days Location: Determined by Patient Ordered By: Amira Forrest Addtl Attending Provider Instructions: Amber, You have been hospitalized for urinary tract infection and renal failure due to an obstructing kidney stone, which as discussed is suspected as the cause for repeat urinary tract infections and bacteria found in the blood likely due from an INFECTED STONE. We consulted Urology and you underwent a stent placement and your renal function is slowly but surely returning to baseline and you have been continued on antibiotics and are being continued on longer course of antibiotics until seen by urology and set up for treatment with lithotripsy (shock waves) to break up and remove this stone. They will repeat cultures prior to procedure and determine appropriate length of antibiotics. You are being discharged on antibiotics until your follow-up appointment with urology to prevent the infection from returning. Your urology follow-up appointment is scheduled for 03/09/24 at 3:30 PM. Your blood pressure medications and clonidine have been adjusted during your hospitalization as outlined: Continue your amlodipine 5 mg twice daily Metoprolol has been reduced to 25 mg twice daily (previously on 50 mg twice daily) STOP your losartan STOP your clonidine You will follow-up with your PCP after discharge who will monitor your blood pressure and kidney function. At discharge, please continue your antibiotic, BACTRIM, TWICE DAILY as prescribed. Please monitor for any significant increase in diarrhea as antibi otics have the risk for cdiff however you have been on them and are needing to be continued on them due to the infection. Please get blood work done on , 03/04/24 to monitor your infection and kidney function. A lab slip has been printed with your discharge papers. PLEASE AVOID IBUPROFEN FOR NOW TO PREVENT WORSENED RENAL FUNCTION. Use Tylenol as needed for pain but do NOT take more than 3000mg in a 24hour period of time. Please continue to stay well hydrated and push oral fluids at discharge. Please follow up with primary care in the next 7-10 days after discharge to monitor your status and help to coordinate your care. Please return to the ER with any increased pain, fever, inability to tolerate oral fluids, or for any symptoms concerning for you. It has been a pleasure being a part of the medical team providing for you while you have been in the hospital. Take care! Pending Studies at Discharge: Yes Studies:: Blood cultures -- klebsiella on preliminary after 48 hours. Stand-Alone Forms: My [employer], Smoking Cessation Medications and DC Order Prescriptions: New sulfamethoxazole-trimethoprim [Bactrim DS] 800-160 mg Tablet 1 tab PO Q12 Qty: 14 0RF metoprolol tartrate 25 mg tablet 25 mg PO BID Qty: 60 0RF Continued metformin 1,000 mg tablet 1,000 mg PO BID Qty: 180 1RF amlodipine 5 mg tablet 5 mg PO BID Qty: 180 1RF clopidogrel 75 mg tablet 75 mg PO QAM Qty: 90 1RF cyclobenzaprine 10 mg tablet 10 mg PO TID PRN (Reason: muscle spasm) Qty: 30 0RF hydroxyzine HCl 25 mg tablet 25 mg PO Q4H PRN (Reason: Anxiety) Qty: 30 0RF aripiprazole [Abilify] 5 mg tablet 2.5 mg PO DAILY atorvastatin 80 mg tablet 80 mg PO QPM Qty: 90 3RF Patient Comments: Not taking nystatin 100,000 unit/gram powder 1 applic topical DAILY PRN (Reason: skin folds) Qty: 30 0RF duloxetine [Cymbalta] 60 mg capsule,delayed release(DR/EC) 60 mg PO QAM Patient Comments: Takes along with the 30mg tablet for a total of 90mg daily Rx Instructions: Take 60mg w/ 30mg capsules to equal 90mg by mouth every morning duloxetine [Cymbalta] 30 mg capsule,delayed release(DR/EC) 30 mg PO QAM Patient Comments: Takes along with the 60mg tablet for a total of 90mg daily Rx Instructions: Take 30mg w/ 60mg capsules to equal 90mg by mouth every morning nitroglycerin 0.4 mg tablet, sublingual 0.4 mg SL DIRECTED PRN (Reason: Chest Pain) Qty: 30 3RF acetaminophen 325 mg Tablet 650 mg PO Q4H PRN (Reason: pain) Qty: 30 0RF lidocaine 5 % Adhesive Patch,Medicated 1 patch transdermal QAM Qty: 30 0RF aspirin [Children's Aspirin] 81 mg Tablet,Chewable 81 mg PO QPM Qty: 30 0RF Cerovite Senior 0.4 mg-300 mcg- 250 mcg Tablet 1 tab PO QAM Qty: 30 0RF Held ibuprofen 200 mg Tablet 200 mg PO Q8H PRN (Reason: pain) Qty: 30 0RF Hold Instructions: AVOID IBUPROFEN FOR NOW PLEASE Discontinued clonidine HCl 0.1 mg tablet 0.1 mg PO HS Qty: 90 1RF metoprolol tartrate 50 mg tablet 50 mg PO BID 90 Days Qty: 180 1RF losartan 50 mg tablet 25 mg PO DAILY Qty: 90 1RF No Action (DME) [employer] Verio test strips Strip See Rx Instructions .Route Qty: 100 0RF Rx Instructions: As directed up to twice daily to check BS (DME) blood-glucose meter [[employer] Verio Flex Start] Kit See Rx Instructions .Route Qty: 1 0RF Rx Instructions: As directed to check blood sugar daily (DME) lancets [OneTouch Delica Plus Lancet] 33 gauge misc See Rx Instructions .Route Qty: 100 1RF Rx Instructions: As directed to check BS Discharge Orders: Discharge Order (Routine); Ordered 03/02/24 Ordered By: Amira Kaba/Other Patient Handouts: Kidney Stones: Are You at Risk?, Understanding Kidney Stones Admission Data Admit Date/Time: 02/25/24 16:21 Attending Provider: Telma Kelsey Admit Provider: Hao Alvarez Primary Care Provider: Viktor Orozco Other Providers: Jah Biggs; Gerald Martinez Other Interventions: Vital Signs Assessment Last Done: 02/25/24 17:35 Discharge Summary Assessment (RN) Last Done: 03/02/24 16:50 Hospital Stay Data Consultations 02/25/24 14:21 ED Decision to Admit Stat 02/25/24 15:01 Consult Urology Routine Procedures Performed Operation Date: 02/25/24 10:45 Actual Procedures p Cystoscopy, Left Retrograde Pyelogram, Left Stent Placement(Left) - Jah iBggs MD Diagnostic Imagining Performed 02/25/24 FL retrograde includes kub Routine Pending Results Patient Have Any Pending Studies at Discharge: Yes Discharge Instructions Given to Patient (Per Discharging Provider) Amber, You have been hospitalized for urinary tract infection and renal failure due to an obstructing kidney stone, which as discussed is suspected as the cause for repeat urinary tract infections and bacteria found in the blood likely due from an INFECTED STONE. We consulted Urology and you underwent a stent placement and your renal function is slowly but surely returning to baseline and you have been continued on antibiotics and are being continued on longer course of antibiotics until seen by urology and set up for treatment with lithotripsy (shock waves) to break up and remove this stone. They will repeat cultures prior to procedure and determine appropriate length of antibiotics. You are being discharged on antibiotics until your follow-up appointment with urology to prevent the infection from returning. Your urology follow-up appointment is scheduled for 03/09/24 at 3:30 PM. Your blood pressure medications and clonidine have been adjusted during your hospitalization as outlined: Continue your amlodipine 5 mg twice daily Metoprolol has been reduced to 25 mg twice daily (previously on 50 mg twice daily) STOP your losartan STOP your clonidine You will follow-up with your PCP after discharge who will monitor your blood pressure and kidney function. At discharge, please continue your antibiotic, BACTRIM, TWICE DAILY as prescribed. Please monitor for any significant increase in diarrhea as antibiotics have the risk for cdiff however you have been on them and are needing to be continued on them due to the infection. Please get blood work done on , 03/04/24 to monitor your infection and kidney function. A lab slip has been printed with your discharge papers. PLEASE AVOID IBUPROFEN FOR NOW TO PREVENT WORSENED RENAL FUNCTION. Use Tylenol as needed for pain but do NOT take more than 3000mg in a 24hour period of time. Please continue to stay well hydrated and push oral fluids at discharge. Please follow up with primary care in the next 7-10 days after discharge to monitor your status and help to coordinate your care. Please return to the ER with any increased pain, fever, inability to tolerate oral fluids, or for any symptoms concerning for you. It has been a pleasure being a part of the medical team providing for you while you have been in the hospital. Take care! Supervising Physician Co-Signing Physician Notes DEBBIE Supervision Note: I personally saw and examined the patient. I verified all andrew points and agree with DEBBIE Forrest with the following exceptions and/or additions: S-patient feeling much better, no pain. Is not feeling dizzy anymore and has been having these dizzy spells with sweats for years. She has been lowered on her metoprolol and her clonidine and losartan were discontinued O- Vitals reviewed Gen: [AAOx3, NAD] HEENT: [anicteric sclerae, EOMI] CV: [RRR no mgr nl S1S2] Pulm: [CTAB no wcr] Abd: [+BS soft NT ND no masses or hernias] Ext: [no edema, 2+ DP pulses] Skin: [no rashes, warm/dry] Neuro: [full strength throughout] A/M-25-etpy-old female here with UTI with bacteremia, left ureterolithiasis, acute kidney injury, and orthostatic hypotension Now much improved Continue antibiotics Medication changes made as above for orthostasis Check CBC and BMP in 2 days given persistent leukocytosis although likely to trend down soon Total Time Total Time Spent Total Time Spent (In Minutes): Greater than 30 minutes spent completing this discharge process including direct patient care, medication reconciliation, documentation, review of labs and images, and coordination of care. Coding Level of Care Code 87429 INP/OBS DISCH >30 MIN Diagnoses Bacteremia R78.81 ALBA (acute kidney injury) N17.9 Hyponatremia E87.1 Hypertension I10 Diabetes mellitus type 2, uncontrolled E11.65 Urinary tract infection N39.0
== END 2024-03-02 16:52 | disposition home or self-care (01) | DRG 854 ==
LOC: ED 11:50 → OR 16:20 → 2E 16:20 → SUATTDRO 16:21